=== PATIENT | female | born 1935 | race Caucasian/White ===

== ENCOUNTER → 2016-08-19 | Outpatient (CLI) | payer MEDICARE, BC ==
[2015-09-12 09:10] VITALS: BP 104/59
[~2016-08-19] MED LIST: ACET325T9 PO; ALEN70SO3 PO; ASPI81TA2 PO; CALC-507 PO; COLE1TAB PO; IBUP200T58 PO; LISI10TA2 PO; MULT-245 PO; OMEP40CA2 PO
--- NOTE | 2016-08-19 12:47 | RAD ---
Pelvis, single view, 08/19/2016: History: Low back pain Comparison is made to a study from 02/09/2015. There are old healed fractures of the superior and inferior pubic rami on the left. No recent pelvic fracture is seen. There is mild spurring at both hip joints. Bilateral pedicle screws and fixation rods are present at L5 and S1. IMPRESSION: No acute pelvic abnormality is detected.
== END | disposition home or self-care (01) ==
LOC: RAD 11:47
PROVIDERS: ATTEND Family Medicine
DX: M54.5 Low back pain (principal)
CPT/HCPCS: 72170

== ENCOUNTER → 2017-01-07 | Outpatient (CLI) | payer MEDICARE, BC ==
[2016-09-25 11:26] VITALS: BP 133/64
[~2017-01-07] MED LIST changes: +ASPI-630 PO; -ASPI81TA2 PO
--- NOTE | 2017-01-07 11:26 | CARD ---
APPROVED REPORT EXAM: Two-dimensional and M-mode echocardiogram with Doppler and color Doppler. Other Information Quality : GoodHR: 87bpm Rhythm : NSR INDICATION Congestive Heart Failure Chronic diastolic heart failure RISK FACTORS Hypertension Family History Leg edema 2D DIMENSIONS RVDd3.0 (2.9-3.5cm)Left Atrium(2D)3.1 (1.6-4.0cm) IVSd1.0 (0.7-1.1cm)Aortic Root(2D)2.4 (2.0-3.7cm) LVDd4.2 (3.9-5.9cm)LVOT Diameter2.1 (1.8-2.4cm) PWd1.0 (0.7-1.1cm)LVDs2.5 (2.5-4.0cm) FS (%) 40.7 %SV57.4 ml Aortic Valve AoV Peak Prabhu.133.2cm/sAoV VTI27.9cm AO Peak GR.7.1mmHgLVOT Peak Prabhu.109.6cm/s AO Mean GR.4mmHgAVA (VMAX)2.93cm2 AI P 1/2 Tvlz223gs Mitral Valve MV E Ptwhxrzn82.5cm/sMV E Peak Gr.2mmHg MV DECEL [id number] A Qewqhmzm45.0cm/s MV E Mean Gr.1mmHgE/A Ratio0.6 MV A Kxbwerap16iz Pulmonary Valve PV Peak Slgtzcuc801.5cm/s Tricuspid Valve TR P. Natbceyy865fy/sTR Peak Gr.25mmHg Pulmonary Vein S1 Uzbcvyna59.0cm/sD2 Xrfsnfki97.8cm/s PVa ioyeqzdm24imzo LEFT VENTRICLE The left ventricle is normal size. There is borderline to mild concentric left ventricular hypertroph y. The left ventricular systolic function is normal and the ejection fraction is within normal range. The Ejection Fraction is 60-65%. There is normal LV segmental wall motion. Transmitral Doppler flow pattern is Grade I-abnormal relaxation pattern. RIGHT VENTRICLE The right ventricle is normal size. There is normal right ventricular wall thickness. The right ventr icular systolic function is normal. ATRIA The left atrium size is normal. The right atrium size is normal. The interatrial septum is intact wit h no evidence for an atrial septal defect or patent foramen ovale as noted on 2-D or Doppler imaging. AORTIC VALVE The aortic valve is moderately sclerotic. The aortic valve is trileaflet. Doppler and Color Flow reve aled mild to moderate aortic regurgitation. There is no significant aortic valvular stenosis. MITRAL VALVE Mitral annular calcification is mild. The mitral valve leaflets are mildly thickened. There is no tushar dence of mitral valve prolapse. There is no mitral valve stenosis. Doppler and Color Flow revealed tr adam to mild mitral regurgitation. TRICUSPID VALVE Doppler and Color Flow revealed mild tricuspid regurgitation. The pulmonary artery systolic pressure is estimated at 28 mmHg. PULMONIC VALVE The pulmonary valve is not well visualized but appears to open adequately. Doppler and Color Flow rev ealed trace pulmonic valvular regurgitation. There is no pulmonic valvular stenosis by spectral Doppl er. GREAT VESSELS The aortic root is normal in size. The ascending aorta is normal in size. The pulmonary artery is nor mal. The IVC is normal in size and collapses >50% with inspiration. PERICARDIAL EFFUSION There is no evidence of significant pericardial effusion. Critical Notification Critical Value: No <Conclusion> The left ventricle is normal size. The left ventricular systolic function is normal and the ejection fraction is within normal range. The Ejection Fraction is 60-65%. There is borderline to mild concentric left ventricular hypertrophy. There is no significant aortic valvular stenosis. Doppler and Color Flow revealed mild to moderate aortic regurgitation. Doppler and Color Flow revealed trace to mild mitral regurgitation. Doppler and Color Flow revealed mild tricuspid regurgitation. The pulmonary artery systolic pressure is estimated at 28 mmHg.
== END | disposition home or self-care (01) ==
LOC: ECHO 08:44
PROVIDERS: ATTEND Internal Medicine Cardiovascular Disease
DX: I50.32 Chronic diastolic (congestive) heart failure (principal)
CPT/HCPCS: 93306

== ENCOUNTER → 2017-08-31 | Outpatient (CLI) | payer MEDICARE, BC ==
[~2017-08-31] MED LIST changes: -ACET325T9 PO; -ALEN70SO3 PO; -ASPI-630 PO; -CALC-507 PO; -COLE1TAB PO; -IBUP200T58 PO; +IOHEXOL 180 MG/ML 10 ML VIAL.; -LISI10TA2 PO; -MULT-245 PO; -OMEP40CA2 PO; +methylPREDNISolone ACETATE 40 MG/ML VIAL.; +methylPREDNISolone ACETATE 80 MG/ML VIAL.
== END | disposition home or self-care (01) ==
LOC: PNCL 13:21
DX: M51.16 Intervertebral disc disorders with radiculopathy, lumbar region (principal); M48.061 Spinal stenosis, lumbar region without neurogenic claudication; M96.1 Postlaminectomy syndrome, not elsewhere classified; I10 Essential (primary) hypertension; K21.9 Gastro-esophageal reflux disease without esophagitis; M19.90 Unspecified osteoarthritis, unspecified site; Z90.710 Acquired absence of both cervix and uterus; Z98.1 Arthrodesis status; Z98.49 Cataract extraction status, unspecified eye; Z79.82 Long term (current) use of aspirin; Z79.899 Other long term (current) drug therapy; Z88.8 Allergy status to other drugs, medicaments and biological substances
CPT/HCPCS: 62323; J1030; J1040; Q9965

== ENCOUNTER → 2017-09-14 | Outpatient (CLI) | payer MEDICARE, BC | END | disposition home or self-care (01) | LOC: PNCL 10:36 | DX: M51.16 Intervertebral disc disorders with radiculopathy, lumbar region (principal); M48.061 Spinal stenosis, lumbar region without neurogenic claudication; M96.1 Postlaminectomy syndrome, not elsewhere classified; I10 Essential (primary) hypertension; K21.9 Gastro-esophageal reflux disease without esophagitis; M19.90 Unspecified osteoarthritis, unspecified site; M81.0 Age-related osteoporosis without current pathological fracture; Z88.8 Allergy status to other drugs, medicaments and biological substances; Z98.49 Cataract extraction status, unspecified eye; Z90.710 Acquired absence of both cervix and uterus; Z87.440 Personal history of urinary (tract) infections; D64.9 Anemia, unspecified; Z82.49 Family history of ischemic heart disease and other diseases of the circulatory system | CPT/HCPCS: 62323; J1030; J1040; Q9965 ==

== ENCOUNTER → 2017-09-30 | Outpatient (CLI) | payer MEDICARE, BC ==
[~2017-09-30] MED LIST changes: +LIDOCAINE 1% PF 2 ML VIAL.
== END | disposition home or self-care (01) ==
LOC: PNCL 13:57
DX: M51.16 Intervertebral disc disorders with radiculopathy, lumbar region (principal); M48.061 Spinal stenosis, lumbar region without neurogenic claudication; M96.1 Postlaminectomy syndrome, not elsewhere classified; I10 Essential (primary) hypertension; K21.9 Gastro-esophageal reflux disease without esophagitis; Z90.710 Acquired absence of both cervix and uterus; Z87.440 Personal history of urinary (tract) infections; Z88.8 Allergy status to other drugs, medicaments and biological substances; M19.90 Unspecified osteoarthritis, unspecified site; M81.0 Age-related osteoporosis without current pathological fracture; Z82.49 Family history of ischemic heart disease and other diseases of the circulatory system
CPT/HCPCS: 62323; J1030; J1040; Q9965

== ENCOUNTER 2017-11-05 03:00 | Emergency (ER) | payer MEDICARE, BC ==
[2017-11-05] MEDS: diazePAM 5 MG TABLET PO (03:33)
[2017-11-05] MEDS: oxyCODONE/APAP 5/325 1 TAB TABLET PO (03:33)
== END 2017-11-05 04:52 | disposition home or self-care (01) ==
LOC: ER 03:00
DX: M25.552 Pain in left hip (principal); M25.562 Pain in left knee; G89.29 Other chronic pain; K21.9 Gastro-esophageal reflux disease without esophagitis; I12.9 Hypertensive chronic kidney disease with stage 1 through stage 4 chronic kidney disease, or unspecified chronic kidney disease; I50.9 Heart failure, unspecified; Z90.710 Acquired absence of both cervix and uterus; Z88.8 Allergy status to other drugs, medicaments and biological substances
CPT/HCPCS: 73502; 73562; 99284

== ENCOUNTER 2017-11-09 23:11 | Emergency (ER) | payer MEDICARE, BC ==
[2017-11-10] MEDS: HYDROcodone/APAP 5/325MG 1 TAB TABLET PO (00:25)
[2017-11-10 00:55] LABS: BILIRUBIN,URINE NEGATIVE (NEG); CLARITY,URINE CLEAR; COLOR,URINE YELLOW; GLUCOSE,URINE NEGATIVE (NEG); NITRITE,URINE NEGATIVE (NEG); PROTEIN,URINE NEGATIVE (NEG-TRACE); UROBILINOGEN,URINE 0.2 mg/dL (0.2 mg/dL)
[2017-11-10 01:06] LABS: BACTERIA,URINE 0 /HPF (0-FEW); RBC,URINE OCC /HPF (0-2); SQUAMOUS EPITHELIAL CELL,UR OCC /LPF; WBC,URINE OCC /HPF (0-4)
== END 2017-11-10 01:15 | disposition home or self-care (01) ==
LOC: ER 23:11
DX: G89.29 Other chronic pain (principal); M25.552 Pain in left hip; I11.0 Hypertensive heart disease with heart failure; I50.9 Heart failure, unspecified; K21.9 Gastro-esophageal reflux disease without esophagitis; Z90.710 Acquired absence of both cervix and uterus; Z79.891 Long term (current) use of opiate analgesic; Z88.8 Allergy status to other drugs, medicaments and biological substances
CPT/HCPCS: 73700; 81001; 99285-25

== ENCOUNTER → 2017-11-09 | Outpatient (CLI) | payer MEDICARE, BC | END | disposition home or self-care (01) | LOC: US 13:10 | DX: R60.0 Localized edema (principal); I13.0 Hypertensive heart and chronic kidney disease with heart failure and stage 1 through stage 4 chronic kidney disease, or unspecified chronic kidney disease; I50.9 Heart failure, unspecified; N18.9 Chronic kidney disease, unspecified | CPT/HCPCS: 93970 ==

== ENCOUNTER → 2017-11-26 | Outpatient (CLI) | payer MEDICARE, BC ==
[2017-11-26] MEDS: REGADENOSON 0.4 MG/5 ML DISP.SYRIN. IV (11:20)
== END | disposition home or self-care (01) ==
LOC: NM 09:19
DX: Z01.818 Encounter for other preprocedural examination (principal); M48.061 Spinal stenosis, lumbar region without neurogenic claudication; I13.0 Hypertensive heart and chronic kidney disease with heart failure and stage 1 through stage 4 chronic kidney disease, or unspecified chronic kidney disease; I50.32 Chronic diastolic (congestive) heart failure; N18.9 Chronic kidney disease, unspecified; K21.9 Gastro-esophageal reflux disease without esophagitis; E78.5 Hyperlipidemia, unspecified
CPT/HCPCS: 78452; 93017; 96374; 96375; 96376; A9500; J2785

== ENCOUNTER → 2018-02-03 | Outpatient (CLI) | payer MEDICARE, BC ==
[2017-12-21 11:00] VITALS: BP 146/73
[~2018-02-03] MED LIST changes: +ACET325T9 PO; +ALEN70SO3 PO; +ASPI-630 PO; +CALC-507 PO; +COLE1TAB PO; +DIAZ2TAB PO; +FURO20TA3 PO; +FURO40TA4 PO; +HYDR-2758 PO; +IBUP200T58 PO; -IOHEXOL 180 MG/ML 10 ML VIAL.; -LIDOCAINE 1% PF 2 ML VIAL.; +LISI10TA2 PO; +MULT-245 PO; +OMEP40CA2 PO; +POTA10TA12 PO; -methylPREDNISolone ACETATE 40 MG/ML VIAL.; -methylPREDNISolone ACETATE 80 MG/ML VIAL.
--- NOTE | 2018-02-03 17:40 | RAD ---
AP and lateral lumbar spine radiographs 02/03/2018 CLINICAL HISTORY: Low back pain. History of previous lumbar surgery. AP and lateral digital radiographs of the lumbar spine were obtained. Comparison is made to a CT scan of the lumbar spine dated 12/17/2017. There is diffuse osteopenia of the visualized bony structures. Moderate anterolisthesis of L5 in relation to S1 is noted. The patient is post right posterolateral fusion using pedicle screws, stabilizing rods and bone graft material at L5-S1. No fracture or subluxation of the lumbar vertebrae is seen. Degenerative changes are seen involving the lower thoracic and throughout the lumbar disc spaces consisting of varying degrees of disc space narrowing, vertebral endplate sclerosis and minimal to mild anterior and posterior vertebral body osteophyte formation. Degenerative changes are seen involving the facet joints of the mid and lower lumbar spine. Atherosclerotic calcification of the abdominal aorta is noted. Healed fractures of the left pubic symphysis are noted. IMPRESSION: Postsurgical and degenerative changes are seen involving lumbar spine as outlined above. No acute osseous or normality is seen. Electronically signed by: Glen Alfaro MD (02/03/2018 5:36 PM) [facility]
== END | disposition home or self-care (01) ==
LOC: RAD 11:24
PROVIDERS: ATTEND Neurological Surgery
DX: M47.896 Other spondylosis, lumbar region (principal); M47.894 Other spondylosis, thoracic region; I70.0 Atherosclerosis of aorta; M25.78 Osteophyte, vertebrae; M85.88 Other specified disorders of bone density and structure, other site
CPT/HCPCS: 72100

== ENCOUNTER → 2018-07-21 | Outpatient (CLI) | payer MEDICARE, BC ==
[2017-12-21 11:00] VITALS: BP 146/73
[~2018-07-21] MED LIST changes: -HYDR-2758 PO; +HYDR-2761 PO
--- NOTE | 2018-07-21 11:39 | RAD ---
EXAM: Left hip and pelvis, 3 views. HISTORY: Fall. COMPARISON: 11/05/2017 FINDINGS: A frontal view the pelvis and frontal and frog-leg views of the left hip are obtained. There are healed left pubic rami fractures. No acute fracture is seen. There is instrumented left posterior spinal fusion at L5-S1. There has been removal of left-sided transpedicular screws at L5-S1. There is degenerative change at the lower lumbar levels. There is suggestion of sclerosis within the right femoral head without convincing avascular necrosis. IMPRESSION: 1. Healed left pubic rami fractures. 2. No acute osseous finding. Electronically signed by: Nely Escamilla MD (07/21/2018 11:36 AM) [facility]
== END | disposition home or self-care (01) ==
LOC: RAD 10:15
PROVIDERS: ATTEND Nurse Practitioner Gerontology
DX: M25.552 Pain in left hip (principal); M43.27 Fusion of spine, lumbosacral region
CPT/HCPCS: 73502

== ENCOUNTER → 2019-02-07 | Outpatient (CLI) | payer MEDICARE, BC ==
[2017-12-21 11:00] VITALS: BP 146/73
--- NOTE | 2019-02-07 13:36 | RAD ---
EXAM: Lumbar spine, 3 views; thoracic spine, 3 views. HISTORY: Pain. COMPARISON: None. FINDINGS: Lumbar spine: 3 views of the lumbar spine are obtained. There is mild S-shaped lumbar scoliosis. There is instrumented right posterior spinal fusion at L5-S1. There is methylmethacrylate within the right aspect of S1. There is lumbar hyperlordosis. There is grade 1 anterolisthesis of L2 on L3, measuring approximately 4 mm. There is grade 1 anterolisthesis of L4 and L5, measuring approximately 6 mm. There is grade 1 anterolisthesis of L5 on S1, measuring approximately 9 mm. There is approximately 8 mm retrolisthesis of L3 on L4. There is degenerative endplate remodeling with disc space narrowing, osteophytosis and Schmorl's node formation primarily at L2-L3, and to a lesser extent, L3-L4. There are chronic healed fractures of the left pubic rami. The sacroiliac joints are intact. Thoracic spine: 3 views of the thoracic spine are obtained. There is mild anterolisthesis of C3 on C4 and C4 on C5. There is degenerative endplate remodeling with disc space narrowing and osteophytosis at C3 C6-C7. There is multilevel facet arthropathy involving the cervical spine. There is a moderate T6 compression fracture. There is endplate remodeling at multiple thoracic levels. IMPRESSION: 1. Moderate T6 compression fracture, of uncertain chronicity. 2. Multilevel degenerative change involving the lumbar spine, primarily at L2-L3 and L3-L4. 3. Right posterior spinal fusion at L5-S1. 4. Lumbar scoliosis and multilevel listhesis, described above. 5. Multilevel degenerative change involving the thoracic and cervical spine, described above. Electronically signed by: Nely Escamilla MD (02/07/2019 1:33 PM) [place] [id number]
== END | disposition home or self-care (01) ==
LOC: RAD 12:14
PROVIDERS: ATTEND Nurse Practitioner Gerontology
DX: M48.54XA Collapsed vertebra, not elsewhere classified, thoracic region, initial encounter for fracture (principal); M41.86 Other forms of scoliosis, lumbar region; M12.88 Other specific arthropathies, not elsewhere classified, other specified site; M47.896 Other spondylosis, lumbar region; M47.892 Other spondylosis, cervical region; M47.894 Other spondylosis, thoracic region; M48.061 Spinal stenosis, lumbar region without neurogenic claudication; M48.02 Spinal stenosis, cervical region
CPT/HCPCS: 72072; 72100

== ENCOUNTER → 2019-03-02 | Outpatient (CLI) | payer MEDICARE, BC ==
[2017-12-21 11:00] VITALS: BP 146/73
--- NOTE | 2019-03-02 17:15 | RAD ---
THORACIC SPINE WO CONTRAST INDICATION: T6 fracture TECHNIQUE: Multi-planar multi-weighted magnetic resonance imaging of the thoracic spine was performed without contrast using the standard protocol. COMPARISON: Radiographs 02/07/2019. FINDINGS: T6 compression fracture with 50 percent loss of vertebral body height. Fracture cleft along the superior endplate, and edema throughout the T6 vertebral body. No significant osseous retropulsion. The thoracic spine is normally aligned. Mild multilevel degenerative disc desiccation and disc height loss. Degenerative endplate edema at C7-T1. The spinal cord is normal in signal intensity. The conus medullaris terminates at a normal level. No soft tissue abnormality within the visualized chest or abdomen. The visualized thoracic aorta is normal caliber. Disc bulge at T5-6 results in mild spinal canal narrowing. Few additional tiny disc bulges without spinal canal stenosis. No significant thoracic neural foraminal narrowing. IMPRESSION: Acute to subacute T6 compression deformity with 50 percent height loss. No significant osseous retropulsion, although a disc bulge at C5-6 results in mild spinal canal narrowing. Electronically signed by: Gildardo Torres MD (03/02/2019 5:12 PM) [facility]
== END | disposition home or self-care (01) ==
LOC: MRI 14:41
PROVIDERS: ATTEND Neurological Surgery
DX: M50.13 Cervical disc disorder with radiculopathy, cervicothoracic region (principal); M48.03 Spinal stenosis, cervicothoracic region
CPT/HCPCS: 72146

== ENCOUNTER → 2019-03-30 | Outpatient (CLI) | payer MEDICARE, BC ==
[2017-12-21 11:00] VITALS: BP 146/73
[~2019-03-30] MED LIST changes: +GABA300C18 PO; +IOHEXOL 180 MG/ML 10 ML VIAL. ONE; +methylPREDNISolone ACETATE 40 MG/ML VIAL. ONE; +methylPREDNISolone ACETATE 80 MG/ML VIAL. ONE
--- NOTE | 2019-03-30 14:48 | PAIN ---
DATE OF SERVICE: 03/30/2019 PROGRESS NOTE FOR PAIN CLINIC DIAGNOSES: 1. Lumbar radiculopathy with lumbar degenerative disk disease and lumbar spinal stenosis and post-lumbar laminectomy syndrome. 2. Compression fracture T6 with thoracic radiculopathy. HISTORY OF PRESENT ILLNESS: The patient is an 83-year-old female who returns for followup status post lumbar epidural steroid injections, last seen 09/2017. The patient well with these, but ended up with lumbar decompressive surgery last year. The patient reports that did very well, she is still having some pain in the low back, left lower extremity, mostly in the posterior gluteus, lateral thigh, lateral anterior thigh, medial thigh, medial lower leg and posterior calf, but her main complaint is pain in the mid upper back radiating to the right flank just under the right breast on her right rib cage. The patient reports she had a fall x 2 at home did have some x-rays done and she has had a thoracic spine MRI showing a T6 compression fracture, acute to subacute with 50% height loss. No significant osseous retropulsion, although resulting in disk bulge at C5-C6, showing some mild spinal canal narrowing at that level. The patient reports that the pain is worsened when she is up and around and sometimes in the morning is worse, but it is usually better with sitting or lying down, does not awaken her from sleep very frequently. The patient reports also some pain in the low back and left leg is noted. The patient reports no new motor or sensory deficits, no new bowel or bladder incontinence or other complaints. The patient reports 8, pain is an 8 on a scale of 10 at its worst over the past week, 7 on average, 6-7 at its least aching and sharp, radiating and shooting in quality. PHYSICAL EXAMINATION: VITAL SIGNS: The patient's blood pressure 149/75, pulse 85, respirations 18, temperature 97.9 degrees Fahrenheit, height is 4 feet 11 inches, weighs 112 pounds. GENERAL: The patient is awake, alert, oriented, appropriate, very pleasant demeanor. The patient is accompanied by her daughter. HEENT: Shows normocephalic, atraumatic. Extraocular movements are intact and symmetrical. Oral cavity: Mucous membranes moist and pink. Dentition is intact. NECK: Shows anterior throat supple without palpable lymphadenopathy noted. Swallow reflex symmetrical. CHEST: Shows normal on inspection. Breath sounds are clear to auscultation bilaterally. HEART: Shows S1, S2 clear. No murmurs auscultated. ABDOMEN: Soft, nontender, nondistended. No palpable organomegaly is noted. No rebound or guarding demonstrated. BACK: Shows spine grossly in the midline. Normal appearing thoracic kyphosis and lumbar lordotic curvature, slightly flattened with well-healed surgical scarring noted. With palpation, there is some moderate tenderness with palpation over about the T6 region of the spinous processes above and below it is slightly tender as well, but only mildly without significant radiation. The patient has good rotational motion of the thoracic spine, both laterally as well as extension and flexion without exacerbation of pain. Low back shows some moderate tenderness with palpation throughout the upper, middle and lower distribution of paraspinous musculature diffusely, but without radiation as well. No difficulty with rotation as well as extension and flexion of lumbar spine. EXTREMITIES: The patient's lower extremities show deep tendon reflexes at 1+ in the patellar and tendo-calcaneus tendons. Motor exam is approximately 4 on a scale of 5 on the left and 5/5 on the right with dorsiflexion and extension. PLAN: Options were discussed with the patient. The patient's old chart was reviewed as her current medication regimen updated. Current review of systems updated today as well. We will proceed with a thoracic epidural steroid injection at the T6 level. Risks were discussed including but not limited to bleeding, infection, possibility of epidural hematoma and subsequent neurological compromise, dural puncture, headaches, spinal cord and/or nerve damage, side effects of steroid medication and poor results regarding pain control. The patient understands and wished to proceed. The patient will return to clinic in approximately 2 weeks for followup. She was counseled as to return appointment, activity level and side effects to be aware of. DIAGNOSIS: T6 compression fracture with thoracic radiculopathy. PROCEDURE: Thoracic epidural steroid injection using C-arm fluoroscopic guidance under sterile prep and drape using local anesthetic. MEDICATION INJECTED: Total of 120 mg Depo-Medrol plus 10 mL of preservative-free normal saline and 2 mL of contrast at the T6-T7 level. CONDITION AT DISCHARGE: Stable. The patient tolerated the procedure well, had no complications. CEM STARKEY MD DR: TOMMY/lynn JOB#: [id number] / [id number]
== END ==
LOC: PNCL 11:03
PROVIDERS: ATTEND Anesthesiology
DX: M51.16 Intervertebral disc disorders with radiculopathy, lumbar region (principal); M48.54XA Collapsed vertebra, not elsewhere classified, thoracic region, initial encounter for fracture; M96.1 Postlaminectomy syndrome, not elsewhere classified; M48.061 Spinal stenosis, lumbar region without neurogenic claudication
CPT/HCPCS: 62321; J1030; J1040; Q9965

== ENCOUNTER → 2019-04-13 | Outpatient (CLI) | payer MEDICARE, BC ==
[2017-12-21 11:00] VITALS: BP 146/73
[~2019-04-13] MED LIST changes: -IOHEXOL 180 MG/ML 10 ML VIAL. ONE; -methylPREDNISolone ACETATE 40 MG/ML VIAL. ONE; -methylPREDNISolone ACETATE 80 MG/ML VIAL. ONE
--- NOTE | 2019-04-13 15:08 | CARD ---
MR#: [id number] Date of Study: 04/13/2019 Ordering Physician: SHERIE PALMER, Referring Physician: SHERIE PALMER, Tech: Fela Medina APPROVED REPORT EXAM: Two-dimensional and M-mode echocardiogram with Doppler and color Doppler. Other Information Quality : GoodHR: 89bpm INDICATION LV Function:Diastolic Congestive Heart Failure RISK FACTORS Hypertension 2D DIMENSIONS Left Atrium(2D)3.4 (1.6-4.0cm)IVSd1.1 (0.7-1.1cm) Aortic Root(2D)2.6 (2.0-3.7cm)LVDd4.7 (3.9-5.9cm) LVOT Diameter1.9 (1.8-2.4cm)PWd0.8 (0.7-1.1cm) LVDs2.4 (2.5-4.0cm)FS (%) 48.5 % SV80.9 ml Aortic Valve AoV Peak Prabhu.145.4cm/sAoV VTI24.0cm AO Peak GR.8.5mmHgLVOT Peak Prabhu.130.0cm/s LVOT VTI 25.19cmAO Mean GR.4mmHg AMADEO (VMAX)2.40to5OJH (VTI)3.01cm2 AI P 1/2 Hqpy250rn Mitral Valve MV E Cmwpybsz99.9cm/sMV DECEL ETYV151dd MV A Tnuchdgc49.2cm/sMV E Mean Gr.1mmHg MV RKF63kzU/A Ratio0.8 MVA (PHT)3.87cm2 TDI E/Lateral E'10.7E/Medial E'10.4 Pulmonary Valve PV Peak Rounzuqp78.0cm/sPV Peak Grad.3mmHg Tricuspid Valve TR P. Fbfkqkxa171ss/sRAP PNWSIUPB5prRg TR Peak Gr.81lxIzRYDA56ejMz Pulmonary Vein S1 Equehzwk55.5cm/sD2 Ocgqigrg24.3cm/s PVa bmapiavr995helo LEFT VENTRICLE The left ventricle is normal size. There is mild concentric left ventricular hypertrophy. The left ve ntricular systolic function is normal and the ejection fraction is within normal range. The Ejection Fraction is 60-65%. There is normal LV segmental wall motion. Transmitral Doppler flow pattern is Gra de I-abnormal relaxation pattern. RIGHT VENTRICLE The right ventricle is normal size. There is normal right ventricular wall thickness. The right ventr icular systolic function is normal. ATRIA The left atrium size is normal. The right atrium size is normal. The interatrial septum is intact wit h no evidence for an atrial septal defect or patent foramen ovale as noted on 2-D or Doppler imaging. AORTIC VALVE The aortic valve is thickened but opens well. Doppler and Color Flow revealed mild aortic regurgitati on. There is no significant aortic valvular stenosis. MITRAL VALVE The mitral valve is thickened but opens well. There is no evidence of mitral valve prolapse. There is no mitral valve stenosis. Doppler and Color-flow revealed trace mitral regurgitation. TRICUSPID VALVE The tricuspid valve is normal in structure and function. Doppler and Color Flow revealed mild tricusp id regurgitation with an estimated PAP of 33 mmHg. There is no tricuspid valve prolapse or vegetation . There is no tricuspid valve stenosis. PULMONIC VALVE The pulmonary valve is normal in structure and function. Doppler and Color Flow revealed trace pulmon ic valvular regurgitation. GREAT VESSELS The aortic root is normal in size. The IVC is normal in size and collapses >50% with inspiration. PERICARDIAL EFFUSION There is no evidence of significant pericardial effusion. Critical Notification Critical Value: No <Conclusion> The left ventricle is normal size. The left ventricular systolic function is normal and the ejection fraction is within normal range. The Ejection Fraction is 60-65%. There is mild concentric left ventricular hypertrophy. Doppler and Color Flow revealed mild aortic regurgitation. There is no significant aortic valvular stenosis. Doppler and Color-flow revealed trace mitral regurgitation. Doppler and Color Flow revealed mild tricuspid regurgitation with an estimated PAP of 33 mmHg. Signed by : Benny Benitez MD Electronically Approved : 04/13/2019 15:07:39
== END | disposition home or self-care (01) ==
LOC: ECHO 12:42
PROVIDERS: ATTEND Internal Medicine Cardiovascular Disease
DX: I08.2 Rheumatic disorders of both aortic and tricuspid valves (principal); I11.0 Hypertensive heart disease with heart failure; I50.32 Chronic diastolic (congestive) heart failure
CPT/HCPCS: 93306

== ENCOUNTER 2019-04-17 09:50 | Emergency (ER) | payer MEDICARE, BC ==
[~2019-04-17] VITALS: Ht 149.9 cm; Wt 50.8 kg
[2019-04-17 10:15] LABS: BASO % 0 % (0-3); EOS # 0.1 x10^3/uL (0.0-0.7); EOS % 1 % (0-3); HEMATOCRIT 32.5 % (36.0-47.0); HEMOGLOBIN 11.2 g/dL (12.0-15.5); LYMPH % 9 % (24-48); MEAN CORPUSCULAR HEMOGLOBIN 34 pg (25-35); MEAN CORPUSCULAR HGB CONC 34 g/dL (31-37); MEAN CORPUSCULAR VOLUME 100 fL (79-100); MONO # 0.4 x10^3/uL (0.0-1.1); MONO % 3 % (0-9); NEUT # 9.5 x10^3/uL (1.8-7.7); NEUT % 87 % (31-73); PLATELET COUNT 231 x10^3/uL (140-400); RED BLOOD COUNT 3.26 x10^6/uL (3.50-5.40); RED CELL DISTRIBUTION WIDTH 14.4 % (11.5-14.5); WHITE BLOOD COUNT 10.9 x10^3/uL (4.0-11.0)
[2019-04-17 10:26] LABS: CALCIUM 9.2 mg/dL (8.5-10.1); CREATININE 1.1 mg/dL (0.6-1.0); GFR 47.4; POTASSIUM 4.1 mmol/L (3.5-5.1)
[2019-04-17 10:31] LABS: ALBUMIN 4.1 g/dL (3.4-5.0); ALBUMIN/GLOBULIN RATIO 1.3 (1.0-1.7); MAGNESIUM 1.9 mg/dL (1.8-2.4); TOTAL BILIRUBIN 0.4 mg/dL (0.2-1.0); TOTAL PROTEIN 7.2 g/dL (6.4-8.2)
[2019-04-17 10:37] LABS: PROTHROMBIN TIME PATIENT 12.9 SEC (11.7-14.0)
[2019-04-17 10:39] LABS: CLARITY,URINE BLOODY; COLOR,URINE RED
[2019-04-17 10:40] LABS: BACTERIA,URINE FEW /HPF (0-FEW); RBC,URINE TNTC /HPF (0-2); SQUAMOUS EPITHELIAL CELL,UR OCC /LPF; WBC,URINE OCC /HPF (0-4)
--- NOTE | 2019-04-17 11:19 | RAD ---
CT abdomen and pelvis without contrast: Reason for examination: Hematuria. Helical images were obtained through the abdomen and pelvis with no intravenous or oral contrast administered. Reconstruction was performed in sagittal and coronal planes. Exposure: One or more of the following individualized dose reduction techniques were utilized for this examination: 1. Automated exposure control 2. Adjustment of the mA and/or kV according to patient size 3. Use of iterative reconstruction technique. The lung bases are clear. The heart size is normal with no pericardial effusion. No focal abnormality seen at the liver, spleen, adrenal glands or pancreas. The abdominal aorta shows arteriosclerotic vascular calcification but no aneurysmal dilatation is seen. No abnormality is seen at the inferior vena cava. The kidneys bilaterally show small hyperdense lesions which may represent hemorrhagic cysts however angiomyolipoma or renal cell carcinoma cannot be excluded. The largest lesion is in the lower pole of the left kidney and measures 1.8 cm in greatest dimension with no renal calculi hydronephrosis or obstructive uropathy is evident. The stomach is contracted. The small intestinal tract shows no abnormal dilatation or wall thickening and no bowel obstruction is seen. There is no evidence of diverticulosis or diverticulitis. The bladder is not distended. No abnormality is seen at the vaginal cuff. There are benign-appearing calcifications in the pelvis with some representing phleboliths. No free fluid or free air is seen in the abdomen or pelvis. There are postop changes at the right pedicles at the L5-S1 level. There also appears to be an acute fracture at the base of the right pedicle of the L4 vertebral body as well as an acute fracture of the left lamina of the L4 vertebral body. There is a grade 1 anterolisthesis of L2 on L3. There is a grade 1 retrolisthesis of L3 on L4. There is a grade 1 anterolisthesis of L4 on L5. There is a grade 2 anterolisthesis of L5 on S1. These alignment changes however are stable. Healed fracture at the left ischium. IMPRESSION: Multiple small hyperdense lesions in the kidneys bilaterally with the largest at the lower pole the left kidney measuring 1.8 cm in size. These may represent hemorrhagic cysts. Differential would include angiomyolipoma renal cell carcinoma. No renal calculi, hydronephrosis or obstructive uropathy evident. Acute fractures at the base of the right pedicle of L4 and laterally in the left lamina of L4. Electronically signed by: Yessenia Tineo MD (04/17/2019 11:16 AM) [facility]
--- NOTE | 2019-04-17 11:21 | RAD ---
Study: PORTABLE CHEST 1V Indication: Near syncope. Comparison: 11/10/2012 Findings: The cardiomediastinal silhouette is within normal limits for size. Mildly tortuous thoracic aorta with vascular calcifications. No lobar infiltrate, pleural effusion or pneumothorax. Impression: No acute radiographic abnormality of the chest. Electronically signed by: ANIL DO MD (04/17/2019 11:18 AM) [facility]
--- NOTE | 2019-04-17 12:11 | PHYS DOC ---
Past Medical History Past Medical History: CHF, GERD, Hypertension, Other Additional Past Medical Histor: osteoporosis, chronic back pain Past Surgical History: Hysterectomy, Other Additional Past Surgical Histo: back sx x 2, R breast lump removed Alcohol Use: None Drug Use: None Adult General Chief Complaint Chief Complaint: BLOOD IN URINE [facility] HPI Patient is a 83 year old female patient with hypertension, CHF, osteoporosis, chronic back pain after who presents via EMS with complaint of almost passing clots and bloody urine. Patient states she finished a course of antibiotic for UTI 3 days ago and this morning while she was in the bathroom had gross hematuria with large amount of passing blood and had been near syncope with dizziness and generalized weakness without loss of consciousness, chest pain, shortness of breath, focal neuro deficit. Patient states she feels better after arrival to ER. Review of Systems Review of Systems Constitutional: Denies fever or chills [] Eyes: Denies change in visual acuity, redness, or eye pain [] HENT: Denies nasal congestion or sore throat [] Respiratory: Denies cough or shortness of breath [] Cardiovascular: No additional information not addressed in HPI [] GI: Denies abdominal pain, nausea, vomiting, bloody stools or diarrhea [] : Denies dysuria, reports hematuria [] Musculoskeletal: Denies back pain or joint pain [] Integument: Denies rash or skin lesions [] Neurologic: Denies headache, focal weakness or sensory changes [] Endocrine: Denies polyuria or polydipsia [] All other systems were reviewed and found to be within normal limits, except as documented in this note. Allergies Allergies Allergies Coded Allergies Type Severity Reaction Last Updated Verified celecoxib Allergy Intermediate 12/14/17 Yes Physical Exam Physical Exam Constitutional: Well developed, well nourished, mild distress, non-toxic appearance. [] HENT: Normocephalic, atraumatic, bilateral external ears normal, oropharynx van [address], no oral exudates, nose normal. [] Eyes: PERRLA, EOMI, conjunctiva normal, no discharge. [] Neck: Normal range of motion, no tenderness, supple, no stridor. [] Cardiovascular:Heart rate regular rhythm, no murmur [] Lungs & Thorax: Bilateral breath sounds clear to auscultation [] Abdomen: Bowel sounds normal, soft, no tenderness, no masses, no pulsatile masses. [] Skin: Warm, dry, no erythema, no rash. [] Back: No tenderness, no CVA tenderness. [] Extremities: No tenderness, no cyanosis, no clubbing, ROM intact, no edema. [] Neurologic: Alert and oriented X 3, normal motor function, normal sensory function, no focal deficits noted. [] Psychologic: Affect normal, judgement normal, mood normal. [] Current Patient Data Vital Signs Vital Signs Date Time Temp Pulse Resp B/P (MAP) Pulse Ox O2 Delivery O2 Flow Rate FiO2 04/17/19 14:39 80 18 127/58 (81) 95 Room Air 04/17/19 09:50 97.7 97.7 Lab Values Laboratory Tests Test 04/17/19 10:00 04/17/19 10:05 White Blood Count 10.9 x10^3/uL (4.0-11.0) Red Blood Count 3.26 x10^6/uL (3.50-5.40) L Hemoglobin 11.2 g/dL (12.0-15.5) L Hematocrit 32.5 % (36.0-47.0) L Mean Corpuscular Volume 100 fL (79-100) Mean Corpuscular Hemoglobin 34 pg (25-35) Mean Corpuscular Hemoglobin Concent 34 g/dL (31-37) Red Cell Distribution Width 14.4 % (11.5-14.5) Platelet Count 231 x10^3/uL (140-400) Neutrophils (%) (Auto) 87 % (31-73) H Lymphocytes (%) (Auto) 9 % (24-48) L Monocytes (%) (Auto) 3 % (0-9) Eosinophils (%) (Auto) 1 % (0-3) Basophils (%) (Auto) 0 % (0-3) Neutrophils # (Auto) 9.5 x10^3/uL (1.8-7.7) H Lymphocytes # (Auto) 1.0 x10^3/uL (1.0-4.8) Monocytes # (Auto) 0.4 x10^3/uL (0.0-1.1) Eosinophils # (Auto) 0.1 x10^3/uL (0.0-0.7) Basophils # (Auto) 0.0 x10^3/uL (0.0-0.2) Segmented Neutrophils % 85 % (35-66) H Band Neutrophils % 3 % (0-9) Lymphocytes % 10 % (24-48) L Monocytes % 2 % (0-10) Platelet Estimate Adequate (ADEQUATE) Prothrombin Time 12.9 SEC (11.7-14.0) Prothrombin Time INR 1.0 (0.8-1.1) Sodium Level 132 mmol/L (136-145) L Potassium Level 4.1 mmol/L (3.5-5.1) Chloride Level 98 mmol/L (98-107) Carbon Dioxide Level 23 mmol/L (21-32) Anion Gap 11 (6-14) Blood Urea Nitrogen 33 mg/dL (7-20) H Creatinine 1.1 mg/dL (0.6-1.0) H Estimated GFR (Cockcroft-Gault) 47.4 BUN/Creatinine Ratio 30 (6-20) H Glucose Level 177 mg/dL (70-99) H Calcium Level 9.2 mg/dL (8.5-10.1) Magnesium Level 1.9 mg/dL (1.8-2.4) Total Bilirubin 0.4 mg/dL (0.2-1.0) Aspartate Amino Transferase (AST) 17 U/L (15-37) Alanine Aminotransferase (ALT) 14 U/L (14-59) Alkaline Phosphatase 40 U/L (46-116) L Troponin I Quantitative < 0.017 ng/mL (0.000-0.055) LL-Frp-W-Type Natriuretic Peptide 191 pg/mL (0-449) Total Protein 7.2 g/dL (6.4-8.2) Albumin 4.1 g/dL (3.4-5.0) Albumin/Globulin Ratio 1.3 (1.0-1.7) Urine Collection Type Unknown Urine Color Red Urine Clarity Bloody Urine pH Urine Specific [place] 1.030 Urine Protein mg/dL (NEG-TRACE) Urine Glucose (UA) mg/dL (NEG) Urine Ketones (Stick) mg/dL (NEG) Urine Blood (NEG) Urine Nitrite (NEG) Urine Bilirubin (NEG) Urine Urobilinogen Dipstick mg/dL (0.2 mg/dL) Urine Leukocyte Esterase (NEG) Urine RBC Tntc /HPF (0-2) Urine WBC Occ /HPF (0-4) Urine Squamous Epithelial Cells Occ /LPF Urine Bacteria Few /HPF (0-FEW) Laboratory Tests 04/17/19 10:00 Laboratory Tests 04/17/19 10:00 EKG EKG EKG interpreted by me. EKG at 1022 showed normal sinus rhythm at rate of 82, left atrial abnormality, no acute ST and T-wave elevation Radiology/Procedures Radiology/Procedures [][place] [id number] IMAGING REPORT Signed PATIENT: JUDY SEBASTIAN: [id number] : 1935 LOCATION: ER AGE: 83 SEX: F EXAM STATUS: REG ER ORD. PHYSICIAN: DEENA SEO MD REASON: near syncope PROCEDURE: PORTABLE CHEST 1V Study: PORTABLE CHEST 1V Indication: Near syncope. Comparison: 11/10/2012 Findings: The cardiomediastinal silhouette is within normal limits for size. Mildly tortuous thoracic aorta with vascular calcifications. No lobar infiltrate, pleural effusion or pneumothorax. Impression: No acute radiographic abnormality of the chest. Electronically signed by: ANIL DO MD (04/17/2019 11:18 AM) [facility] DICTATED and SIGNED BY: ANIL DO MD DATE: 04/17/[address] [address] IMAGING REPORT Signed PATIENT: JUDY SEBASTIAN: [id number] : 1935 LOCATION: ER AGE: 83 SEX: F EXAM STATUS: REG ER ORD. PHYSICIAN: DEENA SEO MD REASON: hematuria PROCEDURE: CT ABDOMEN PELVIS WO CONTRAST CT abdomen and pelvis without contrast: Reason for examination: Hematuria. Helical images were obtained through the abdomen and pelvis with no intravenous or oral contrast administered. Reconstruction was performed in sagittal and coronal planes. Exposure: One or more of the following individualized dose reduction techniques were utilized for this examination: 1. Automated exposure control 2. Adjustment of the mA and/or kV according to patient size 3. Use of iterative reconstruction technique. The lung bases are clear. The heart size is normal with no pericardial effusion. No focal abnormality seen at the liver, spleen, adrenal glands or pancreas. The abdominal aorta shows arteriosclerotic vascular calcification but no aneurysmal dilatation is seen. No abnormality is seen at the inferior vena cava. The kidneys bilaterally show small hyperdense lesions which may represent hemorrhagic cysts however angiomyolipoma or renal cell carcinoma cannot be excluded. The largest lesion is in the lower pole of the left kidney and measures 1.8 cm in greatest dimension with no renal calculi hydronephrosis or obstructive uropathy is evident. The stomach is contracted. The small intestinal tract shows no abnormal dilatation or wall thickening and no bowel obstruction is seen. There is no evidence of diverticulosis or diverticulitis. The bladder is not distended. No abnormality is seen at the vaginal cuff. There are benign-appearing calcifications in the pelvis with some representing phleboliths. No free fluid or free air is seen in the abdomen or pelvis. There are postop changes at the right pedicles at the L5-S1 level. There also appears to be an acute fracture at the base of the right pedicle of the L4 vertebral body as well as an acute fracture of the left lamina of the L4 vertebral body. There is a grade 1 anterolisthesis of L2 on L3. There is a grade 1 retrolisthesis of L3 on L4. There is a grade 1 anterolisthesis of L4 on L5. There is a grade 2 anterolisthesis of L5 on S1. These alignment changes however are stable. Healed fracture at the left ischium. IMPRESSION: Multiple small hyperdense lesions in the kidneys bilaterally with the largest at the lower pole the left kidney measuring 1.8 cm in size. These may represent hemorrhagic cysts. Differential would include angiomyolipoma renal cell carcinoma. No renal calculi, hydronephrosis or obstructive uropathy evident. Acute fractures at the base of the right pedicle of L4 and laterally in the left lamina of L4. Electronically signed by: Hasmukh Moore MD (04/17/2019 11:16 AM) [facility] DICTATED and SIGNED BY: HASMUKH MOORE MD DATE: 04/17/19 1116 Course & Med Decision Making Course & Med Decision Making Pertinent Labs and Imaging studies reviewed. (See chart for details) Evaluation of patient in ER showed 82-year-old female patient with hematuria and patient had stable vital signs without distress in ER. CT abdomen and pelvis showed multiple renal mass with hemorrhage. [facility] was informed for transfer. Patient didn't want transfer to [facility] and requesting [facility]. Dr Hong Ronquillo accepted transfer to [facility] at 1340. Dragon Disclaimer Dragon Disclaimer This electronic medical record was generated, in whole or in part, using a voice recognition dictation system. Departure Departure Impression: Primary Impression: Renal hemorrhage, left Additional Impressions: Near syncope Hematuria Renal cyst Disposition: 05 TRANSFER OTHER ([facility] at 1341) Condition: IMPROVED Referrals: EMELYN MARTINES MD (PCP) Problem Qualifiers Additional Impressions: Hematuria Hematuria type: gross Qualified Codes: R31.0 - Gross hematuria DEENA SEO MD Apr 17, 2019 12:11
[2019-04-17 13:25] LABS: % BANDS 3 % (0-9); % LYMPHS 10 % (24-48); % MONOS 2 % (0-10); % SEGS 85 % (35-66)
[2019-04-17 13:26] LABS: PLT ESTIMATE ADEQUATE (ADEQUATE)
[2019-04-17 14:39] VITALS: BP 127/58
--- NOTE | 2019-04-17 15:08 | EKG ---
[facility] [address] [place] [address] Test Date: 2019-04-17 Test Time: 10:22:20 Pat Name: JUDY SEBASTIAN Department: Room: Gender: F [employer]: : 1935 Requested By: DEENA SEO Order Number: [id number] Reading MD: Ziggy Soni MD Measurements Intervals [place] Rate: 81 P: 38 SD: 154 QRS: 4 QRSD: 88 T: 41 QT: 350 QTc: 411 Interpretive Statements SINUS RHYTHM Electronically Signed On 04-20-2019 11:06:33 [employer] by Ziggy Soni MD
== END 2019-04-17 15:09 | disposition short-term general hospital (02) ==
LOC: ER 09:50
DX: N28.1 Cyst of kidney, acquired (principal); N28.89 Other specified disorders of kidney and ureter; R31.0 Gross hematuria; R55 Syncope and collapse; I11.0 Hypertensive heart disease with heart failure; I50.9 Heart failure, unspecified; K21.9 Gastro-esophageal reflux disease without esophagitis; G89.29 Other chronic pain; Z90.710 Acquired absence of both cervix and uterus; Z88.8 Allergy status to other drugs, medicaments and biological substances
CPT/HCPCS: 36415; 71045; 74176; 80053; 81001; 83735; 83880; 84484; 85007; 85025; 85610; 93005; 99285-25

== ENCOUNTER → 2019-05-18 | Outpatient (CLI) | payer MEDICARE, BC ==
[~2019-05-18] MED LIST changes: +IOHEXOL 180 MG/ML 10 ML VIAL. ONE; +methylPREDNISolone ACETATE 40 MG/ML VIAL. ONE; +methylPREDNISolone ACETATE 80 MG/ML VIAL. ONE
--- NOTE | 2019-05-18 14:24 | PAIN ---
DATE OF SERVICE: 05/18/2019 PROGRESS NOTE FOR PAIN CLINIC DIAGNOSES: Lumbar radiculopathy with lumbar spinal stenosis, lumbar degenerative disk disease and lumbar post-laminectomy syndrome. HISTORY OF PRESENT ILLNESS: The patient is an 83-year-old female who returns for followup status post thoracic epidural steroid injection on 03/30/2019. The patient did very well with this, about 75% improvement. The patient reports the pain is in her low back now, not had any recent falls or injuries. She had some interim hematuria and was evaluated stat with a CT scan showing the kidneys, but also showing acute L4 fracture on the left lamina of the L4 vertebral body and acute fracture of the base of the right pedicle of the L4 vertebral body as well. The patient reports still significant pain in the low back, mainly radiating from the low back into the right and left posterior gluteus, posterolateral thigh, worse on the left side. The patient reports it is aching and sharp, worse with walking, standing, changing positions, better with sitting, but only for about 15 minutes and the pain began to return again. The patient reports it is better with lying down, does not awaken her from sleep at night. The patient reports no new motor or sensory deficits or other complaints. PHYSICAL EXAMINATION: VITAL SIGNS: The patient's blood pressure 143/69, pulse 81, respirations 16, temperature 97.9 degrees Fahrenheit, weight is 113 pounds. GENERAL: The patient is awake, alert, oriented, appropriate, very pleasant demeanor. HEENT: Shows normocephalic, atraumatic. Extraocular movements are intact and symmetrical. Oral cavity: Mucous membranes moist and pink. Dentition is intact. NECK: Shows anterior throat supple without palpable lymphadenopathy noted. Swallow reflex symmetrical. CHEST: Shows normal on inspection. Breath sounds are clear bilaterally. HEART: Shows S1, S2 clear. ABDOMEN: Soft, nontender, nondistended. BACK: Shows spine grossly in the midline. Slight exaggeration of thoracic kyphosis, some flattening of lumbar lordotic curvature, well-healed surgical scarring noted. Lumbar paraspinous muscle shows symmetrical on inspection with some mild tenderness diffusely throughout the upper, middle and lower distribution of paraspinous muscles bilaterally, slightly more on the left in the low lumbar distribution, but without asymmetry, without trigger points or radiation. The patient has good rotational motion of lumbar spine, both laterally as well as extension and flexion without significant increase in pain. EXTREMITIES: The patient's lower extremities show deep tendon reflexes 1+ in the patellar and tendo calcaneus tendons. Motor exam is approximately 4 on a scale of 5 on the left and 5/5 on the right. Peripheral pulses are 1+ posterior tibia. No peripheral edema is noted bilaterally. Options were discussed with the patient. The patient's old chart was reviewed as her current medication regimen updated. Current review of systems updated today as well. We will proceed with lumbar epidural steroid injection today with fluoroscopic guidance. Risks were again discussed including, but not limited to bleeding, infection, possibility of epidural hematoma, subsequent neurological compromise, dural puncture, headaches, spinal cord and/or nerve damage, side effects of steroid medication and poor results regarding pain control. The patient understands and wished to proceed. The patient will return to clinic in approximately 2 weeks for followup. She was counseled on return appointment, activity level and side effects to be aware of. DIAGNOSES: Lumbar radiculopathy with lumbar spinal stenosis, lumbar degenerative disk disease, post-lumbar laminectomy syndrome. PROCEDURE: Lumbar epidural steroid injection, translaminar approach L4-L5 level using C-arm fluoroscopic guidance under sterile prep and drape using local anesthetic. MEDICATION INJECTED: A total of 120 mg Depo-Medrol plus 10 mL of preservative-free normal saline and 2 mL of contrast. CONDITION AT DISCHARGE: Stable. The patient tolerated procedure well, had no complications. CEM STARKEY MD DR: TOMMY/lynn JOB#: [id number] / [id number]
== END ==
LOC: PNCL 10:42
PROVIDERS: ATTEND Anesthesiology
DX: M51.16 Intervertebral disc disorders with radiculopathy, lumbar region (principal); M48.061 Spinal stenosis, lumbar region without neurogenic claudication; M96.1 Postlaminectomy syndrome, not elsewhere classified
CPT/HCPCS: 62323; J1030; J1040; Q9965

== ENCOUNTER → 2019-06-08 | Outpatient (CLI) | payer MEDICARE, BC ==
[~2019-06-08] MED LIST changes: +COLE1TAB2 PO
--- NOTE | 2019-06-09 00:18 | PAIN ---
DATE OF SERVICE: 06/08/2019 PROGRESS NOTE FOR PAIN CLINIC DIAGNOSES: Lumbar radiculopathy with lumbar spinal stenosis, lumbar degenerative disk disease and post-lumbar laminectomy syndrome. HISTORY OF PRESENT ILLNESS: The patient is an 83-year-old female who returns for followup status post lumbar epidural steroid injection x 1. Reports about 90% improvement for the first few weeks after the injection. The patient reports the pain is returning now in the low back and left lower extremity; mostly just in the back and the hip, not as much in the leg. The patient reports it is an 8 on a scale of 10 at its worst over the past week, 7 on average, 5 at its least and is a 5 today. The patient reports it is aching and sharp, radiating to posterior gluteus, posterolateral thigh, lateral anterior thigh, sometimes in the left groin, but into the left anterior thigh and medial thigh as well. The patient reports it is worse with walking, standing, changing positions, better with sitting or lying down, does not awaken her from sleep, however. The patient reports initially she was doing better with household activities, walking greater distances, traveling with greater ease and comfort as well. No new motor or sensory deficits, no new changes. PHYSICAL EXAMINATION: VITAL SIGNS: The patient's blood pressure is 122/58, pulse 77, respirations 18, temperature 97.8 degrees Fahrenheit. Height is 4 feet 11 inches. Weight is 114 pounds. GENERAL: The patient is awake, alert, oriented, appropriate, very pleasant demeanor. HEENT: Shows normocephalic, atraumatic. Extraocular movements are intact and symmetrical. Oral cavity shows mucous membranes moist and pink. Dentition is intact. NECK: Shows anterior throat supple without palpable lymphadenopathy noted. Swallow reflex symmetrical. CHEST: Shows normal on inspection. Breath sounds are clear bilaterally. HEART: Shows S1 and S2 clear. No murmurs auscultated. ABDOMEN: Soft, nontender, nondistended. BACK: Shows spine grossly in the midline. Normal appearing thoracic kyphosis and lumbar lordotic curvature is slightly flattened with a well-healed surgical scar noted. Lumbar paraspinous muscle shows symmetrical on inspection and with palpation shows some mild tenderness throughout the upper, middle and lower distribution of the paraspinous muscles bilaterally, but only diffusely without radiation. The patient has good rotational motion of the lumbar spine without difficulty. EXTREMITIES: Lower extremities show deep tendon reflexes 1+ in the patellar and tendo calcaneus tendons. Motor exam is strong with approximately 4 on a scale of 5 on the left with dorsiflexion and extension and 5/5 on the right. Peripheral pulses are 1+. No peripheral edema is noted bilaterally. Options were discussed with the patient. The patient's old chart was reviewed as her current medication regimen updated. Current review of systems updated today as well. We will proceed with a third lumbar epidural steroid injection today with fluoroscopic guidance. Risks were again discussed including but not limited to bleeding, infection, possibility of epidural hematoma, subsequent neurological compromise, dural puncture, headaches, spinal cord and/or nerve damage, side effects of steroid medication and poor results regarding pain control. The patient understands and wished to proceed. The patient will return to clinic in approximately 2 weeks for followup. She was counseled on return appointment, activity level and side effects to be aware of. DIAGNOSES: Lumbar radiculopathy with lumbar spinal stenosis, lumbar degenerative disk disease, post-lumbar laminectomy syndrome. PROCEDURE: Lumbar epidural steroid injection, translaminar approach L4-L5 level using C-arm fluoroscopic guidance under sterile prep and drape using local anesthetic. MEDICATIONS INJECTED: A total of 120 mg of Depo-Medrol plus 10 mL of preservative-free normal saline and 2 mL of contrast. CONDITION AT DISCHARGE: Stable. The patient tolerated the procedure well, had no complications. CEM STARKEY MD DR: TOMMY/lynn JOB#: [id number] / [id number]
== END | disposition home or self-care (01) ==
LOC: PNCL 11:05
PROVIDERS: ATTEND Anesthesiology
DX: M51.16 Intervertebral disc disorders with radiculopathy, lumbar region (principal); M48.061 Spinal stenosis, lumbar region without neurogenic claudication; M96.1 Postlaminectomy syndrome, not elsewhere classified; Z98.890 Other specified postprocedural states; Z88.8 Allergy status to other drugs, medicaments and biological substances
CPT/HCPCS: 62323; J1030; J1040; Q9965

== ENCOUNTER → 2019-10-19 | Outpatient (CLI) | payer MEDICARE, BC ==
[2019-06-15 08:26] VITALS: BP 162/69
[~2019-10-19] MED LIST changes: +ATOR20TA58 PO; +CYAN25008 PO; +OMEP20CA16 PO
--- NOTE | 2019-10-19 10:35 | PAIN ---
DATE OF SERVICE: 10/19/2019 PROGRESS NOTE FOR PAIN CLINIC DIAGNOSES: 1. Lumbar radiculopathy with lumbar spinal stenosis, lumbar degenerative disk disease and lumbar post-laminectomy syndrome. 2. Compression fracture T6 with thoracic radiculopathy. HISTORY OF PRESENT ILLNESS: The patient is an 83-year-old female who returns for followup status post both thoracic and lumbar epidural steroid injections, most recently a lumbar epidural steroid injection was 06/08/2019, patient did very well with about 50% improvement overall. The patient is having some pain in the upper back as well, but her low back is becoming more noticeable, and especially into the left leg and hip with radiation in the posterior gluteus, posterolateral thigh, lateral anterior thigh, worse with walking, standing, changing positions, especially getting up from bed. The patient reports it generally does not awaken her from sleep at night, better with sitting or lying down. Rates the pain as an 8 on a scale of 10 at its worst over the past week, 7 on average, 6 at its least and is a 6 today. The patient reports it is on and off in intensity, but it is of aching quality in the back and the left leg and hip. The patient reports no new motor or sensory deficits, no new bowel or bladder incontinence or other complaints. PHYSICAL EXAMINATION: VITAL SIGNS: The patient's blood pressure is 138/65, pulse 75, respirations 16, temperature 98.2 degrees Fahrenheit, weight is 110 pounds. GENERAL: The patient is awake, alert, oriented, appropriate, very pleasant demeanor. HEENT: Shows normocephalic, atraumatic. Extraocular movements are intact and symmetrical. Oral cavity shows mucous membranes moist and pink. Dentition is intact. NECK: Shows anterior throat supple without palpable lymphadenopathy noted. Swallow reflex symmetrical. CHEST: Shows normal on inspection. Breath sounds clear bilaterally. HEART: Shows S1, S2 clear. No murmurs auscultated. ABDOMEN: Soft, nontender, nondistended. No palpable organomegaly is noted. No rebound or guarding demonstrated. BACK: Shows spine grossly in the midline. Slight exaggeration of thoracic kyphosis and minor flattening of lumbar lordotic curvature. Lumbar paraspinous muscle shows symmetrical on inspection, on palpation shows some moderate tenderness throughout the upper, middle and lower distribution of paraspinous muscles bilaterally, slightly more on the left than the right, but without atrophy, hypertrophy or without trigger points. The patient has good rotational motion of lumbar spine, both laterally as well as extension and flexion without difficulty. EXTREMITIES: Lower extremities show deep tendon reflexes 1+ in the patellar and tendo calcaneus tendons are equal. Motor exam is approximately 4 on a scale of 5 on the left with dorsiflexion, extension and 5/5 on the right. Peripheral pulses are 1+ posterior tibia. No peripheral edema bilaterally. Options were discussed with the patient. The patient's old chart was reviewed as her current medication regimen updated. Current review of systems updated today as well. We will proceed with a lumbar epidural steroid injection today, the first in this series with fluoroscopic guidance. Risks were discussed including but not limited to bleeding, infection, possibility of epidural hematoma, subsequent neurological compromise, dural puncture, headaches, spinal cord and/or nerve damage, side effects of steroid medication and poor results regarding pain control. The patient understands and wished to proceed. The patient will return to clinic in approximately 2 weeks for followup. She was counseled on return appointment, activity level and side effects to be aware of. DIAGNOSES: Lumbar radiculopathy with lumbar degenerative disk disease and lumbar spinal stenosis, lumbar post-laminectomy syndrome. PROCEDURE: Lumbar epidural steroid injection, translaminar approach at the L4-L5 level using C-arm fluoroscopic guidance under sterile prep and drape using local anesthetic. MEDICATION INJECTED: A total of 120 mg Depo-Medrol plus 10 mL of preservative-free normal saline and 2 mL of contrast. CONDITION AT DISCHARGE: Stable. The patient tolerated the procedure well, had no complications. CEM STARKEY MD DR: TOMMY/lynn JOB#: [id number] / [id number]
== END ==
LOC: PNCL 09:23
PROVIDERS: ATTEND Anesthesiology
DX: M51.16 Intervertebral disc disorders with radiculopathy, lumbar region (principal); M48.061 Spinal stenosis, lumbar region without neurogenic claudication; M96.1 Postlaminectomy syndrome, not elsewhere classified
CPT/HCPCS: 62323; J1030; J1040; Q9965

== ENCOUNTER → 2019-11-02 | Outpatient (CLI) | payer MEDICARE, BC ==
[2019-06-15 08:26] VITALS: BP 162/69
[~2019-11-02] MED LIST changes: +DENO60DI SQ
--- NOTE | 2019-11-02 18:02 | PAIN ---
DATE OF SERVICE: 11/02/2019 PROGRESS NOTE FOR PAIN CLINIC DIAGNOSES: 1. Lumbar radiculopathy with lumbar degenerative disk disease and lumbar spinal stenosis and post-lumbar laminectomy syndrome. 2. Compression fracture T6 with thoracic radiculopathy on the right. HISTORY OF PRESENT ILLNESS: The patient is an 83-year-old female who returns for followup status post lumbar epidural steroid injection x 1. The patient reports she did quite well after the injection, but a few days later had a Prolia injection in her arm, which seemed to bring the pain back in her especially on her upper back and mid back and right side. The patient reports that her chief complaint today is upper mid back pain and right radiating pain. The patient reports it is on and off in intensity, but it is aching and dull, sharp, shooting at times. The patient reports it is 7 on a scale of 10 at its worse over the past week, 6 on average, 5 at its least and is a 6 today. The patient reports it is worse with walking. Initially, she was doing much better with distance walking and doing household activities. The patient reports it generally not awaken her from sleep at night neither the mid back or low back. The patient reports no new motor or sensory deficits, no new bowel or bladder incontinence. PHYSICAL EXAMINATION: VITAL SIGNS: The patient's blood pressure 140/79, pulse 80, respirations 16, temperature 98.1 degrees Fahrenheit, weight is 109 pounds. GENERAL: The patient is awake, alert, oriented, appropriate, very pleasant demeanor. HEENT: Shows normocephalic, atraumatic. Extraocular movements are intact and symmetrical. Oral cavity: Mucous membranes moist and pink. Dentition is intact. NECK: Shows anterior throat supple, full rotational motion of cervical spine, both laterally as well as extension and flexion without difficulty. CHEST: Shows normal on inspection. Breath sounds are clear bilaterally. No rales, rhonchi or wheezes auscultated. HEART: Shows S1, S2 clear. No murmurs auscultated. ABDOMEN: Soft, nontender, nondistended. BACK: Shows spine grossly in the midline, slight exaggerated thoracic kyphosis and minor flattening of lumbar lordotic curvature with well-healed surgical scar noted. Thoracic paraspinous muscle shows symmetrical on inspection, with palpation shows some moderate tenderness, more on the right than the left with radiation mildly under the right scapula, but without specific trigger points or radiation. The patient has good rotational motion of the thoracic spine with increased extension, flexion, right and left lateral rotation without increasing pain. Lumbar spine shows some moderate tenderness diffusely in the low lumbar distribution bilaterally, but only diffusely without radiation. The patient shows good rotational motion of lumbar spine, both laterally as well as extension and flexion without difficulty. EXTREMITIES: Lower extremities showed deep tendon reflexes 1+ in the patellar and tendo calcaneus tendons. Motor exam is 4 on a scale of 5, but symmetrical bilaterally. PLAN: Options were discussed with the patient. The patient's old chart was reviewed as her current medication regimen updated. Current review of systems updated today as well. We will proceed with a thoracic epidural steroid injection today with fluoroscopic guidance as she is having some thoracic radicular pain and with compression fracture T6 history. We will plan on thoracic epidural. Risks were discussed including but not limited to bleeding, infection, possibility of epidural hematoma, subsequent neurological compromise, dural puncture, headaches, spinal cord and/or nerve damage, side effects of steroid medication and poor results regarding pain control. The patient understands and wished to proceed. The patient will return to clinic in approximately 2 weeks for followup. She was counseled on return appointment, activity level and side effects to be aware of. DIAGNOSES: Thoracic radiculopathy with thoracic T6 compression fracture. PROCEDURE: Thoracic epidural steroid injection, translaminar approach T6-T7 level using C-arm fluoroscopic guidance under sterile prep and drape using local anesthetic. MEDICATION INJECTED: A total of 120 mg Depo-Medrol plus 10 mL of preservative-free normal saline and 2 mL of contrast. CONDITION AT DISCHARGE: Stable. The patient tolerated procedure well, had no complications. CEM STARKEY MD DR: TOMMY/lynn JOB#: [id number] / [id number]
== END ==
LOC: PNCL 10:00
PROVIDERS: ATTEND Anesthesiology
DX: M50.123 Cervical disc disorder at C6-C7 level with radiculopathy (principal); M51.16 Intervertebral disc disorders with radiculopathy, lumbar region; M48.061 Spinal stenosis, lumbar region without neurogenic claudication; M96.1 Postlaminectomy syndrome, not elsewhere classified
CPT/HCPCS: 62321; J1030; J1040; Q9965

== ENCOUNTER → 2020-02-01 | Outpatient (CLI) | payer MEDICARE, BC ==
[2019-06-15 08:26] VITALS: BP 162/69
--- NOTE | 2020-02-01 11:21 | PDOC ---
Progress Note - Pain Clinic Date of Service: DOS: DATE: 02/01/20 TIME: 11:15 Diagnosis: Dx: Lumbar radiculopathy with lumbar degenerative disc disease lumbar spinal stenosis and post lumbar laminectomy syndrome Compression fracture T6 History or Present Illness: HPI: 84-year-old female returns follow-up status post thoracic epidural to injection x1 and lumbar epidural straight injection x1. Patient reports about 75% improvement after the lumbar epidural steroid injection but the thoracic was not as significant in decreasing pain. Patient reports still pain the low back now into the left lower extremity lateral hip thigh posterior gluteus posterior lateral thigh and anterior thigh as well. Patient which is a 7 on scale 10 is worse with the past week 7 on average and a 4 to sleep is a 7 today. Patient reports increased difficulty with balance as well as weakness with walking and standing. Patient scribes the pain in the back and leg is sharp into the leg with radiating pain also dull in the low back itself worse with walking standing changing positions becoming more difficult patient is using her walker and has that with her today. Patient ports better with sitting or laying down she has not been very active because of this but does not awaken her from sleep as well. Patient reports no new motor or sensory deficits no bowel or bladder incontinence or other complaints. Physical Exam: VS: Blood pressure is 148/75 pulse 87 respirations 18 temperature 98.4 F height is 4 foot 11 inches weight is 110 pounds PE: PHYSICAL EXAMINATION: GENERAL: The patient is awake, alert, oriented, appropriate, very pleasant demeanor HEENT: Shows normocephalic, atraumatic. Extraocular movements are intact and symmetrical. Oral cavity: Mucous membranes moist and pink. Dentition is intact. NECK: Shows anterior throat supple without palpable lymphadenopathy noted. Swallow reflex symmetrical. CHEST: Shows normal on inspection. Breath sounds are clear bilaterally, no rales rhonchi or wheezes auscultated. HEART: Shows S1, S2 clear. No murmurs auscultated. ABDOMEN: Soft, nontender, nondistended. No palpable organomegaly is noted. No rebound or guarding demonstrated. BACK: Shows spine grossly in the midline. Normal-appearing cervical lordotic curvature. There is increased thoracic kyphosis, some minor flattening of the lumbar lordotic curvature with well-healed midline surgical scar present. Lumbar paraspinous muscles show symmetrical on inspection, on palpation shows some moderate tenderness diffusely throughout the upper, middle and lower distribution of the paraspinous muscles bilaterally and also into the lower thoracic paraspinous musculature, firm and tender, but without specific trigger points, without radiation of pain. The patient has good rotational motion of the lumbar spine, both laterally as well as extension and flexion without significant difficulty. No tenderness over the spinous processes, sacrum or sacroiliac regions. EXTREMITIES: Lower extremities show deep tendon reflexes 1+ in the patellar and tendo calcaneus tendons. Motor exam is 4 on a scale of 5 with right dorsiflexion, extension, quadriceps and hamstring flexion and 4/5 on the left. Peripheral pulses are 1+ posterior tibial. No peripheral edema is noted bilaterally. Lower extremities are warm and dry to touch, equal in color and appearance. The patient is able to stand but needs significant assistance getting up from seated position is using the arms of the chair to support herself is unstable on her feet has a shuffling gait and depends on her walker significantly to ambulate. SKIN: Shows warm and dry, good turgor. No edema. No sores, rashes or bruising throughout. Procedure: Procedure: Options were discussed with the patient. Patient's old chart was reviewed as her current medication regimen updated current review of systems updated today as well. We will proceed with third in the series lumbar epidural steroid injection today with fluoroscopic guidance. Risks were discussed including but not limited to: Bleeding, infection, possibility of epidural hematoma and subsequent neurological compromise, dural puncture, headaches, spinal cord and/or nerve damage, side effects of steroid medication, and poor results regarding pain control. Patient understands wished to proceed. Also discussed with patient's daughter who accompanied her visit today some physical therapy for reconditioning strengthening stretching exercises with back and lower extremities also coordination and balance maneuvers. Patient would like to pursue this we will see if we can arrange for physical therapy to make in-home visits for the patient as well. Medication Injected: Med Injected: Procedure is lumbar epidural steroid injection under local anesthetic using sterile prep and drape at the L4-5 level using C-arm fluoroscopic guidance in both AP and lateral views medications injected is 120 mg Depo-Medrol + 10 mL preservative-free normal saline and 2 mL contrast- condition at discharge is stable patient tolerated procedure well had no complications. Condition at Discharge: Condition at Discharge: Condition at discharge is stable patient tolerated the procedure well had no complications. CEM STARKEY MD Feb 01, 2020 11:21
== END | disposition home or self-care (01) ==
LOC: PNCL 10:31
PROVIDERS: ATTEND Anesthesiology
DX: M51.16 Intervertebral disc disorders with radiculopathy, lumbar region (principal); M48.061 Spinal stenosis, lumbar region without neurogenic claudication; M84.48XA Pathological fracture, other site, initial encounter for fracture; I11.0 Hypertensive heart disease with heart failure; I50.9 Heart failure, unspecified; K21.9 Gastro-esophageal reflux disease without esophagitis; E78.5 Hyperlipidemia, unspecified; Z88.8 Allergy status to other drugs, medicaments and biological substances; Z79.899 Other long term (current) drug therapy
CPT/HCPCS: 62323; J1030; J1040; Q9965

== ENCOUNTER → 2020-05-09 | Outpatient (CLI) | payer MEDICARE, BC ==
[2019-06-15 08:26] VITALS: BP 162/69
[~2020-05-09] MED LIST changes: -IOHEXOL 180 MG/ML 10 ML VIAL. ONE; -methylPREDNISolone ACETATE 40 MG/ML VIAL. ONE; -methylPREDNISolone ACETATE 80 MG/ML VIAL. ONE
--- NOTE | 2020-05-09 16:13 | CARD ---
MR#: [id number] Date of Study: 05/09/2020 Ordering Physician: SHERIE PALMER, Referring Physician: SHERIE PALMER, Tech: Fela Gutierrezjustice APPROVED REPORT EXAM: Two-dimensional and M-mode echocardiogram with Doppler and color Doppler. Other Information Quality : GoodHR: 84bpm INDICATION Congestive Heart Failure RISK FACTORS Hypertension Hyperlipidemia 2D DIMENSIONS RVDd2.9 (2.9-3.5cm)Left Atrium(2D)3.4 (1.6-4.0cm) IVSd0.9 (0.7-1.1cm)Aortic Root(2D)2.8 (2.0-3.7cm) LVDd4.9 (3.9-5.9cm)LVOT Diameter2.2 (1.8-2.4cm) PWd0.9 (0.7-1.1cm)LVDs2.7 (2.5-4.0cm) FS (%) 45.1 %SV84.7 ml LVEF(%)76.3 (>50%) Aortic Valve AoV Peak Prabhu.117.1cm/sAoV VTI25.1cm AO Peak GR.5.5mmHgLVOT Peak Prabhu.84.6cm/s LVOT VTI 18.02cmAO Mean GR.3mmHg AMADEO (VMAX)2.11qc0RTS (VTI)2.70cm2 AI P 1/2 Utlf393nc Mitral Valve MV E Qfryzfsn34.4cm/sMV DECEL QOJT425ew MV A Fwsnpuor17.7cm/sMV E Mean Gr.2mmHg MV HET09doL/A Ratio0.7 MVA (PHT)5.23cm2 TDI E/Lateral E'6.8E/Medial E'9.2 Pulmonary Valve PV Peak Orcequmo44.9cm/sPV Peak Grad.3mmHg Tricuspid Valve TR P. Kmtjwysw523cg/sRAP ELKJKYKR6zeSx TR Peak Gr.88rgToGMSJ17ltKj Pulmonary Vein S1 Ymokejbs49.4cm/sD2 Njwrmase83.5cm/s PVa lgchkyfb162xwml LEFT VENTRICLE The left ventricle is normal size. There is normal left ventricular wall thickness. The left ventricu lar systolic function is normal. The Ejection Fraction is 65%. There is normal LV segmental wall curtis on. Transmitral Doppler flow pattern is Grade I-abnormal relaxation pattern. RIGHT VENTRICLE The right ventricle is normal size. There is normal right ventricular wall thickness. The right ventr icular systolic function is normal. ATRIA The left atrium size is normal. The right atrium size is normal. The interatrial septum is intact wit h no evidence for an atrial septal defect or patent foramen ovale as noted on 2-D or Doppler imaging. AORTIC VALVE The aortic valve is thickened but opens well. Doppler and Color Flow revealed mild aortic regurgitati on. There is no significant aortic valvular stenosis. Calculated aortic valve area is 2.58 cm2 with m aximum pressure gradient of 7 mmHg and mean pressure gradient of 4 mmHg. MITRAL VALVE The mitral valve is normal in structure and function. There is no evidence of mitral valve prolapse. There is no mitral valve stenosis. Doppler and Color-flow revealed trace mitral regurgitation. TRICUSPID VALVE The tricuspid valve is normal in structure and function. Doppler and Color Flow revealed trace tricus pid regurgitation with an estimated PAP of 32 mmHg. There is no tricuspid valve stenosis. PULMONIC VALVE The pulmonic valve is not well visualized. Doppler and Color Flow revealed trace pulmonic valvular re gurgitation. GREAT VESSELS The aortic root is normal in size. The ascending aorta is normal in size. The IVC is normal in size a nd collapses >50% with inspiration. PERICARDIAL EFFUSION There is no evidence of significant pericardial effusion. Critical Notification Critical Value: No <Conclusion> The left ventricular systolic function is normal. The Ejection Fraction is 65%. There is normal LV segmental wall motion. Transmitral Doppler flow pattern is Grade I-abnormal relaxation pattern. Mild aortic regurgitation. Trace mitral regurgitation. Trace tricuspid regurgitation with an estimated PAP of 32 mmHg. There is no evidence of significant pericardial effusion. Signed by : Sherie Palmer, Electronically Approved : 05/09/2020 16:13:04
== END ==
LOC: ECHO 12:35
PROVIDERS: ATTEND Internal Medicine Cardiovascular Disease
DX: I35.1 Nonrheumatic aortic (valve) insufficiency (principal); I50.32 Chronic diastolic (congestive) heart failure
CPT/HCPCS: 93306

== ENCOUNTER → 2020-06-22 | Outpatient (CLI) | payer MEDICARE, BC ==
[2019-06-15 08:26] VITALS: BP 162/69
[~2020-06-22] MED LIST changes: +LISI10TA16 PO; -LISI10TA2 PO
--- NOTE | 2020-06-22 16:05 | RAD ---
EXAM: AP pelvis, lateral view right hip DATE: 06/22/2020 2:31 PM INDICATION: Reason: rt groin pain after twisting motion x2 days ago / Spl. Instructions: / History: COMPARISON: No Prior FINDINGS: Moderate to large volume colonic stool content limits evaluation of the sacrum and portions of the pe lvis. N. SI joint and symphysis pubis degenerative changes are seen. Old/healed left superior inferio r pubic rami fractures are seen. Vascular calcifications are noted. Spinal fusion hardware partially profiled. IMPRESSION: 1. No acute fracture or dislocation. If there is persistent clinical concern for fracture, MRI or CT is recommended. 2. Old/healed left superior and inferior pubic rami fractures are seen. Electronically signed by: Nahun Whaley MD (06/22/2020 4:02 PM) [id number]
== END ==
LOC: RAD 14:14
PROVIDERS: ATTEND Family Medicine
DX: R10.31 Right lower quadrant pain (principal)
CPT/HCPCS: 73501

== ENCOUNTER → 2020-08-17 | Outpatient (CLI) | payer MEDICARE, BC ==
[2019-06-15 08:26] VITALS: BP 162/69
--- NOTE | 2020-08-18 09:36 | RAD ---
EXAM: XR HAND_LEFT 3 VIEWS 08/17/2020 2:51 PM CLINICAL INDICATION: Left hand pain, unable to move fingers due to arthritis COMPARISON: None TECHNIQUE: PA, oblique, and lateral views of the left hand FINDINGS: The bones are diffusely demineralized. There are scattered cysts or erosions in the carpus and base of the first metacarpal. Severe joint space narrowing and subchondral sclerosis of the firs t and fifth CMC joints, and triscaphe the joint. There is severe joint space narrowing of the second MCP joint. Mild to moderate joint space narrowing of the second through fourth distal interphalangeal joints. Small osteophytes at the fifth DIP joint. Possible erosion at the ulnar styloid. No acute fr acture. No focal soft tissue abnormality. IMPRESSION: 1. Multifocal degenerative joint disease, severe at the first and fifth CMC joints, triscaphe the grey nt, and second MCP joint. 2. Possible erosions in the ulnar styloid and carpus. 3. Osteopenia. Electronically signed by: Negin Amaya MD (08/18/2020 9:34 AM) [id number]
== END ==
LOC: RAD 14:40
PROVIDERS: ATTEND Family Medicine
DX: M19.042 Primary osteoarthritis, left hand (principal); M18.9 Osteoarthritis of first carpometacarpal joint, unspecified; M85.842 Other specified disorders of bone density and structure, left hand; M25.742 Osteophyte, left hand
CPT/HCPCS: 73130

== ENCOUNTER → 2021-03-06 | Outpatient (CLI) | payer MEDICARE, BC ==
[2019-06-15 08:26] VITALS: BP 162/69
[~2021-03-06] MED LIST changes: +ACET500T68 PO; +CEPH500C PO; +DOXY100T PO
--- NOTE | 2021-03-06 16:40 | RAD ---
EXAM: Lumbar spine, 3 views. HISTORY: Pain. COMPARISON: None. FINDINGS: 3 views of the lumbar spine are obtained. There is mild lumbar dextroscoliosis centered at L3. There is 13 mm grade 2 anterolisthesis of L5 on S1. There is right lateral fusion instrumentation at this level. There is lucency surrounding the right L5 transpedicular screw likely due to loosenin g. There is methylmethacrylate adjacent to the screw within the right sacrum. There is 7 mm grade 1 a nterolisthesis of L4 and L5, 3 mm grade 1 anterolisthesis of L2 on L3, and 9 mm retrolisthesis of L3 on L4. There is multilevel endplate remodeling with disc space narrowing, predominantly at L2-L3 and L3-L4. There is multilevel facet arthropathy, predominantly at the lumbosacral junction. IMPRESSION: 1. Right posterior instrumented fusion at L5-S1. There is lucency surrounding the right L5 transverse screws suggesting a component of loosening. There is grade 2 anterolisthesis at this level. 2. Mild to moderate listhesis at the remainder of the aforementioned lumbar levels and degenerative c hange primarily at L2-L3 and L3-L4. 3. No acute osseous finding. Electronically signed by: Nely Escamilla MD (03/06/2021 4:37 PM) [id number]
== END ==
LOC: RAD 15:53
PROVIDERS: ATTEND Family Medicine
DX: M47.817 Spondylosis without myelopathy or radiculopathy, lumbosacral region (principal); M48.061 Spinal stenosis, lumbar region without neurogenic claudication; M43.17 Spondylolisthesis, lumbosacral region; M41.86 Other forms of scoliosis, lumbar region
CPT/HCPCS: 72100

== ENCOUNTER 2021-03-10 16:18 | Inpatient (IN) | payer MEDICARE, BC ==
[~2021-03-10] VITALS: Ht 149.9 cm; Wt 44.2 kg
[~2021-03-10 16:18] MED LIST changes: -ACET500T68 PO; -CEPH500C PO; -DOXY100T PO
--- NOTE | 2021-03-10 17:06 | EKG ---
[facility] [address] [place] [address] Test Date: 2021-03-10 Test Time: 16:29:09 Pat Name: JUDY SEBASTIAN Department: Room: Gender: F B Operator: : [id number] Requested By: RADHA BOCANEGRA Order Number: [id number] Reading MD: Lionel Escobar Measurements Intervals [place] Rate: 96 P: 56 CT: 154 QRS: 28 QRSD: 92 T: 60 QT: 324 QTc: 410 Interpretive Statements SINUS RHYTHM LEFT ATRIAL ABNORMALITY ABNORMAL ECG Electronically Signed On 03-10-2021 20:53:01 CDT by Lionel Escobar
[2021-03-10 17:19] LABS: BASO % 0 % (0-3); EOS % 1 % (0-3); HEMATOCRIT 31.5 % (36.0-47.0); HEMOGLOBIN 10.8 g/dL (12.0-15.5); LYMPH # 0.7 x10^3/uL (1.0-4.8); LYMPH % 10 % (24-48); MEAN CORPUSCULAR HEMOGLOBIN 35 pg (25-35); MEAN CORPUSCULAR HGB CONC 34 g/dL (31-37); MEAN CORPUSCULAR VOLUME 101 fL (79-100); MONO # 0.5 x10^3/uL (0.0-1.1); MONO % 8 % (0-9); NEUT # 5.9 x10^3/uL (1.8-7.7); NEUT % 82 % (31-73); PLATELET COUNT 242 x10^3/uL (140-400); RED BLOOD COUNT 3.11 x10^6/uL (3.50-5.40); RED CELL DISTRIBUTION WIDTH 13.8 % (11.5-14.5); WHITE BLOOD COUNT 7.2 x10^3/uL (4.0-11.0)
[2021-03-10 17:25] LABS: CALCIUM 8.8 mg/dL (8.5-10.1); GFR 52.7
[2021-03-10 17:30] LABS: ALBUMIN 3.9 g/dL (3.4-5.0); ALBUMIN/GLOBULIN RATIO 1.3 (1.0-1.7); TOTAL BILIRUBIN 0.2 mg/dL (0.2-1.0); TOTAL PROTEIN 6.9 g/dL (6.4-8.2)
--- NOTE | 2021-03-10 17:45 | RAD ---
XR CHEST 1V Clinical History: Reason: weakness / Spl. Instructions: / History: Technique: AP view of the chest was obtained at 03/10/2021 5:14 PM. Comparison: June 11, 2019. Findings: The cardiomediastinal silhouette is normal. The pulmonary vasculature is normal. The lungs and pleura l margins are clear. Impression: No evidence of an acute cardiopulmonary process. Electronically signed by: Patricio Hutchinson III, MD (03/10/2021 5:42 PM) [facility]
[2021-03-10] MEDS ORDERED: IV NORMAL SALINE 500ML BAG 500 ML IV ONE (18:00)
--- NOTE | 2021-03-10 18:05 | PHYS DOC ---
Past Medical History Past Medical History: CHF, GERD, Hypertension, UTI, Other Additional Past Medical Histor: osteoporosis, chronic back pain, DAILY ASA, MURMUR (RADHA BOCANEGRA) Past Surgical History: Hysterectomy, Other Additional Past Surgical Histo: back sx x 2, R breast lump removed (RADHA BOCANEGRA) Smoking Status: Never Smoker Alcohol Use: None Drug Use: None (RADHA BOCANEGRA) General Adult EDM: Chief Complaint: FATIGUE HPI: HPI: Patient is a 85 year old female who presents with 3-day history of weakness. Patient reports associated intermittent nausea, but denies all other symptoms. She reports history of hypertension, congestive heart failure, 1 TIA last year, and chronic back pain. Patient states in the past year, she has fallen 1 time. She lives at home with her daughter. Patient received COVID vaccination in July. Patient denies dizziness, headache, fever, chills, chest pain, palp itations, shortness of breath, cough, abdominal pain, N/V/D, constipation or straining, bloody stools. Daughter is at bedside and agrees with stated complaints. (RADHA BOCANEGRA) Review of Systems: Review of Systems: Constitutional: See HPI Eyes: Denies change in visual acuity. HENT: Denies nasal congestion or sore throat. Respiratory: See HPI Cardiovascular: See HPI GI: See HPI : Denies dysuria or hematuria. Musculoskeletal: See HPI Integument: Denies rash or other skin lesions. Neurologic: Denies headache, focal weakness or sensory changes. (RADHA BOCANEGRA) Heart Score: C/O Chest Pain: No (RADHA BOCANEGRA) Current Medications: Current Medications Medications (Trade) Dose Ordered Sig/Mason Start Time Stop Time Status Last Admin Dose Admin Sodium Chloride 500 ml @ 500 mls/hr 1X ONCE 03/10/21 18:00 03/10/21 18:59 (RADHA BOCANEGRA) Allergies: Allergies: Allergies Coded Allergies Type Severity Reaction Last Updated Verified celecoxib Allergy Intermediate 12/14/17 Yes (RADHA BOCANEGRA) Physical Exam: PE: Constitutional: Pleasant, thin, no acute distress, non-toxic appearance. HENT: Normocephalic, atraumatic, bilateral external ears normal, oropharynx moist, no oral exudates, nose normal. Eyes: PERRLA, EOMI, conjunctiva normal, no discharge. Neck: Normal range of motion, no tenderness, supple. Cardiovascular: Heart rate regular rhythm. Lungs & Thorax: Bilateral breath sounds clear to auscultation. Abdomen: Bowel sounds normal, soft, no tenderness, no masses, no pulsatile masses. Skin: Left lower extremity erythematous on anterior aspect just distal to the knee extending down to the ankle. Skin otherwise warm, dry, no erythema, no rash. Back: No tenderness, no CVA tenderness. Extremities: Bilateral lower extremity edema appreciated distal to the knee L>R, left lower extremity tender on anterior aspect. Remedies otherwise no cyanosis, no clubbing, ROM intacy. Neurologic: Alert and oriented x3, normal motor function, normal sensory function, no focal deficits noted. (RADHA BOCANEGRA) Current Patient Data: Labs: Laboratory Tests Test 03/10/21 17:02 White Blood Count 7.2 x10^3/uL (4.0-11.0) Red Blood Count 3.11 x10^6/uL (3.50-5.40) L Hemoglobin 10.8 g/dL (12.0-15.5) L Hematocrit 31.5 % (36.0-47.0) L Mean Corpuscular Volume 101 fL (79-100) H Mean Corpuscular Hemoglobin 35 pg (25-35) Mean Corpuscular Hemoglobin Concent 34 g/dL (31-37) Red Cell Distribution Width 13.8 % (11.5-14.5) Platelet Count 242 x10^3/uL (140-400) Neutrophils (%) (Auto) 82 % (31-73) H Lymphocytes (%) (Auto) 10 % (24-48) L Monocytes (%) (Auto) 8 % (0-9) Eosinophils (%) (Auto) 1 % (0-3) Basophils (%) (Auto) 0 % (0-3) Neutrophils # (Auto) 5.9 x10^3/uL (1.8-7.7) Lymphocytes # (Auto) 0.7 x10^3/uL (1.0-4.8) L Monocytes # (Auto) 0.5 x10^3/uL (0.0-1.1) Eosinophils # (Auto) 0.0 x10^3/uL (0.0-0.7) Basophils # (Auto) 0.0 x10^3/uL (0.0-0.2) Sodium Level 127 mmol/L (136-145) L Potassium Level 5.0 mmol/L (3.5-5.1) Chloride Level 94 mmol/L (98-107) L Carbon Dioxide Level 27 mmol/L (21-32) Anion Gap 6 (6-14) Blood Urea Nitrogen 22 mg/dL (7-20) H Creatinine 1.0 mg/dL (0.6-1.0) Estimated GFR (Cockcroft-Gault) 52.7 BUN/Creatinine Ratio 22 (6-20) H Glucose Level 113 mg/dL (70-99) H Calcium Level 8.8 mg/dL (8.5-10.1) Total Bilirubin 0.2 mg/dL (0.2-1.0) Aspartate Amino Transferase (AST) 19 U/L (15-37) Alanine Aminotransferase (ALT) 22 U/L (14-59) Alkaline Phosphatase 67 U/L (46-116) Total Protein 6.9 g/dL (6.4-8.2) Albumin 3.9 g/dL (3.4-5.0) Albumin/Globulin Ratio 1.3 (1.0-1.7) Lipase 272 U/L (73-393) Laboratory Tests 03/10/21 17:02 Laboratory Tests 03/10/21 17:02 Vital Signs: Vital Signs Date Time Temp Pulse Resp B/P (MAP) Pulse Ox O2 Delivery O2 Flow Rate FiO2 03/10/21 16:45 98.0 99 16 183/79 (113) 97 Room Air 98.0 (RADHA BOCANEGRA) EKG: EKG: EKG Interpreted by Dr. Santoro at 1638: Regular rate and rhythm 96 bpm with possible PVC. No concerning ST-T wave changes. Regular QR interval. (RADHA BOCANEGRA) Radiology/Procedures: Radiology/Procedures: PROCEDURE: PORTABLE CHEST 1V XR CHEST 1V Clinical History: Reason: weakness / Spl. Instructions: / History: Technique: AP view of the chest was obtained at 03/10/2021 5:14 PM. Comparison: June 11, 2019. Findings: The cardiomediastinal silhouette is normal. The pulmonary vasculature is normal. The lungs and pleural margins are clear. Impression: No evidence of an acute cardiopulmonary process. Electronically signed by: Patricio Hutchinson III, MD (03/10/2021 5:42 PM) [facility] (RADHA BOCANEGRA) Course & Med Decision Making: Course & Med Decision Making Pertinent Labs and Imaging studies reviewed. (See chart for details) Patient is a very pleasant 85-year-old presenting with isolated weakness. Work- up today will include EKG, chest x-ray, lab work and urinalysis. Lab work is reassuring. Patient care transferred to [facility] pending urinalysis. (RADHA BOCANEGRA) Course & Med Decision Making Patient states she is unable to ambulate at home and family states they are unable to take care of her. Patient does have cellulitis that has spread over the last week that is very warm up over the left anterior blackman. Patient's s odium is 127. No urinary tract infection. Patient and family using shared decision making states the they would like to be admitted to the hospital as her family cannot help her get up and walk. (RAYMUNDO BRASHER APRN) Dragon Disclaimer: Dragon Disclaimer: This electronic medical record was generated, in whole or in part, using a voice recognition dictation system. (RADHA BOCANEGRA) Departure Departure Impression: Primary Impression: Cellulitis of left anterior lower leg Additional Impressions: Weakness Unable to ambulate Disposition: ADMITTED INPATIENT Admitting Physician: GISELLE (RAYMUNDO BRASHER APRN) Condition: STABLE Referrals: EMELYN MARTINES MD (PCP) RADHA BOCANEGRA Mar 10, 2021 18:05 RAYMUNDO BRASHER APRN Mar 10, 2021 19:31
[2021-03-10] MEDS ORDERED: CEPH500C PO (18:55)
[2021-03-10 19:17] LABS: BILIRUBIN,URINE NEGATIVE (NEG); CLARITY,URINE CLEAR; COLOR,URINE YELLOW; NITRITE,URINE NEGATIVE (NEG); PH,URINE 7.5 (<5.0-8.0); PROTEIN,URINE NEGATIVE (NEG-TRACE); UROBILINOGEN,URINE 0.2 mg/dL (0.2 mg/dL)
[2021-03-10 19:24] LABS: BACTERIA,URINE 0 /HPF (0-FEW); RBC,URINE 0 /HPF (0-2); WBC,URINE 0 /HPF (0-4)
--- NOTE | 2021-03-10 20:26 | RAD ---
Two-view right tibia-fibula dated 03/10/2021. No comparison available. Clinical data indication: Pain. FINDINGS: 2 views left tibia fibula show normal bony alignment. No displaced fracture. There is diffuse soft ti ssue swelling. Minimal hypertrophic changes at the knee joint. No apparent knee joint effusion. No pe riostitis or bone destruction. Vascular calcinosis. Degenerative changes at the midfoot. IMPRESSION: 1. No acute bony abnormality. 2. Diffuse soft tissue swelling. Electronically signed by: Sudeep Low MD (03/10/2021 8:24 PM) [facility]
[2021-03-10] MEDS: ACETAMINOPHEN 325 MG TABLET. PO PRN (20:59)
[2021-03-10] MEDS ORDERED: cefTRIAXone IV Push 1 GM VIAL. IVP ONE (21:00)
[2021-03-11] MEDS ORDERED: ONDANSETRON PF 4 MG/2 ML VIAL. IVP ONE (03:30)
[2021-03-11] MEDS ORDERED: MORPHINE SULFATE 2 MG/ML INJ. IVP ONE ×2 (03:30→08:00)
[2021-03-11] MEDS ORDERED: ZOLPIDEM 5 MG TABLET. PO PRN (08:30)
[2021-03-11] MEDS ORDERED: PROCHLORPERAZINE 10 MG/2 ML VIAL. IV PRN (08:30)
[2021-03-11] MEDS ORDERED: DOCUSATE SODIUM 100 MG CAPSULE. PO PRN (08:30)
[2021-03-11] MEDS ORDERED: DEXTROSE 50% 25 GM / 50ML DISP.SYRIN. IV PRN (08:30)
[2021-03-11] MEDS ORDERED: ONDANSETRON PF 4 MG/2 ML VIAL. IVP PRN (08:30)
[2021-03-11] MEDS ORDERED: SENNOSIDES 8.6 MG TABLET PO PRN (08:30)
--- NOTE | 2021-03-11 08:31 | PDOC1 ---
History and Physical Date of Service: DOS: DATE: 03/11/21 TIME: 08:26 Chief Complaint: Chief Complain: Weakness History of Present Illness: HPI: History obtained from discussion with the ED physician and chart review 85-year-old female with past medical history of CHF diastolic stage I, GERD, hypertension, UTI, chronic back pain who comes to the ED with 3-day history of generalized weakness. Patient had some nausea as well. Denies any emesis. Patient has had 1 fall in the last year. Patient lives at home with daughter. Daughter states that the patient has not been drinking much water and appears to look dry to her. Appetite has not changed. Patient is Covid vaccinated in July. Denies fevers, headaches, fevers chills, chest pain, palpitations, shortness of breath, cough, abdominal pain or diarrhea. Past Medical/Surgical History: PMH/PSH: Past Medical History: CHF, GERD, Hypertension, UTI, osteoporosis, chronic back pain, DAILY ASA, MURMUR Past Surgical History: Hysterectomy, back sx x 2, R breast lump removed Allergies: Allergies: Coded Allergies: celecoxib (Verified Allergy, Intermediate, 12/14/17) Family History: Family History: Reviewed with no relevant findings Social History: Social History: Smoking Status: Never Smoker Alcohol Use: None Drug Use: None Current Medications: Current Medications Current Medications Sodium Chloride 500 ml @ 500 mls/hr 1X ONCE IV Last administered on 03/10/21at 17:59; Start 03/10/21 at 18:00; Stop 03/10/21 at 18:59; Status DC Acetaminophen (Tylenol) 650 mg PRN Q4HRS PRN PO FEVER > 100.3'F Last administered on 03/10/21at 20:59; Start 03/10/21 at 20:45; Stop 03/11/21 at 20:44 Ceftriaxone Sodium (Rocephin) 1 gm 1X ONCE IVP Last administered on 03/10/21at 21:30; Start 03/10/21 at 21:00; Stop 03/10/21 at 21:01; Status DC Morphine Sulfate (Morphine Sulfate) 2 mg 1X ONCE IVP Last administered on 03/11/21at 03:37; Start 03/11/21 at 03:30; Stop 03/11/21 at 03:31; Status DC Ondansetron HCl (Zofran) 4 mg 1X ONCE IVP Last administered on 03/11/21at 03:36; Start 03/11/21 at 03:30; Stop 03/11/21 at 03:31; Status DC Morphine Sulfate (Morphine Sulfate) 2 mg 1X ONCE IVP Last administered on 03/11/21at 08:04; Start 03/11/21 at 08:00; Stop 03/11/21 at 08:01; Status DC Active Scripts Active Atorvastatin Calcium 20 Mg Tablet 20 Mg PO QHS 30 Days Hydrocodone-Apap 5-325 (Hydrocodone Bit/Acetaminophen) 1 Each Tablet 1 Tab PO PRN Q4HRS PRN 7 Days Reported Prolia (Denosumab) 60 Mg/1 Ml Disp.syrin 60 Mg SQ EVERY 6 MONTHS Colestipol Hcl 1 Gm Tablet 1 Gm PO DAILY Vitamin B12 (Cyanocobalamin (Vitamin B-12)) 2,500 Mcg Tablet 1 Tab PO DAILY 30 Days Omeprazole 20 Mg Capsule.dr 1 Cap PO DAILY Gabapentin (Gabapentin) 300 Mg Capsule 300 Mg PO TID Furosemide 40 Mg Tablet 1 Tab PO DAILY Klor-Con 10 (Potassium Chloride) 10 Meq Tablet.er 1 Tab PO DAILY Aspirin 81 Mg Tab.chew 1 Tab PO DAILY Calcium 600 + D Tablet (Calcium Carbonate/Vitamin D3) 1 Each Tablet 1 Each PO DAILY Multi Vitamin Daily (Multivitamin) 1 Each Tablet 1 Each PO DAILY Lisinopril 10 Mg Tablet 10 Mg PO DAILY Tylenol (Acetaminophen) 325 Mg Tablet 1,000 Mg PO PRN Q6HRS PRN Advil (Ibuprofen) 200 Mg Tablet 200 Mg PO PRN Q4HRS PRN ROS: Review of Systems Review of System REVIEW OF SYSTEMS: GENERAL: Denies weakness SKIN: No bruising, hair changes or rashes. EYES: No blurred, double or loss of vision. NOSE AND THROAT: No history of nosebleeds, hoarseness or sore throat. HEART: No history of palpitations, chest pain or shortness of breath on exertion. LUNGS: Denies cough, hemoptysis, wheezing or shortness of breath. GASTROINTESTINAL: Denies changes in appetite, nausea, vomiting, diarrhea or constipation. GENITOURINARY: No history of frequency, urgency, hesitancy or nocturia. NEUROLOGIC: Denies history of numbness, tingling, or tremor. PSYCHIATRIC: No history of panic, anxiety or depression. ENDOCRINE: No history of heat or cold intolerance, polyuria or polydipsia. EXTREMITIES: Denies joint pain, pain on walking or stiffness. Physical Exam: Vital Signs: Vital Signs Date Time Temp Pulse Resp B/P (MAP) Pulse Ox O2 Delivery O2 Flow Rate FiO2 03/11/21 08:04 90 15 128/88 (101) 98 Room Air 03/10/21 16:45 98.0 98.0 Physcial Exam: GEN: No apparent distress. Alert and oriented HEENT: Normal cephalic, atraumatic, external auditory canals are patent EYES: Extraocular muscles are intact, pupil are equally round and reactive to light and accommodation MUSCULOSKELETAL: Well developed , well nourished, good range of motion ENDOCRINE: No thyromegaly was palpated LYMPHATICS: No cervical chain or axillary nodes were noted HEMATOPOIETIC: No bruising NECK: Supple, no JVD, no thyromegaly was noted LUNGS: Clear to auscultation in all lung almeida without rhonchi or wheezing HEART: RRR, S!, S2 present. Peripheral pulses intact, no obvious murmurs noted ABDOMEN: Soft, nontender. Positive bowel sounds, no organomegaly, normal bowel sounds EXTREMITIES: Without clubbing, cyanosis, or edema. Pedal pulses intact. Negative Homans sign NEUROLOGIC: Normal speech and tone. A&O x 3, moves all extremities, no obvious focal deficits PSYCHIATRIC: Normal affect, normal mood. Stable SKIN: No ulcerations or rashes, good skin turgor, no jaundice VASCULAR: Good capillary refill, neurovascular bundle appears to be intact Labs: Labs: Laboratory Tests Test 03/10/21 17:02 03/10/21 19:05 03/10/21 21:09 White Blood Count 7.2 x10^3/uL (4.0-11.0) Red Blood Count 3.11 x10^6/uL (3.50-5.40) Hemoglobin 10.8 g/dL (12.0-15.5) Hematocrit 31.5 % (36.0-47.0) Mean Corpuscular Volume 101 fL (79-100) Mean Corpuscular Hemoglobin 35 pg (25-35) Mean Corpuscular Hemoglobin Concent 34 g/dL (31-37) Red Cell Distribution Width 13.8 % (11.5-14.5) Platelet Count 242 x10^3/uL (140-400) Neutrophils (%) (Auto) 82 % (31-73) Lymphocytes (%) (Auto) 10 % (24-48) Monocytes (%) (Auto) 8 % (0-9) Eosinophils (%) (Auto) 1 % (0-3) Basophils (%) (Auto) 0 % (0-3) Neutrophils # (Auto) 5.9 x10^3/uL (1.8-7.7) Lymphocytes # (Auto) 0.7 x10^3/uL (1.0-4.8) Monocytes # (Auto) 0.5 x10^3/uL (0.0-1.1) Eosinophils # (Auto) 0.0 x10^3/uL (0.0-0.7) Basophils # (Auto) 0.0 x10^3/uL (0.0-0.2) Sodium Level 127 mmol/L (136-145) Potassium Level 5.0 mmol/L (3.5-5.1) Chloride Level 94 mmol/L (98-107) Carbon Dioxide Level 27 mmol/L (21-32) Anion Gap 6 (6-14) Blood Urea Nitrogen 22 mg/dL (7-20) Creatinine 1.0 mg/dL (0.6-1.0) Estimated GFR (Cockcroft-Gault) 52.7 BUN/Creatinine Ratio 22 (6-20) Glucose Level 113 mg/dL (70-99) Calcium Level 8.8 mg/dL (8.5-10.1) Total Bilirubin 0.2 mg/dL (0.2-1.0) Aspartate Amino Transf (AST/SGOT) 19 U/L (15-37) Alanine Aminotransferase (ALT/SGPT) 22 U/L (14-59) Alkaline Phosphatase 67 U/L (46-116) Total Protein 6.9 g/dL (6.4-8.2) Albumin 3.9 g/dL (3.4-5.0) Albumin/Globulin Ratio 1.3 (1.0-1.7) Lipase 272 U/L (73-393) Urine Collection Type Unknown Urine Color Yellow Urine Clarity Clear Urine pH 7.5 (<5.0-8.0) Urine Specific [place] 1.010 (1.000-1.030) Urine Protein Negative mg/dL (NEG-TRACE) Urine Glucose (UA) Negative mg/dL (NEG) Urine Ketones (Stick) Negative mg/dL (NEG) Urine Blood Negative (NEG) Urine Nitrite Negative (NEG) Urine Bilirubin Negative (NEG) Urine Urobilinogen Dipstick 0.2 mg/dL (0.2 mg/dL) Urine Leukocyte Esterase Negative (NEG) Urine RBC 0 /HPF (0-2) Urine WBC 0 /HPF (0-4) Urine Squamous Epithelial Cells Occ /LPF Urine Bacteria 0 /HPF (0-FEW) Lactic Acid Level 0.8 mmol/L (0.4-2.0) Laboratory Tests Test 03/10/21 17:02 03/10/21 19:05 03/10/21 21:09 White Blood Count 7.2 x10^3/uL (4.0-11.0) Red Blood Count 3.11 x10^6/uL (3.50-5.40) Hemoglobin 10.8 g/dL (12.0-15.5) Hematocrit 31.5 % (36.0-47.0) Mean Corpuscular Volume 101 fL (79-100) Mean Corpuscular Hemoglobin 35 pg (25-35) Mean Corpuscular Hemoglobin Concent 34 g/dL (31-37) Red Cell Distribution Width 13.8 % (11.5-14.5) Platelet Count 242 x10^3/uL (140-400) Neutrophils (%) (Auto) 82 % (31-73) Lymphocytes (%) (Auto) 10 % (24-48) Monocytes (%) (Auto) 8 % (0-9) Eosinophils (%) (Auto) 1 % (0-3) Basophils (%) (Auto) 0 % (0-3) Neutrophils # (Auto) 5.9 x10^3/uL (1.8-7.7) Lymphocytes # (Auto) 0.7 x10^3/uL (1.0-4.8) Monocytes # (Auto) 0.5 x10^3/uL (0.0-1.1) Eosinophils # (Auto) 0.0 x10^3/uL (0.0-0.7) Basophils # (Auto) 0.0 x10^3/uL (0.0-0.2) Sodium Level 127 mmol/L (136-145) Potassium Level 5.0 mmol/L (3.5-5.1) Chloride Level 94 mmol/L (98-107) Carbon Dioxide Level 27 mmol/L (21-32) Anion Gap 6 (6-14) Blood Urea Nitrogen 22 mg/dL (7-20) Creatinine 1.0 mg/dL (0.6-1.0) Estimated GFR (Cockcroft-Gault) 52.7 BUN/Creatinine Ratio 22 (6-20) Glucose Level 113 mg/dL (70-99) Calcium Level 8.8 mg/dL (8.5-10.1) Total Bilirubin 0.2 mg/dL (0.2-1.0) Aspartate Amino Transf (AST/SGOT) 19 U/L (15-37) Alanine Aminotransferase (ALT/SGPT) 22 U/L (14-59) Alkaline Phosphatase 67 U/L (46-116) Total Protein 6.9 g/dL (6.4-8.2) Albumin 3.9 g/dL (3.4-5.0) Albumin/Globulin Ratio 1.3 (1.0-1.7) Lipase 272 U/L (73-393) Urine Collection Type Unknown Urine Color Yellow Urine Clarity Clear Urine pH 7.5 (<5.0-8.0) Urine Specific [place] 1.010 (1.000-1.030) Urine Protein Negative mg/dL (NEG-TRACE) Urine Glucose (UA) Negative mg/dL (NEG) Urine Ketones (Stick) Negative mg/dL (NEG) Urine Blood Negative (NEG) Urine Nitrite Negative (NEG) Urine Bilirubin Negative (NEG) Urine Urobilinogen Dipstick 0.2 mg/dL (0.2 mg/dL) Urine Leukocyte Esterase Negative (NEG) Urine RBC 0 /HPF (0-2) Urine WBC 0 /HPF (0-4) Urine Squamous Epithelial Cells Occ /LPF Urine Bacteria 0 /HPF (0-FEW) Lactic Acid Level 0.8 mmol/L (0.4-2.0) Images: Images PROCEDURE: PORTABLE CHEST 1V XR CHEST 1V Clinical History: Reason: weakness / Spl. Instructions: / History: Technique: AP view of the chest was obtained at 03/10/2021 5:14 PM. Comparison: June 11, 2019. Findings: The cardiomediastinal silhouette is normal. The pulmonary vasculature is normal. The lungs and pleural margins are clear. Impression: No evidence of an acute cardiopulmonary process. PROCEDURE: TIBIA FIBULA LEFT Two-view right tibia-fibula dated 03/10/2021. No comparison available. Clinical data indication: Pain. FINDINGS: 2 views left tibia fibula show normal bony alignment. No displaced fracture. There is diffuse soft tissue swelling. Minimal hypertrophic changes at the knee joint. No apparent knee joint effusion. No periostitis or bone destruction. Vascular calcinosis. Degenerative changes at the midfoot. IMPRESSION: 1. No acute bony abnormality. 2. Diffuse soft tissue swelling. Assessment/Plan Assessment/Plan Generalized weakness Failure to thrive Acute electrolyte derangement with hyponatremia, hypochloremia suggestive of volume depletion Prerenal azotemia Left lower extremity redness and swelling, concerning for cellulitis versus DVT Morbid obesity History of diastolic stage I CHF LVEF of 65% on 05/09/2020 TTE Anemia of chronic disease Admit to hospital service for further management 500 cc NS bolus Hold diuretics at this time Strict I's and O's Sodium and fluid restriction Pending DVT ultrasound of the left lower extremity We will hold off on any antibiotics at this time PT OT Lovenox for DVT prophylaxis Omeprazole GI prophylaxis ADA diet CODE STATUS full Discussed with RN and SW Disposition inpatient management as above DPOA: Daughter In addition to my E/M visit, advance care planning done with A total time of 20 minutes was spent from 10:00 to 1020 face to face in discussion regarding the patient's goals of care, CODE STATUS. Justifications for Admission Other Justification KALI SWANSON MD Mar 11, 2021 08:31
[2021-03-11] MEDS: ACETAMINOPHEN 325 MG TABLET. PO PRN ×2 (08:49→18:21)
[2021-03-11] MEDS: ENOXAPARIN 40 MG/0.4 ML SYRINGE. SQ SCH ×2 (09:00→20:38)
[2021-03-11] MEDS ORDERED: IV NORMAL SALINE 500ML BAG 500 ML IV ONE (14:45)
--- NOTE | 2021-03-11 15:25 | RAD ---
US DPLX VENOUS EXTREMITY LOWER LT History: Reason: redness and swelling / Spl. Instructions: / History: Comparison: None. Technique: Multiple longitudinal and transverse high resolution real-time images of the venous system of left lower extremity were obtained with color and Doppler sampling. Findings: The common femoral, superficial femoral, popliteal and proximal calf veins are all patent and demonst rate normal flow and compressibility. Normal respiratory phasicity and augmentation is present. Impression: 1. No evidence of deep vein thrombosis. Electronically signed by: Alireza Mcfarland DO (03/11/2021 3:23 PM) [id number]
[2021-03-11] MEDS ORDERED: ACET500T68 PO (17:54)
[2021-03-11 19:00] VITALS: BP 145/75
[2021-03-11] MEDS: GABAPENTIN 300 MG CAPSULE. PO SCH (20:38)
[2021-03-11] MEDS: ATORVASTATIN CALCIUM 20 MG TABLET PO SCH (20:38)
[2021-03-11 22:53] VITALS: BP 153/83
[2021-03-12 03:00] VITALS: BP 154/86
[2021-03-12 07:00] VITALS: BP 140/66
[2021-03-12 07:40] LABS: BASO % 1 % (0-3); EOS # 0.1 x10^3/uL (0.0-0.7); EOS % 1 % (0-3); HEMATOCRIT 33.5 % (36.0-47.0); HEMOGLOBIN 11.4 g/dL (12.0-15.5); LYMPH % 18 % (24-48); MEAN CORPUSCULAR HEMOGLOBIN 35 pg (25-35); MEAN CORPUSCULAR HGB CONC 34 g/dL (31-37); MEAN CORPUSCULAR VOLUME 101 fL (79-100); MONO # 0.4 x10^3/uL (0.0-1.1); MONO % 8 % (0-9); NEUT # 3.8 x10^3/uL (1.8-7.7); NEUT % 72 % (31-73); PLATELET COUNT 221 x10^3/uL (140-400); RED CELL DISTRIBUTION WIDTH 13.7 % (11.5-14.5); WHITE BLOOD COUNT 5.2 x10^3/uL (4.0-11.0)
[2021-03-12 08:17] LABS: CALCIUM 8.6 mg/dL (8.5-10.1); CREATININE 0.7 mg/dL (0.6-1.0); GFR 79.5; PHOSPHORUS 2.9 mg/dL (2.6-4.7)
[2021-03-12] MEDS: ASPIRIN CHEWABLE 81 MG TABLET. PO SCH (09:32)
[2021-03-12] MEDS: ENOXAPARIN 40 MG/0.4 ML SYRINGE. SQ SCH (09:32)
[2021-03-12] MEDS: PANTOPRAZOLE 40 MG TABLET.DR. PO SCH (09:34)
[2021-03-12] MEDS: GABAPENTIN 300 MG CAPSULE. PO SCH ×3 (09:34→20:41)
[2021-03-12] MEDS: LISINOPRIL 10 MG TABLET PO SCH (09:34)
[2021-03-12 11:00] VITALS: BP 138/64
--- NOTE | 2021-03-12 12:18 | NUR ---
SW following. Discussed with RN, pt from home with daughter, room air, cardiac diet. PT/OT ordered. Wound care following. SW will continue to follow.
--- NOTE | 2021-03-12 14:18 | PDOC ---
[facility] PROGRESS NOTE Date of Service DOS: DATE: 03/12/21 TIME: 14:14 Chief Complaint Chief Complaint Generalized weakness Failure to thrive Acute electrolyte derangement with hyponatremia, hypochloremia suggestive of volume depletion Prerenal azotemia Left lower extremity redness and swelling, with mild cellulitis Morbid obesity History of diastolic stage I CHF LVEF of 65% on 05/09/2020 TTE Anemia of chronic disease Admit to hospital service for further management 500 cc NS bolus Hold diuretics at this time Strict I's and O's Sodium and fluid restriction Pending DVT ultrasound of the left lower extremity We will hold off on any antibiotics at this time PT OT Lovenox for DVT prophylaxis Omeprazole GI prophylaxis ADA diet CODE STATUS full Discussed with RN and SW Disposition inpatient management as above DPOA: Daughter History of Present Illness History of Present Illness 85-year-old female with past medical history of CHF diastolic stage I, GERD, hypertension, UTI, chronic back pain who comes to the ED with 3-day history of generalized weakness. Patient had some nausea as well. Denies any emesis. Patient has had 1 fall in the last year. Patient lives at home with daughter. Daughter states that the patient has not been drinking much water and appears to look dry to her. Appetite has not changed. Patient is Covid vaccinated in July. Denies fevers, headaches, fevers chills, chest pain, palpitations, shortness of breath, cough, abdominal pain or diarrhea. 03/12/2021 No acute events overnight. Patient seen examined bedside. Improved swelling of the lower extremities. Redness still apparent in the left lower extremity. Will start short course of doxycycline. Sodium improved to 132. Adequate urine output. PT OT evaluation recommending SNF. Patient's chart, labs, images were reviewed and discussed with RN Vitals/I&O Vitals/I&O: Vital Signs Date Time Temp Pulse Resp B/P (MAP) Pulse Ox O2 Delivery O2 Flow Rate FiO2 03/12/21 09:34 88 140/66 03/12/21 08:00 Room Air 03/12/21 07:00 98.4 16 94 98.4 I & O 03/11/21 03/11/21 03/12/21 15:00 23:00 07:00 Intake Total 200 ml Output Total 900 ml Balance -900 ml 200 ml Physical Exam General: Alert, Oriented X3, Cooperative Heart: Regular rate Lungs: Clear Abdomen: No tenderness Extremities: No edema Labs Labs: Laboratory Tests Test 03/11/21 14:53 03/12/21 07:25 [id number]-Type Natriuretic Peptide 860 pg/mL (0-449) White Blood Count 5.2 x10^3/uL (4.0-11.0) Red Blood Count 3.30 x10^6/uL (3.50-5.40) Hemoglobin 11.4 g/dL (12.0-15.5) Hematocrit 33.5 % (36.0-47.0) Mean Corpuscular Volume 101 fL (79-100) Mean Corpuscular Hemoglobin 35 pg (25-35) Mean Corpuscular Hemoglobin Concent 34 g/dL (31-37) Red Cell Distribution Width 13.7 % (11.5-14.5) Platelet Count 221 x10^3/uL (140-400) Neutrophils (%) (Auto) 72 % (31-73) Lymphocytes (%) (Auto) 18 % (24-48) Monocytes (%) (Auto) 8 % (0-9) Eosinophils (%) (Auto) 1 % (0-3) Basophils (%) (Auto) 1 % (0-3) Neutrophils # (Auto) 3.8 x10^3/uL (1.8-7.7) Lymphocytes # (Auto) 1.0 x10^3/uL (1.0-4.8) Monocytes # (Auto) 0.4 x10^3/uL (0.0-1.1) Eosinophils # (Auto) 0.1 x10^3/uL (0.0-0.7) Basophils # (Auto) 0.0 x10^3/uL (0.0-0.2) Sodium Level 132 mmol/L (136-145) Potassium Level 4.0 mmol/L (3.5-5.1) Chloride Level 98 mmol/L (98-107) Carbon Dioxide Level 26 mmol/L (21-32) Anion Gap 8 (6-14) Blood Urea Nitrogen 9 mg/dL (7-20) Creatinine 0.7 mg/dL (0.6-1.0) Estimated GFR (Cockcroft-Gault) 79.5 Glucose Level 86 mg/dL (70-99) Calcium Level 8.6 mg/dL (8.5-10.1) Phosphorus Level 2.9 mg/dL (2.6-4.7) Magnesium Level 2.0 mg/dL (1.8-2.4) Assessment and Plan Assessmemt and Plan Problems Medical Problems: (1) Cellulitis of left anterior lower leg Status: Acute (2) Unable to ambulate Status: Acute (3) Weakness Status: Acute Comment Review of Relevant I have reviewed the following items pete (where applicable) has been applied. Medications: Current Medications Medications (Trade) Dose Ordered Sig/Mason Route PRN Reason Start Time Stop Time Status Last Admin Dose Admin Sodium Chloride 500 ml @ 250 mls/hr 1X ONCE IV 03/11/21 14:45 03/11/21 16:44 DC 03/11/21 14:45 Aspirin (Aspirin Chewable) 81 mg DAILY PO 03/12/21 09:00 03/12/21 09:32 Atorvastatin Calcium (Lipitor) 20 mg QHS PO 03/11/21 21:00 03/11/21 20:38 Gabapentin (Neurontin) 300 mg TID PO 03/11/21 21:00 03/12/21 13:42 Lisinopril (Prinivil) 10 mg DAILY PO 03/12/21 09:00 03/12/21 09:34 Pantoprazole Sodium (Protonix) 40 mg DAILYAC PO 03/12/21 07:30 03/12/21 09:34 Justifications for Admission Other Justification Generalized weakness and lower extremity cellulitis KALI SWANSON MD Mar 12, 2021 14:18
[2021-03-12 15:00] VITALS: BP 146/67
--- NOTE | 2021-03-12 15:21 | NUR ---
Wound Care Pt has cellulitis to left leg, no open areas noted. Pt educated on PU prevention. Wound care will sign off at this time, please reconsult if new wounds develop
[2021-03-12 19:00] VITALS: BP 148/76
[2021-03-12] MEDS: LACTOBACILLUS RHAMNOSUS GG 1 CAPSULE. PO SCH (20:40)
[2021-03-12] MEDS: ATORVASTATIN CALCIUM 20 MG TABLET PO SCH (20:40)
[2021-03-12] MEDS: LORazepam 0.5 MG TABLET PO PRN (20:40)
[2021-03-12] MEDS: DOXYCYCLINE HYCLATE 100 MG TABLET PO SCH (20:41)
[2021-03-12 23:30] VITALS: BP 140/70
[2021-03-13 03:30] VITALS: BP 144/77
[2021-03-13 04:47] LABS: BASO % 1 % (0-3); EOS # 0.1 x10^3/uL (0.0-0.7); EOS % 2 % (0-3); HEMATOCRIT 30.4 % (36.0-47.0); HEMOGLOBIN 10.4 g/dL (12.0-15.5); LYMPH # 1.2 x10^3/uL (1.0-4.8); LYMPH % 24 % (24-48); MEAN CORPUSCULAR HEMOGLOBIN 35 pg (25-35); MEAN CORPUSCULAR HGB CONC 34 g/dL (31-37); MEAN CORPUSCULAR VOLUME 101 fL (79-100); MONO # 0.4 x10^3/uL (0.0-1.1); MONO % 8 % (0-9); NEUT # 3.3 x10^3/uL (1.8-7.7); NEUT % 65 % (31-73); PLATELET COUNT 211 x10^3/uL (140-400); RED CELL DISTRIBUTION WIDTH 13.4 % (11.5-14.5)
[2021-03-13 05:12] LABS: CALCIUM 8.7 mg/dL (8.5-10.1); CREATININE 0.9 mg/dL (0.6-1.0); GFR 59.5; MAGNESIUM 1.9 mg/dL (1.8-2.4); POTASSIUM 4.5 mmol/L (3.5-5.1)
[2021-03-13 07:05] VITALS: BP 139/79
[2021-03-13] MEDS: ENOXAPARIN 30 MG/0.3 ML SYRINGE. SQ SCH (09:04)
[2021-03-13] MEDS: LACTOBACILLUS RHAMNOSUS GG 1 CAPSULE. PO SCH ×2 (09:04→20:49)
[2021-03-13] MEDS: DOXYCYCLINE HYCLATE 100 MG TABLET PO SCH ×2 (09:05→20:49)
[2021-03-13] MEDS: ASPIRIN CHEWABLE 81 MG TABLET. PO SCH (09:05)
[2021-03-13] MEDS: GABAPENTIN 300 MG CAPSULE. PO SCH ×3 (09:05→20:49)
[2021-03-13] MEDS: LISINOPRIL 10 MG TABLET PO SCH (09:05)
[2021-03-13] MEDS: ACETAMINOPHEN 325 MG TABLET. PO PRN (09:05)
[2021-03-13] MEDS: FUROSEMIDE 40 MG TABLET. PO SCH (09:06)
[2021-03-13] MEDS: PANTOPRAZOLE 40 MG TABLET.DR. PO SCH (09:06)
[2021-03-13 11:00] VITALS: BP 133/68
--- NOTE | 2021-03-13 12:33 | PDOC ---
[facility] PROGRESS NOTE Date of Service DOS: DATE: 03/13/21 TIME: 12:31 Chief Complaint Chief Complaint Generalized weakness Failure to thrive Acute electrolyte derangement with hyponatremia, hypochloremia suggestive of volume depletion Prerenal azotemia Left lower extremity redness and swelling, with mild cellulitis Morbid obesity History of diastolic stage I CHF LVEF of 65% on 05/09/2020 TTE Anemia of chronic disease Admit to hospital service for further management 500 cc NS bolus Hold diuretics at this time Strict I's and O's Sodium and fluid restriction Pending DVT ultrasound of the left lower extremity We will hold off on any antibiotics at this time PT OT Lovenox for DVT prophylaxis Omeprazole GI prophylaxis ADA diet CODE STATUS full Discussed with RN and SW Disposition inpatient management as above DPOA: Daughter History of Present Illness History of Present Illness 85-year-old female with past medical history of CHF diastolic stage I, GERD, hypertension, UTI, chronic back pain who comes to the ED with 3-day history of generalized weakness. Patient had some nausea as well. Denies any emesis. Patient has had 1 fall in the last year. Patient lives at home with daughter. Daughter states that the patient has not been drinking much water and appears to look dry to her. Appetite has not changed. Patient is Covid vaccinated in July. Denies fevers, headaches, fevers chills, chest pain, palpitations, shortness of breath, cough, abdominal pain or diarrhea. 03/12/2021 No acute events overnight. Patient seen examined bedside. Improved swelling of the lower extremities. Redness still apparent in the left lower extremity. Will start short course of doxycycline. Sodium improved to 132. Adequate urine output. PT OT evaluation recommending SNF. Patient's chart, labs, images were reviewed and discussed with RN 03/13/2021 No acute events overnight. Patient seen and examined bedside. Seen by physical therapy and recommend SNF placement. Patient actually requested to go to [place]. Patient is tolerating diet and feels better. Adequate urine output. Furosemide p.o. restarted today. Sodium stable at 132. Patient's chart, labs, images were reviewed and discussed with RN Vitals/I&O Vitals/I&O: Vital Signs Date Time Temp Pulse Resp B/P (MAP) Pulse Ox O2 Delivery O2 Flow Rate FiO2 03/13/21 09:05 88 139/79 03/13/21 08:00 Room Air 03/13/21 07:05 98.7 18 98 98.7 I & O 03/12/21 03/12/21 03/13/21 15:00 23:00 07:00 Intake Total 240 ml 240 ml 360 ml Output Total 250 ml Balance 240 ml -10 ml 360 ml Physical Exam General: Alert, Oriented X3, Cooperative Heart: Regular rate Lungs: Clear Abdomen: No tenderness Extremities: No edema Labs Labs: Laboratory Tests Test 03/13/21 03:50 White Blood Count 5.0 x10^3/uL (4.0-11.0) Red Blood Count 3.00 x10^6/uL (3.50-5.40) Hemoglobin 10.4 g/dL (12.0-15.5) Hematocrit 30.4 % (36.0-47.0) Mean Corpuscular Volume 101 fL (79-100) Mean Corpuscular Hemoglobin 35 pg (25-35) Mean Corpuscular Hemoglobin Concent 34 g/dL (31-37) Red Cell Distribution Width 13.4 % (11.5-14.5) Platelet Count 211 x10^3/uL (140-400) Neutrophils (%) (Auto) 65 % (31-73) Lymphocytes (%) (Auto) 24 % (24-48) Monocytes (%) (Auto) 8 % (0-9) Eosinophils (%) (Auto) 2 % (0-3) Basophils (%) (Auto) 1 % (0-3) Neutrophils # (Auto) 3.3 x10^3/uL (1.8-7.7) Lymphocytes # (Auto) 1.2 x10^3/uL (1.0-4.8) Monocytes # (Auto) 0.4 x10^3/uL (0.0-1.1) Eosinophils # (Auto) 0.1 x10^3/uL (0.0-0.7) Basophils # (Auto) 0.0 x10^3/uL (0.0-0.2) Sodium Level 132 mmol/L (136-145) Potassium Level 4.5 mmol/L (3.5-5.1) Chloride Level 99 mmol/L (98-107) Carbon Dioxide Level 26 mmol/L (21-32) Anion Gap 7 (6-14) Blood Urea Nitrogen 12 mg/dL (7-20) Creatinine 0.9 mg/dL (0.6-1.0) Estimated GFR (Cockcroft-Gault) 59.5 Glucose Level 90 mg/dL (70-99) Calcium Level 8.7 mg/dL (8.5-10.1) Magnesium Level 1.9 mg/dL (1.8-2.4) Assessment and Plan Assessmemt and Plan Problems Medical Problems: (1) Cellulitis of left anterior lower leg Status: Acute (2) Unable to ambulate Status: Acute (3) Weakness Status: Acute Comment Review of Relevant I have reviewed the following items pete (where applicable) has been applied. Medications: Current Medications Medications (Trade) Dose Ordered Sig/Mason Route PRN Reason Start Time Stop Time Status Last Admin Dose Admin Doxycycline Hyclate (Vibra-Tab) 100 mg BID PO 03/12/21 21:00 03/15/21 20:59 03/13/21 09:05 Furosemide (Lasix) 40 mg DAILY PO 03/13/21 09:00 03/13/21 09:06 Enoxaparin Sodium (Lovenox 30mg Syringe) 30 mg Q24H SQ 03/13/21 09:00 03/13/21 09:04 Lactobacillus Rhamnosus (Culturelle) 1 cap BID PO 03/12/21 21:00 03/13/21 09:04 Justifications for Admission Other Justification Generalized weakness and lower extremity cellulitis KALI SWANSON MD Mar 13, 2021 12:33
--- NOTE | 2021-03-13 13:34 | NUR ---
SW following. Discussed with RN, therapy recommending SNF. SW spoke with pt, she would like [facility]. Referral faxed to [facility] as [facility] do have beds today. Awaiting final acceptance decision and negative COVID result. Highly likely discharge today to SNF. SW will continue to follow.
[2021-03-13 15:00] VITALS: BP 124/82
[2021-03-13 19:54] VITALS: BP 143/84
[2021-03-13] MEDS: ATORVASTATIN CALCIUM 20 MG TABLET PO SCH (20:49)
[2021-03-13] MEDS: LORazepam 0.5 MG TABLET PO PRN (20:49)
[2021-03-13 23:04] VITALS: BP 133/69
[2021-03-14 03:17] VITALS: BP 137/71
[2021-03-14 07:00] VITALS: BP 192/110
[2021-03-14 07:31] LABS: BASO % 1 % (0-3); EOS # 0.1 x10^3/uL (0.0-0.7); EOS % 3 % (0-3); HEMATOCRIT 34.4 % (36.0-47.0); HEMOGLOBIN 11.5 g/dL (12.0-15.5); LYMPH # 1.2 x10^3/uL (1.0-4.8); LYMPH % 25 % (24-48); MEAN CORPUSCULAR HEMOGLOBIN 34 pg (25-35); MEAN CORPUSCULAR HGB CONC 33 g/dL (31-37); MEAN CORPUSCULAR VOLUME 102 fL (79-100); MONO # 0.3 x10^3/uL (0.0-1.1); MONO % 7 % (0-9); NEUT # 3.1 x10^3/uL (1.8-7.7); NEUT % 65 % (31-73); PLATELET COUNT 219 x10^3/uL (140-400); RED BLOOD COUNT 3.37 x10^6/uL (3.50-5.40); RED CELL DISTRIBUTION WIDTH 13.6 % (11.5-14.5); WHITE BLOOD COUNT 4.8 x10^3/uL (4.0-11.0)
[2021-03-14 08:30] LABS: CALCIUM 8.8 mg/dL (8.5-10.1); CREATININE 0.9 mg/dL (0.6-1.0); GFR 59.5; MAGNESIUM 1.9 mg/dL (1.8-2.4); POTASSIUM 4.2 mmol/L (3.5-5.1)
[2021-03-14] MEDS: ENOXAPARIN 30 MG/0.3 ML SYRINGE. SQ SCH (10:53)
[2021-03-14] MEDS: ACETAMINOPHEN 325 MG TABLET. PO PRN ×2 (10:53→22:14)
[2021-03-14] MEDS: ASPIRIN CHEWABLE 81 MG TABLET. PO SCH (10:53)
[2021-03-14] MEDS: PANTOPRAZOLE 40 MG TABLET.DR. PO SCH (10:54)
[2021-03-14] MEDS: DOXYCYCLINE HYCLATE 100 MG TABLET PO SCH ×2 (10:54→22:15)
[2021-03-14] MEDS: GABAPENTIN 300 MG CAPSULE. PO SCH ×3 (10:54→22:15)
[2021-03-14] MEDS: LACTOBACILLUS RHAMNOSUS GG 1 CAPSULE. PO SCH ×2 (10:54→22:14)
[2021-03-14] MEDS: FUROSEMIDE 40 MG TABLET. PO SCH (10:54)
[2021-03-14] MEDS: LISINOPRIL 10 MG TABLET PO SCH (10:55)
[2021-03-14 11:00] VITALS: BP 182/104
[2021-03-14] MEDS ORDERED: DOXY100T PO (11:46)
--- NOTE | 2021-03-14 11:48 | DISCH ---
DISCHARGE INSTRUCTIONS Condition on Discharge Condition on Discharge: Stable Activity After Discharge Activity Instructions for Disc: Activity as tolerated Lifting Instructions after Dis: No heavy lifting Exercise Instruction after Dis: Walk 10 min, 3 x per day, Progress as tolerated Driving Instructions after Dis: No driving for 2 weeks Weight Bearing Status after Di: No restrictions Diet after Discharge Diet after Discharge: Cardiac, Regular Diet Texture: Regular Liquid Texture: Thin Liquid Checks after Discharge Checks after discharge: Check blood press - daily, Check your Temp as needed, Weigh Yourself Daily Follow-Up Follow up with: PCP within 2 weeks of discharge KALI SWANSON MD Mar 14, 2021 11:48
--- NOTE | 2021-03-14 14:48 | SNU/HH DC ---
DISCHARGE ORDERS DISCHARGE INFORMATION: DISCHARGE DATE: Mar 14, 2021 FINAL DIAGNOSIS Problems Medical Problems: (1) Cellulitis of left anterior lower leg Status: Acute (2) Unable to ambulate Status: Acute (3) Weakness Status: Acute CONDITION ON DISCHARGE: Stable CODE STATUS: Code Status: Full NURSING HOME: SNF STAY <30 DAYS: Yes POST DISCHARGE ORDERS: ACTIVITY ORDERS: Activity as tolerated WEIGHT BEARING STATUS: No restrictions CHECKS AFTER DISCHARGE: CHECKS AFTER DISCHARGE: Check blood press - daily, Check your Temp as needed, Weigh Yourself Daily FOLLOW-UP: PHYSICIAN FOLLOW-UP: PCP within 2 weeks of discharge TREATMENT/EQUIPMENT ORDERS: Physical Therapy For: Evalulation/Treatment Occupational Therapy For: Evaluation/Treatment Speech Language Pathology For: Evaluation/Treatment DISCHARGE MEDICATIONS: Home Meds Active Scripts Doxycycline Hyclate (DOXYCYCLINE HYCLATE) 100 Mg Tablet, 100 MG PO BID for cellulitis of the LLE for 1 Day, #2 TAB Prov:KALI SWANSON MD 03/14/21 Atorvastatin Calcium (ATORVASTATIN CALCIUM) 20 Mg Tablet, 20 MG PO QHS for CVA for 30 Days, #30 TAB Prov:IGNACIO NUÑEZ MD 06/15/19 Reported Medications Acetaminophen (ACETAMINOPHEN) 500 Mg Tablet, 1000 MG PO PRN Q6HRS PRN for PAIN, TAB 03/11/21 Denosumab (PROLIA) 60 Mg/1 Ml Disp.syrin, 60 MG SQ every 6 months for oste oporosis, DIS.SYR 11/02/19 Colestipol Hcl (COLESTIPOL HCL) 1 Gm Tablet, 1 GM PO DAILY for unk, TAB 10/19/19 Cyanocobalamin (Vitamin B-12) (Vitamin B12) 2,500 Mcg Tablet, 1 TAB PO DAILY for supp for 30 Days, #30 TAB 0 Refills 10/19/19 Omeprazole (OMEPRAZOLE) 20 Mg Capsule.dr, 1 CAP PO DAILY for gerd, #30 CAP 5 Refills 10/19/19 Gabapentin (GABAPENTIN ) 300 Mg Capsule, 300 MG PO TID for NEUROGENIC PAIN, CAP 03/30/19 Furosemide (FUROSEMIDE) 40 Mg Tablet, 1 TAB PO DAILY, #30 TAB 5 Refills 12/14/17 Potassium Chloride (KLOR-CON 10) 10 Meq Tablet.er, 1 TAB PO DAILY, #30 TAB 5 Refills 08/31/17 Aspirin (ASPIRIN) 81 Mg Tab.chew, 1 TAB PO DAILY, #30 TAB 3 Refills 02/09/15 Calcium Carbonate/Vitamin D3 (Calcium 600 + D Tablet) 1 Each Tablet, 1 EACH PO DAILY 02/09/15 Multivitamin (MULTI VITAMIN DAILY) 1 Each Tablet, 1 EACH PO DAILY 02/09/15 Lisinopril (LISINOPRIL) 10 Mg Tablet, 10 MG PO DAILY for FOR HYPERTENSION, #30 TAB 0 Refills 02/09/15 Ibuprofen (ADVIL) 200 Mg Tablet, 200 MG PO PRN Q4HRS PRN for PAIN 02/07/15 Discontinued Reported Medications Acetaminophen (TYLENOL) 325 Mg Tablet, 1000 MG PO PRN Q6HRS PRN for PAIN 02/07/15 Discontinued Scripts Cephalexin (KEFLEX) 500 Mg Capsule, 1 CAP PO BID for 10 Days, #20 CAP Prov:RADHA BOCANEGRA 03/10/21 KALI SWANSON MD Mar 14, 2021 14:48
[2021-03-14 15:00] VITALS: BP 164/79
[2021-03-14 19:00] VITALS: BP 155/82
[2021-03-14] MEDS: ATORVASTATIN CALCIUM 20 MG TABLET PO SCH (22:15)
[2021-03-14 23:00] VITALS: BP 145/73
[2021-03-15 03:00] VITALS: BP 139/67
[2021-03-15 07:00] VITALS: BP 159/77
--- NOTE | 2021-03-15 08:18 | PDOC ---
[facility] PROGRESS NOTE Date of Service DOS: DATE: 03/14/21 TIME: 08:17 Chief Complaint Chief Complaint Generalized weakness Failure to thrive Acute electrolyte derangement with hyponatremia, hypochloremia suggestive of volume depletion Prerenal azotemia Left lower extremity redness and swelling, with mild cellulitis Morbid obesity History of diastolic stage I CHF LVEF of 65% on 05/09/2020 TTE Anemia of chronic disease Admit to hospital service for further management 500 cc NS bolus Hold diuretics at this time Strict I's and O's Sodium and fluid restriction Pending DVT ultrasound of the left lower extremity We will hold off on any antibiotics at this time PT OT Lovenox for DVT prophylaxis Omeprazole GI prophylaxis ADA diet CODE STATUS full Discussed with RN and SW Disposition inpatient management as above DPOA: Daughter History of Present Illness History of Present Illness 85-year-old female with past medical history of CHF diastolic stage I, GERD, hypertension, UTI, chronic back pain who comes to the ED with 3-day history of generalized weakness. Patient had some nausea as well. Denies any emesis. Patient has had 1 fall in the last year. Patient lives at home with daughter. Daughter states that the patient has not been drinking much water and appears to look dry to her. Appetite has not changed. Patient is Covid vaccinated in July. Denies fevers, headaches, fevers chills, chest pain, palpitations, shortness of breath, cough, abdominal pain or diarrhea. 03/12/2021 No acute events overnight. Patient seen examined bedside. Improved swelling of the lower extremities. Redness still apparent in the left lower extremity. Will start short course of doxycycline. Sodium improved to 132. Adequate urine output. PT OT evaluation recommending SNF. Patient's chart, labs, images were reviewed and discussed with RN 03/13/2021 No acute events overnight. Patient seen and examined bedside. Seen by physical therapy and recommend SNF placement. Patient actually requested to go to [place]. Patient is tolerating diet and feels better. Adequate urine output. Furosemide p.o. restarted today. Sodium stable at 132. Patient's chart, labs, images were reviewed and discussed with RN 03/14/2021 No acute events overnight. Patient seen and examined bedside. No concerns with nursing. Patient's chart, labs, images were reviewed and discussed with RN Vitals/I&O Vitals/I&O: Vital Signs Date Time Temp Pulse Resp B/P (MAP) Pulse Ox O2 Delivery O2 Flow Rate FiO2 03/15/21 03:00 97.7 83 14 139/67 (91) 94 Room Air 97.7 I & O 03/14/21 03/14/21 03/15/21 15:00 23:00 07:00 Intake Total 550 ml Balance 550 ml Physical Exam General: Alert, Oriented X3, Cooperative Heart: Regular rate Lungs: Clear Abdomen: No tenderness Extremities: No edema Assessment and Plan Assessmemt and Plan Problems Medical Problems: (1) Cellulitis of left anterior lower leg Status: Acute (2) Unable to ambulate Status: Acute (3) Weakness Status: Acute Comment Review of Relevant I have reviewed the following items pete (where applicable) has been applied. Justifications for Admission Other Justification Generalized weakness and lower extremity cellulitis KALI SWANSON MD Mar 15, 2021 08:18
[2021-03-15] MEDS: ACETAMINOPHEN 325 MG TABLET. PO PRN (08:48)
[2021-03-15] MEDS: LACTOBACILLUS RHAMNOSUS GG 1 CAPSULE. PO SCH (08:49)
[2021-03-15] MEDS: ASPIRIN CHEWABLE 81 MG TABLET. PO SCH (08:49)
[2021-03-15] MEDS: GABAPENTIN 300 MG CAPSULE. PO SCH (08:49)
[2021-03-15] MEDS: FUROSEMIDE 40 MG TABLET. PO SCH (08:49)
[2021-03-15] MEDS: DOXYCYCLINE HYCLATE 100 MG TABLET PO SCH (08:49)
[2021-03-15] MEDS: LISINOPRIL 10 MG TABLET PO SCH (08:49)
[2021-03-15] MEDS: PANTOPRAZOLE 40 MG TABLET.DR. PO SCH (08:50)
[2021-03-15] MEDS: ENOXAPARIN 30 MG/0.3 ML SYRINGE. SQ SCH (08:51)
[2021-03-15 11:00] VITALS: BP 146/72
--- NOTE | 2021-03-19 00:29 | PDOC3 ---
[facility]-Discharge Summary Date of Admission: Date of Admission: Mar 11, 2021 Date of Discharge: Date of Discharge: Mar 15, 2021 Discharge Diagnosis: Discharge Diagnosis: Generalized weakness Failure to thrive Acute electrolyte derangement with hyponatremia, hypochloremia suggestive of volume depletion Prerenal azotemia Left lower extremity redness and swelling, with mild cellulitis Morbid obesity History of diastolic stage I CHF LVEF of 65% on 05/09/2020 TTE Anemia of chronic disease Hospital Course: Hospital Course: 85-year-old female with past medical history of CHF diastolic stage I, GERD, hypertension, UTI, chronic back pain who comes to the ED with 3-day history of generalized weakness. Patient had some nausea as well. Denies any emesis. Patient has had 1 fall in the last year. Patient lives at home with daughter. Daughter states that the patient has not been drinking much water and appears to look dry to her. Appetite has not changed. Patient is Covid vaccinated in July. Denies fevers, headaches, fevers chills, chest pain, palpitations, shortness of breath, cough, abdominal pain or diarrhea. 03/12/2021 No acute events overnight. Patient seen examined bedside. Improved swelling of the lower extremities. Redness still apparent in the left lower extremity. Will start short course of doxycycline. Sodium improved to 132. Adequate urine output. PT OT evaluation recommending SNF. Patient's chart, labs, images were reviewed and discussed with RN 03/13/2021 No acute events overnight. Patient seen and examined bedside. Seen by physical therapy and recommend SNF placement. Patient actually requested to go to [place]. Patient is tolerating diet and feels better. Adequate urine output. Furosemide p.o. restarted today. Sodium stable at 132. Patient's chart, labs, images were reviewed and discussed with RN 03/14/2021 No acute events overnight. Patient seen and examined bedside. No concerns with nursing. Patient's chart, labs, images were reviewed and discussed with RN By day of discharge, pt was clinically stable and ready for discharge. Rest of hospital course was uneventful Disposition: Disposition/Orders: D/C to Home w/ HH Activity: Activity: Resume previous activity Diet: Diet: Cardiac Medications: Home Meds Active Scripts Doxycycline Hyclate (DOXYCYCLINE HYCLATE) 100 Mg Tablet, 100 MG PO BID for cellulitis of the LLE for 1 Day, #2 TAB Prov:KALI SWANSON MD 03/14/21 Atorvastatin Calcium (ATORVASTATIN CALCIUM) 20 Mg Tablet, 20 MG PO QHS for CVA for 30 Days, #30 TAB Prov:IGNACIO NUÑEZ MD 06/15/19 Reported Medications Acetaminophen (ACETAMINOPHEN) 500 Mg Tablet, 1000 MG PO PRN Q6HRS PRN for PAIN, TAB 03/11/21 Denosumab (PROLIA) 60 Mg/1 Ml Disp.syrin, 60 MG SQ every 6 months for osteoporosis, DIS.SYR 11/02/19 Colestipol Hcl (COLESTIPOL HCL) 1 Gm Tablet, 1 GM PO DAILY for unk, TAB 10/19/19 Cyanocobalamin (Vitamin B-12) (Vitamin B12) 2,500 Mcg Tablet, 1 TAB PO DAILY for supp for 30 Days, #30 TAB 0 Refills 10/19/19 Omeprazole (OMEPRAZOLE) 20 Mg Capsule.dr, 1 CAP PO DAILY for gerd, #30 CAP 5 Refills 10/19/19 Gabapentin (GABAPENTIN ) 300 Mg Capsule, 300 MG PO TID for NEUROGENIC PAIN, CAP 03/30/19 Furosemide (FUROSEMIDE) 40 Mg Tablet, 1 TAB PO DAILY, #30 TAB 5 Refills 12/14/17 Potassium Chloride (KLOR-CON 10) 10 Meq Tablet.er, 1 TAB PO DAILY, #30 TAB 5 Refills 08/31/17 Aspirin (ASPIRIN) 81 Mg Tab.chew, 1 TAB PO DAILY, #30 TAB 3 Refills 02/09/15 Calcium Carbonate/Vitamin D3 (Calcium 600 + D Tablet) 1 Each Tablet, 1 EACH PO DAILY 02/09/15 Multivitamin (MULTI VITAMIN DAILY) 1 Each Tablet, 1 EACH PO DAILY 02/09/15 Lisinopril (LISINOPRIL) 10 Mg Tablet, 10 MG PO DAILY for FOR HYPERTENSION, #30 TAB 0 Refills 02/09/15 Ibuprofen (ADVIL) 200 Mg Tablet, 200 MG PO PRN Q4HRS PRN for PAIN 02/07/15 Scheduled Aspirin (Aspirin), 1 TAB PO DAILY, (Reported) Atorvastatin Calcium (Atorvastatin Calcium), 20 MG PO QHS Calcium Carbonate/Vitamin D3 (Calcium 600 + D Tablet), 1 EACH PO DAILY, (Reported) Colestipol Hcl (Colestipol Hcl), 1 GM PO DAILY, (Reported) Cyanocobalamin (Vitamin B-12) (Vitamin B12), 1 TAB PO DAILY, (Reported) Denosumab (Prolia), 60 MG SQ every 6 months, (Reported) Doxycycline Hyclate (Doxycycline Hyclate), 100 MG PO BID Furosemide (Furosemide), 1 TAB PO DAILY, (Reported) Gabapentin (Gabapentin ), 300 MG PO TID, (Reported) Lisinopril (Lisinopril), 10 MG PO DAILY, (Reported) Multivitamin (Multi Vitamin Daily), 1 EACH PO DAILY, (Reported) Omeprazole (Omeprazole), 1 CAP PO DAILY, (Reported) Potassium Chloride (Klor-Con 10), 1 TAB PO DAILY, (Reported) Scheduled PRN Acetaminophen (Acetaminophen), 1,000 MG PO PRN Q6HRS PRN for PAIN, (Reported) Ibuprofen (Advil), 200 MG PO PRN Q4HRS PRN for PAIN, (Reported) Total Time: Total Time: Total time spent was 36 minutes in preparing scripts, discharge planning with SW and RN, and preparing this discharge summary. Patient seen and examined on day of discharge. Justicifation of Admission Dx: Justifications for Admission: Justification of Admission Dx: Yes Chronic Renal Failure: Electrolyte Abnormality Cellulitis: Cellulitis KALI SWANSON MD Mar 19, 2021 00:29
== END 2021-03-15 13:52 | DRG 603 ==
LOC: ER 16:18 → ED HOLD 20:15 → 5 SOUTH 03-11 17:22
PROVIDERS: ADMIT Internal Medicine; ATTEND Internal Medicine
DX: L03.116 Cellulitis of left lower limb (principal); E87.1 Hypo-osmolality and hyponatremia; I50.32 Chronic diastolic (congestive) heart failure; Z68.1 Body mass index [BMI] 19.9 or less, adult; D63.8 Anemia in other chronic diseases classified elsewhere; E66.01 Morbid (severe) obesity due to excess calories; E83.59 Other disorders of calcium metabolism; E87.8 Other disorders of electrolyte and fluid balance, not elsewhere classified; I11.0 Hypertensive heart disease with heart failure; M81.0 Age-related osteoporosis without current pathological fracture; R62.7 Adult failure to thrive; Z86.73 Personal history of transient ischemic attack (TIA), and cerebral infarction without residual deficits; Z90.710 Acquired absence of both cervix and uterus; G89.29 Other chronic pain; K21.9 Gastro-esophageal reflux disease without esophagitis; Z87.440 Personal history of urinary (tract) infections; Z88.8 Allergy status to other drugs, medicaments and biological substances
CPT/HCPCS: 36415; 71045; 73590; 80048; 80053; 81001; 83605; 83690; 83735; 83880; 84100; 85025; 87040; 93005; 93971; 96361; 96374; J0696; J1650; J2060; J2270; J2405; J7040; U0003; U0005; 97110-GO; 97530-GO; 97530-GP; 97535-GO; 99285-25; G0378

== ENCOUNTER → 2021-06-19 | Outpatient (CLI) | payer MEDICARE, BC ==
[~2021-06-19] MED LIST changes: +ACET500T68 PO; +CEPH500C PO; +DOXY100T PO
--- NOTE | 2021-06-19 16:32 | CARD ---
MR#: [id number] Date of Study: 06/19/2021 Ordering Physician: SHERIE PALMER, Referring Physician: SHERIE PALMER Tech: [place] [facility] APPROVED REPORT EXAM: Two-dimensional and M-mode echocardiogram with Doppler and color Doppler. Other Information Quality : GoodHR: 83bpm Rhythm : NSR INDICATION RISK FACTORS Hypertension Hyperlipidemia 2D DIMENSIONS RVDd3.5 (2.9-3.5cm)Left Atrium(2D)3.8 (1.6-4.0cm) IVSd1.3 (0.7-1.1cm)Aortic Root(2D)2.8 (2.0-3.7cm) LVDd4.2 (3.9-5.9cm)LVOT Diameter2.0 (1.8-2.4cm) PWd1.2 (0.7-1.1cm)LVDs2.7 (2.5-4.0cm) FS (%) 35.9 %SV50.7 ml Aortic Valve AoV Peak Prabhu.125.6cm/sAoV VTI23.7cm AO Peak GR.6.3mmHgLVOT Peak Prabhu.107.2cm/s AO Mean GR.3mmHgAVA (VMAX)2.59cm2 AI P 1/2 [id number] Mitral Valve MV E Uvvkyodt67.5cm/sMV DECEL [id number] MV A Azlknuug159.4cm/sE/A Ratio0.8 Pulmonary Valve PV Peak Jiuseffe567.7cm/s Tricuspid Valve TR P. Tiywjsru970ry/sTR Peak Gr.33mmHg LEFT VENTRICLE The left ventricle is normal size. There is mild concentric left ventricular hypertrophy. The left ve ntricular systolic function is normal and the ejection fraction is within normal range. LV ejection fraction is 50 to 55%. There is normal LV segmental wall motion. Transmitral Doppler flow pattern is Grade I-abnormal relaxation pattern. RIGHT VENTRICLE The right ventricle is normal size. There is normal right ventricular wall thickness. The right ventr icular systolic function is normal. ATRIA The left atrium size is normal. The right atrium size is normal. The interatrial septum is intact wit h no evidence for an atrial septal defect or patent foramen ovale as noted on 2-D or Doppler imaging. AORTIC VALVE The aortic valve is normal in structure and function. Doppler and Color Flow revealed no significant aortic regurgitation. There is no significant aortic valvular stenosis. MITRAL VALVE The mitral valve is normal in structure and function. There is no evidence of mitral valve prolapse. There is no mitral valve stenosis. Doppler and Color-flow revealed mild mitral regurgitation. TRICUSPID VALVE The tricuspid valve is normal in structure and function. Doppler and Color Flow revealed mild tricusp id regurgitation. Estimated PAP 35-40 mmHg. There is no tricuspid valve stenosis. PULMONIC VALVE The pulmonary valve is normal in structure and function. Doppler and Color Flow revealed trace pulmon ic valvular regurgitation. GREAT VESSELS The aortic root is normal in size. The ascending aorta is normal in size. The IVC is normal in size a nd collapses >50% with inspiration. PERICARDIAL EFFUSION There is no evidence of significant pericardial effusion. Critical Notification Critical Value: No <Conclusion> The left ventricle is normal size. The left ventricular systolic function is normal and the ejection fraction is within normal range. LV ejection fraction is 50 to 55%. There is mild concentric left ventricular hypertrophy. Transmitral Doppler flow pattern is Grade I-abnormal relaxation pattern. Doppler and Color Flow revealed no significant aortic regurgitation. There is no significant aortic valvular stenosis. Doppler and Color-flow revealed mild mitral regurgitation. Doppler and Color Flow revealed mild tricuspid regurgitation. Estimated PAP 35-40 mmHg. Signed by : Benny Benitez MD Electronically Approved : 06/19/2021 16:31:35
== END ==
LOC: ECHO 13:49
PROVIDERS: ATTEND Internal Medicine Cardiovascular Disease
DX: I08.1 Rheumatic disorders of both mitral and tricuspid valves (principal); I50.32 Chronic diastolic (congestive) heart failure
CPT/HCPCS: 93306; C8929

== ENCOUNTER → 2021-07-01 | Outpatient (CLI) | payer MEDICARE, BC ==
--- NOTE | 2021-07-01 16:40 | KCIC ---
EXAM: Right knee, 4 views. HISTORY: Pain. Contusion COMPARISON: 11/05/2017 FINDINGS: 4 views of the right knee are obtained. There is mild medial compartment joint space narrow ing and spurring. There is medial and lateral compartment chondrocalcinosis. There is no joint effusi on. There is bone demineralization. IMPRESSION: Mild medial compartment predominant osteoarthritis of the right knee and right knee, calc inosis. Bone demineralization. Electronically signed by: Nely Escamilla MD (07/01/2021 4:38 PM) [id number]
== END ==
LOC: KCIC 15:42
PROVIDERS: ATTEND Family Medicine
DX: M17.11 Unilateral primary osteoarthritis, right knee (principal); M81.8 Other osteoporosis without current pathological fracture; M11.261 Other chondrocalcinosis, right knee; M76.891 Other specified enthesopathies of right lower limb, excluding foot
CPT/HCPCS: 73564

== ENCOUNTER 2021-08-18 05:56 | Inpatient (IN) | payer MEDICARE, BC ==
[~2021-08-18] VITALS: Ht 149.9 cm; Wt 45.5 kg
--- NOTE | 2021-08-18 06:56 | PHYS DOC ---
Past Medical History Past Medical History: CHF, GERD, Hypertension, UTI, Other Additional Past Medical Histor: osteoporosis, chronic back pain, DAILY ASA, MURMUR,KYPHOSIS Past Surgical History: Hysterectomy, Other Additional Past Surgical Histo: back sx x 2, R breast lump removed Smoking Status: Never Smoker Alcohol Use: None Drug Use: None Adult General Chief Complaint Chief Complaint: NECK PAIN HPI HPI The patient is an 85-year-old community dwelling female with a history of hypertension, diastolic heart failure, acid reflux and chronic back pain in the setting of severe kyphosis. She takes narcotic oral medication for her chronic back pain at home. Ms. Trejo presents for evaluation of acute on chronic discomfort to the base of her neck and midline thoracic back which she states is the same as her chronic back pain, but worse than usual. No new injury. She denies any falls. States she did not take the hydrocodone pill that she normally takes before bedtime last night. Patient denies fevers, nausea or vomiting, headache, upper respiratory congestion/rhinorrhea, cough, sore throat, shortness of breath or chest pain of any kind, abdominal pain of any kind, flank pain, dysuria, hematuria, polyuria or oliguria, changes in bowel habits, pain or swelling to arms or legs worse than usual (patient notes bilateral leg swelling and redness, mild and symmetric, which are about the same as they always are). She denies loss of bowel or bladder control, saddle anesthesia, new lower extremity weakness, numbness or tingling, new urinary retention, use of intravenous illegal drugs. Vital signs are appropriate here and the patient is in no acute distress. Review of Systems Review of Systems A 12 point review of systems was completed and was negative except where noted in HPI above. Current Medications Current Medications Current Medications Medications (Trade) Dose Ordered Sig/Mason Start Time Stop Time Status Last Admin Dose Admin Acetaminophen (Tylenol) 1,000 mg 1X ONCE 08/18/21 07:00 08/18/21 07:01 DC 08/18/21 06:34 1,000 MG Lidocaine (Lidoderm) 1 patch 1X ONCE 08/18/21 07:00 08/18/21 07:01 DC 08/18/21 06:36 1 PATCH Lisinopril (Prinivil) 20 mg 1X ONCE 08/18/21 07:45 08/18/21 07:50 DC 08/18/21 07:58 20 MG Morphine Sulfate (Morphine Sulfate) 4 mg 1X ONCE 08/18/21 10:30 08/18/21 10:31 DC 08/18/21 10:28 4 MG Oxycodone HCl (Roxicodone) 5 mg 1X ONCE 08/18/21 07:15 08/18/21 07:16 DC 08/18/21 07:34 5 MG Allergies Allergies Allergies Coded Allergies Type Severity Reaction Last Updated Verified celecoxib Allergy Intermediate 12/14/17 Yes Physical Exam Physical Exam 85-year-old female appearing nontoxic and in no acute distress. Severely kyphotic. Head is normocephalic and atraumatic. Neck is supple and nontender. Oropharynx is moist. Lungs are clear to auscultation at all stations. There is a normal S1 and S2 without rubs or gallops and capillary refill is appropriate, less than 2 seconds globally. Abdomen is soft, nontender and nondistended. Examination of the back reveals mild mid thoracic/high lumbar midline tenderness to palpation without erythema, warmth, swelling, step-offs or deformities seen. Pelvis is stable and nontender. Evaluation of the extremities reveals BUEs and BLEs neurovascularly intact distally with strength out of 5, sensation intact light touch in all nerve distributions, radial, DP and PT pulses 2+ and equal bilaterally, capillary refill less than 2 seconds, hands and feet warm and well- perfused. Mild 1+ pitting edema to the bilateral lower extremities below the level of the knees with some very mild superimposed erythema bilaterally, sy mmetric. Patient states her legs look like they normally do and that the redness is normal for her. Skin is warm and dry without cyanosis, clubbing or edema. Psychiatrically, the patient demonstrates appropriate mood and affect and is alert. Current Patient Data Vital Signs Vital Signs Date Time Temp Pulse Resp B/P (MAP) Pulse Ox O2 Delivery O2 Flow Rate FiO2 08/18/21 10:28 16 97 Room Air 08/18/21 08:57 84 178/82 (114) 08/18/21 05:57 98.0 98.0 Lab Values Laboratory Tests Test 08/18/21 08:45 08/18/21 08:56 Urine Collection Type Unknown Urine Color (Auto) Colorless Urine Turbidity Clear Urine pH (Auto) 7.5 (<5.0-8.0) Urine Specific [place] 1.010 (1.000-1.030) Urine Protein (Auto) Negative mg/dL (Negative) Urine Glucose (Auto)(UA) Negative mg/dL (Negative) Urine Ketones (Auto) 10 mg/dL (Negative) Urine Blood (Auto) Negative (Negative) Urine Nitrite Negative (Negative) Urine Bilirubin (Auto) Negative (Negative) Urine Urobilinogen (Auto) Normal mg/dL (Normal) Urine Leukocyte Esterase (Auto) Negative (Negative) Urine RBC 1-2 /HPF (0-2) Urine WBC 0 /HPF (0-4) Urine Bacteria 0 /HPF (0-FEW) White Blood Count 9.0 x10^3/uL (4.0-11.0) Red Blood Count 3.38 x10^6/uL (3.50-5.40) L Hemoglobin 11.9 g/dL (12.0-15.5) L Hematocrit 34.7 % (36.0-47.0) L Mean Corpuscular Volume 103 fL (79-100) H Mean Corpuscular Hemoglobin 35 pg (25-35) Mean Corpuscular Hemoglobin Concent 34 g/dL (31-37) Red Cell Distribution Width 14.0 % (11.5-14.5) Platelet Count 158 x10^3/uL (140-400) Neutrophils (%) (Auto) 92 % (31-73) H Lymphocytes (%) (Auto) 2 % (24-48) L Monocytes (%) (Auto) 6 % (0-9) Eosinophils (%) (Auto) 0 % (0-3) Basophils (%) (Auto) 0 % (0-3) Neutrophils # (Auto) 8.3 x10^3/uL (1.8-7.7) H Lymphocytes # (Auto) 0.1 x10^3/uL (1.0-4.8) L Monocytes # (Auto) 0.5 x10^3/uL (0.0-1.1) Eosinophils # (Auto) 0.0 x10^3/uL (0.0-0.7) Basophils # (Auto) 0.0 x10^3/uL (0.0-0.2) Segmented Neutrophils % 91 % (35-66) H Band Neutrophils % 1 % (0-9) Lymphocytes % 1 % (24-48) L Monocytes % 7 % (0-10) Platelet Estimate Adequate (ADEQUATE) Erythrocyte Sedimentation Rate 30 (0-25) H Sodium Level 130 mmol/L (136-145) L Potassium Level 4.2 mmol/L (3.5-5.1) Chloride Level 96 mmol/L (98-107) L Carbon Dioxide Level 26 mmol/L (21-32) Anion Gap 8 (6-14) Blood Urea Nitrogen 17 mg/dL (7-20) Creatinine 0.9 mg/dL (0.6-1.0) Estimated GFR (Cockcroft-Gault) 59.5 BUN/Creatinine Ratio 19 (6-20) Glucose Level 131 mg/dL (70-99) H Calcium Level 9.4 mg/dL (8.5-10.1) Total Bilirubin 0.6 mg/dL (0.2-1.0) Aspartate Amino Transferase (AST) 27 U/L (15-37) Alanine Aminotransferase (ALT) 31 U/L (14-59) Alkaline Phosphatase 67 U/L (46-116) Troponin I High Sensitivity 14 ng/L (4-50) C-Reactive Protein, Quantitative 93.6 mg/L (0-3.3) H Total Protein 7.0 g/dL (6.4-8.2) Albumin 4.2 g/dL (3.4-5.0) Albumin/Globulin Ratio 1.5 (1.0-1.7) Laboratory Tests 08/18/21 08:56 Laboratory Tests 08/18/21 08:56 EKG EKG Sinus rhythm, no acute ST elevation or depression, EP interpretation. Nonischemic tracing. Radiology/Procedures Radiology/Procedures [] Course & Med Decision Making Course & Med Decision Making Acute on chronic atraumatic back discomfort; patient normally takes a narcotic pain pill for her back pain when she goes to bed but did not last night. Vital signs and clinical examination are reassuring. No red flags for back pain today. We will give a dose of intramuscular morphine, oral Tylenol and a Lidoderm patch and will then reevaluate. If patient feels better, likely home to follow-up closely with primary care. She understands and agrees. 0930: Patient not feeling significantly better after multiple rounds of medication. Given advanced age and mobility issues even at baseline, likely not safe to go home given persistent significant discomfort. Will expand work-up with labs, EKG and imaging and plan for admission. Patient understands and agrees. 1100: Work-up unremarkable aside from inflammatory marker elevation, nonspecific, along with lots of degenerative change in the spine and some subacute compression deformities. Patient resting comfortably in improved condition after multiple rounds of pain medication, but still hurting and having difficulty ambulating. Will bring in for further care under Dr. Ortiz, who graciously accepts. Dragon Disclaimer Dragon Disclaimer This electronic medical record was generated, in whole or in part, using a voice recognition dictation system. Departure Departure Impression: Primary Impression: Chronic thoracic back pain Additional Impression: Kyphosis Disposition: ADMITTED INPATIENT Condition: STABLE Referrals: EMELYN MARTINES MD (PCP) Problem Qualifiers Primary Impression: Chronic thoracic back pain Back pain laterality: midline Qualified Codes: M54.6 - Pain in thoracic spine; G89.29 - Other chronic pain Additional Impression: Kyphosis Kyphosis type: other Spinal region: unspecified Qualified Codes: M40.299 - Other kyphosis, site unspecified LUX OROZCO MD Aug 18, 2021 06:55
[2021-08-18] MEDS ORDERED: ACETAMINOPHEN 500 MG TABLET PO ONE (07:00)
[2021-08-18] MEDS ORDERED: LIDOCAINE (700MG/PATCH) PATCH. TD ONE (07:00)
[2021-08-18] MEDS ORDERED: MORPHINE SULFATE 4 MG/ML INJ. IM ONE (07:00)
[2021-08-18] MEDS ORDERED: oxyCODONE IR 5 MG TABLET PO ONE (07:15)
[2021-08-18] MEDS ORDERED: LISINOPRIL 10 MG TABLET PO ONE (07:45)
[2021-08-18 09:12] LABS: CALCIUM 9.4 mg/dL (8.5-10.1); CREATININE 0.9 mg/dL (0.6-1.0); GFR 59.5; POTASSIUM 4.2 mmol/L (3.5-5.1)
[2021-08-18 09:14] LABS: BASO % 0 % (0-3); EOS % 0 % (0-3); HEMATOCRIT 34.7 % (36.0-47.0); HEMOGLOBIN 11.9 g/dL (12.0-15.5); LYMPH # 0.1 x10^3/uL (1.0-4.8); LYMPH % 2 % (24-48); MEAN CORPUSCULAR HEMOGLOBIN 35 pg (25-35); MEAN CORPUSCULAR HGB CONC 34 g/dL (31-37); MEAN CORPUSCULAR VOLUME 103 fL (79-100); MONO # 0.5 x10^3/uL (0.0-1.1); MONO % 6 % (0-9); NEUT # 8.3 x10^3/uL (1.8-7.7); NEUT % 92 % (31-73); PLATELET COUNT 158 x10^3/uL (140-400); RED BLOOD COUNT 3.38 x10^6/uL (3.50-5.40)
[2021-08-18 09:18] LABS: ALBUMIN 4.2 g/dL (3.4-5.0); ALBUMIN/GLOBULIN RATIO 1.5 (1.0-1.7); C-REACTIVE PROTEIN 93.6 mg/L (0-3.3); TOTAL BILIRUBIN 0.6 mg/dL (0.2-1.0)
[2021-08-18 09:23] LABS: BACTERIA,URINE 0 /HPF (0-FEW); WBC,URINE 0 /HPF (0-4)
[2021-08-18 10:00] LABS: % BANDS 1 % (0-9); % LYMPHS 1 % (24-48); % MONOS 7 % (0-10); % SEGS 91 % (35-66); PLT ESTIMATE ADEQUATE (ADEQUATE)
[2021-08-18] MEDS ORDERED: MORPHINE SULFATE 4 MG/ML INJ. IVP ONE (10:30)
--- NOTE | 2021-08-18 10:30 | RAD ---
PQRS Compliance Statement: One or more of the following individualized dose reduction techniques were utilized for this examinat ion: 1. Automated exposure control 2. Adjustment of the mA and/or kV according to patient size 3. Use of iterative reconstruction technique CT CERVICAL SPINE WO, CT THORACIC SPINE WO Clinical Indication: Reason: acute on chronic neck and back pain / Comparison: CT abdomen and pelvis without contrast April 17, 2019. MR thoracic spine without contra st March 02, 2019. TECHNIQUE: Helical CT imaging of the cervical and thoracic spine is performed without IV contrast. Findings: There is grade 1 anterolisthesis of C3 on C4 and C4 on C5 and C7 on T1. There is severe disc space na rrowing and reactive endplate changes of C5/C6, C6/C7, and C7/T1. There is multilevel facet and uncov ertebral joint hypertrophy. There is no acute fracture. There is pannus formation posterior to the odontoid and there is ligamentum flavum redundancy that co mbine to produce moderate central canal stenosis posterior to the upper odontoid. Evaluation of individual disc spaces is limited due to axial images being significantly out of the pl ane of the disc space. Given this limitation, at C3/C4 there is a central disc protrusion that is par tially calcified. There is ligamentum flavum redundancy. There is overall no significant central holly l stenosis. There is small posterior disc osteophyte complexes at C5/C6, C6/C7, and C7/T1. No high-gr katy central canal stenosis is overall seen. There is probably neural foraminal narrowing of C5/C6, ev aluation is limited on axial images. There is old compression fracture at the superior endplate of the T6 vertebral body. There is 60% los s of height anteriorly. There is mild grade 1 anterolisthesis of T5 on T6. The thoracic spine alignme nt is otherwise maintained. The vertebral body heights are otherwise maintained. There is diffuse dem ineralization. There is vacuum disc phenomenon and large anterior endplate spurs of T11/T12. No signi ficant central canal stenosis is identified in the thoracic spine. No high-grade neural foraminal hussain rowing is identified. There is old compression fracture at the superior endplate of the L2 vertebral body. There is retropulsion superiorly resulting in no more than mild central canal stenosis. This co mpression fracture appears late subacute. It is new compared to February 2021. There is L1/L2 vacuum d isc phenomenon. There is grade 1 anterolisthesis of L2 on L3. There is bilateral dependent atelectasis. There is coronary artery disease. There are several round h yperdense lesions in the left kidney, similar to prior study and probably hyperdense cysts. IMPRESSION: 1. No acute fracture is seen. There is probably late subacute compression fracture of the L2 vertebr al body. The fracture is new compared February 2021. 2. There is moderate degenerative spondylosis of the cervical spine. 3. There is pannus posterior to the odontoid and ligamentum flavum redundancy resulting in moderate central canal stenosis. 4. Old compression fracture of the T6 vertebral body. Electronically signed by: Gamaliel Arauz MD (08/18/2021 10:28 AM) [id number]
[2021-08-18] MEDS ORDERED: ONDANSETRON PF 4 MG/2 ML VIAL. IVP PRN (11:30)
[2021-08-18] MEDS ORDERED: MORPHINE SULFATE 2 MG/ML INJ. IVP PRN (11:30)
[2021-08-18 13:36] VITALS: BP 195/99
[2021-08-18] MEDS ORDERED: HYDR-2759 (13:37)
[2021-08-18] MEDS ORDERED: HYDROmorphone 2 MG/ML INJ. IVP PRN (14:00)
[2021-08-18] MEDS ORDERED: KETOROLAC 15 MG/ML VIAL. IVP ONE (14:00)
[2021-08-18 15:00] VITALS: BP 155/80
[2021-08-18] MEDS: GABAPENTIN 300 MG CAPSULE. PO SCH ×2 (15:00→20:55)
[2021-08-18] MEDS: LISINOPRIL 10 MG TABLET PO SCH (15:00)
[2021-08-18] MEDS: ASPIRIN CHEWABLE 81 MG TABLET. PO SCH (15:00)
[2021-08-18 19:00] VITALS: BP 165/83
--- NOTE | 2021-08-18 20:13 | PDOC1 ---
History and Physical Date of Admission Date of Admission DATE: 08/18/21 TIME: 20:08 Source Source: Chart review, Patient History of Present Illness History of Present Illness Ms. Trejo is an 85-year-old female with a history of back pain, presentes with worse pain, confusion, was agitated before I saw her and I ordered IV pain meds with good benefit, and she was more calm, but confused. Unsure if demented or pain or pain meds made mental status worse normally takes hydro at HS for pain. Past Medical History Past Medical History hypertension, diastolic heart failure, GERD chronic severe kyphosis. Cardiovascular: HTN Musculoskeletal: Osteoarthritis Renal/: No pertinent hx Family History Family History: Hypertension Social History Smoke: # pack years ALCOHOL: none Drugs: None Current Problem List Problem List Problems Medical Problems: (1) Chronic thoracic back pain Status: Acute (2) Kyphosis Status: Acute Current Medications Current Medications Current Medications Morphine Sulfate (Morphine Sulfate) 4 mg 1X ONCE IM Last administered on 08/18/21at 06:38; Start 08/18/21 at 07:00; Stop 08/18/21 at 07:01; Status DC Acetaminophen (Tylenol) 1,000 mg 1X ONCE PO Last administered on 08/18/21at 06:34; Start 08/18/21 at 07:00; Stop 08/18/21 at 07:01; Status DC Lidocaine (Lidoderm) 1 patch 1X ONCE TD Last administered on 08/18/21at 06:36; Start 08/18/21 at 07:00; Stop 08/18/21 at 07:01; Status DC Oxycodone HCl (Roxicodone) 5 mg 1X ONCE PO Last administered on 08/18/21at 07:34; Start 08/18/21 at 07:15; Stop 08/18/21 at 07:16; Status DC Lisinopril (Prinivil) 20 mg 1X ONCE PO Last administered on 08/18/21at 07:58; Start 08/18/21 at 07:45; Stop 08/18/21 at 07:50; Status DC Morphine Sulfate (Morphine Sulfate) 4 mg 1X ONCE IVP Last administered on 08/18/21at 10:28; Start 08/18/21 at 10:30; Stop 08/18/21 at 10:31; Status DC Ondansetron HCl (Zofran) 4 mg PRN Q8HRS PRN IVP NAUSEA/VOMITING Last administered on 08/18/21at 14:13; Start 08/18/21 at 11:30; Stop 08/19/21 at 11:29 Morphine Sulfate (Morphine Sulfate) 2 mg PRN Q2HR PRN IVP PAIN; Start 08/18/21 at 11:30; Stop 08/18/21 at 13:48; Status DC Hydromorphone HCl (Dilaudid) 0.8 mg PRN Q4HRS PRN IVP PAIN Last administered on 08/18/21at 14:23; Start 08/18/21 at 14:00 Ketorolac Tromethamine (Toradol 15mg Vial) 15 mg 1X ONCE IVP Last administered on 08/18/21at 14:13; Start 08/18/21 at 14:00; Stop 08/18/21 at 14:01; Status DC Oxycodone/ Acetaminophen (Percocet 5/325) 1 tab PRN Q4HRS PRN PO PAIN; Start 08/18/21 at 14:00 Aspirin (Aspirin Chewable) 81 mg DAILY PO ; Start 08/18/21 at 15:00 Atorvastatin Calcium (Lipitor) 20 mg QHS PO ; Start 08/18/21 at 21:00 Gabapentin (Neurontin) 300 mg TID PO ; Start 08/18/21 at 15:00 Lisinopril (Prinivil) 10 mg DAILY PO ; Start 08/18/21 at 15:00 Active Scripts Active Doxycycline Hyclate 100 Mg Tablet 100 Mg PO BID 1 Days Atorvastatin Calcium 20 Mg Tablet 20 Mg PO QHS 30 Days Reported Hydrocodone-Acetamin 5-325 mg (Hydrocodone/Acetaminophen) 1 Each Tablet 5 Mg DAILY Acetaminophen 500 Mg Tablet 1,000 Mg PO PRN Q6HRS PRN Prolia (Denosumab) 60 Mg/1 Ml Disp.syrin 60 Mg SQ EVERY 6 MONTHS Colestipol Hcl 1 Gm Tablet 1 Gm PO DAILY Vitamin B12 (Cyanocobalamin (Vitamin B-12)) 2,500 Mcg Tablet 1 Tab PO DAILY 30 Days Omeprazole 20 Mg Capsule. 1 Cap PO DAILY Gabapentin (Gabapentin) 300 Mg Capsule 300 Mg PO TID Furosemide 40 Mg Tablet 1 Tab PO DAILY Klor-Con 10 (Potassium Chloride) 10 Meq Tablet.er 1 Tab PO DAILY Aspirin 81 Mg Tab.chew 1 Tab PO DAILY Calcium 600 + D Tablet (Calcium Carbonate/Vitamin D3) 1 Each Tablet 1 Each PO DAILY Multi Vitamin Daily (Multivitamin) 1 Each Tablet 1 Each PO DAILY Lisinopril 10 Mg Tablet 10 Mg PO DAILY Advil (Ibuprofen) 200 Mg Tablet 200 Mg PO PRN Q4HRS PRN Allergies Allergies: Coded Allergies: celecoxib (Verified Allergy, Intermediate, 12/14/17) ROS Review of System unable, demented, confused, PSYCHOLOGICAL ROS: YES: Anxiety Physical Exam General: Alert, Cooperative, mild distress, Other (not orienented, 1/3) HEENT: Atraumatic, PERRLA Lungs: Clear to auscultation Heart: S1S2, no jug vein distention, irregularly irregular Extremities: Normal pulses Skin: No rashes, No significant lesion Neuro: Normal speech, Normal tone, Sensation intact Psych/Mental Status: Mental status NL, Mood NL Vitals Vitals Vital Signs Date Time Temp Pulse Resp B/P (MAP) Pulse Ox O2 Delivery O2 Flow Rate FiO2 08/18/21 15:00 98.4 95 16 155/80 (105) 92 98.4 08/18/21 14:53 Room Air Labs Labs Laboratory Tests Test 08/18/21 08:45 08/18/21 08:56 Urine Collection Type Unknown Urine Color (Auto) Colorless Urine Turbidity Clear Urine pH (Auto) 7.5 (<5.0-8.0) Urine Specific [place] 1.010 (1.000-1.030) Urine Protein (Auto) Negative mg/dL (Negative) Urine Glucose (Auto)(UA) Negative mg/dL (Negative) Urine Ketones (Auto) 10 mg/dL (Negative) Urine Blood (Auto) Negative (Negative) Urine Nitrite Negative (Negative) Urine Bilirubin (Auto) Negative (Negative) Urine Urobilinogen (Auto) Normal mg/dL (Normal) Urine Leukocyte Esterase (Auto) Negative (Negative) Urine RBC 1-2 /HPF (0-2) Urine WBC 0 /HPF (0-4) Urine Bacteria 0 /HPF (0-FEW) White Blood Count 9.0 x10^3/uL (4.0-11.0) Red Blood Count 3.38 x10^6/uL (3.50-5.40) Hemoglobin 11.9 g/dL (12.0-15.5) Hematocrit 34.7 % (36.0-47.0) Mean Corpuscular Volume 103 fL (79-100) Mean Corpuscular Hemoglobin 35 pg (25-35) Mean Corpuscular Hemoglobin Concent 34 g/dL (31-37) Red Cell Distribution Width 14.0 % (11.5-14.5) Platelet Count 158 x10^3/uL (140-400) Neutrophils (%) (Auto) 92 % (31-73) Lymphocytes (%) (Auto) 2 % (24-48) Monocytes (%) (Auto) 6 % (0-9) Eosinophils (%) (Auto) 0 % (0-3) Basophils (%) (Auto) 0 % (0-3) Neutrophils # (Auto) 8.3 x10^3/uL (1.8-7.7) Lymphocytes # (Auto) 0.1 x10^3/uL (1.0-4.8) Monocytes # (Auto) 0.5 x10^3/uL (0.0-1.1) Eosinophils # (Auto) 0.0 x10^3/uL (0.0-0.7) Basophils # (Auto) 0.0 x10^3/uL (0.0-0.2) Segmented Neutrophils % 91 % (35-66) Band Neutrophils % 1 % (0-9) Lymphocytes % 1 % (24-48) Monocytes % 7 % (0-10) Platelet Estimate Adequate (ADEQUATE) Erythrocyte Sedimentation Rate 30 (0-25) Sodium Level 130 mmol/L (136-145) Potassium Level 4.2 mmol/L (3.5-5.1) Chloride Level 96 mmol/L (98-107) Carbon Dioxide Level 26 mmol/L (21-32) Anion Gap 8 (6-14) Blood Urea Nitrogen 17 mg/dL (7-20) Creatinine 0.9 mg/dL (0.6-1.0) Estimated GFR (Cockcroft-Gault) 59.5 BUN/Creatinine Ratio 19 (6-20) Glucose Level 131 mg/dL (70-99) Calcium Level 9.4 mg/dL (8.5-10.1) Total Bilirubin 0.6 mg/dL (0.2-1.0) Aspartate Amino Transf (AST/SGOT) 27 U/L (15-37) Alanine Aminotransferase (ALT/SGPT) 31 U/L (14-59) Alkaline Phosphatase 67 U/L (46-116) Troponin I High Sensitivity 14 ng/L (4-50) C-Reactive Protein, Quantitative 93.6 mg/L (0-3.3) Total Protein 7.0 g/dL (6.4-8.2) Albumin 4.2 g/dL (3.4-5.0) Albumin/Globulin Ratio 1.5 (1.0-1.7) Laboratory Tests Test 08/18/21 08:45 08/18/21 08:56 Urine Collection Type Unknown Urine Color (Auto) Colorless Urine Turbidity Clear Urine pH (Auto) 7.5 (<5.0-8.0) Urine Specific [place] 1.010 (1.000-1.030) Urine Protein (Auto) Negative mg/dL (Negative) Urine Glucose (Auto)(UA) Negative mg/dL (Negative) Urine Ketones (Auto) 10 mg/dL (Negative) Urine Blood (Auto) Negative (Negative) Urine Nitrite Negative (Negative) Urine Bilirubin (Auto) Negative (Negative) Urine Urobilinogen (Auto) Normal mg/dL (Normal) Urine Leukocyte Esterase (Auto) Negative (Negative) Urine RBC 1-2 /HPF (0-2) Urine WBC 0 /HPF (0-4) Urine Bacteria 0 /HPF (0-FEW) White Blood Count 9.0 x10^3/uL (4.0-11.0) Red Blood Count 3.38 x10^6/uL (3.50-5.40) Hemoglobin 11.9 g/dL (12.0-15.5) Hematocrit 34.7 % (36.0-47.0) Mean Corpuscular Volume 103 fL (79-100) Mean Corpuscular Hemoglobin 35 pg (25-35) Mean Corpuscular Hemoglobin Concent 34 g/dL (31-37) Red Cell Distribution Width 14.0 % (11.5-14.5) Platelet Count 158 x10^3/uL (140-400) Neutrophils (%) (Auto) 92 % (31-73) Lymphocytes (%) (Auto) 2 % (24-48) Monocytes (%) (Auto) 6 % (0-9) Eosinophils (%) (Auto) 0 % (0-3) Basophils (%) (Auto) 0 % (0-3) Neutrophils # (Auto) 8.3 x10^3/uL (1.8-7.7) Lymphocytes # (Auto) 0.1 x10^3/uL (1.0-4.8) Monocytes # (Auto) 0.5 x10^3/uL (0.0-1.1) Eosinophils # (Auto) 0.0 x10^3/uL (0.0-0.7) Basophils # (Auto) 0.0 x10^3/uL (0.0-0.2) Segmented Neutrophils % 91 % (35-66) Band Neutrophils % 1 % (0-9) Lymphocytes % 1 % (24-48) Monocytes % 7 % (0-10) Platelet Estimate Adequate (ADEQUATE) Erythrocyte Sedimentation Rate 30 (0-25) Sodium Level 130 mmol/L (136-145) Potassium Level 4.2 mmol/L (3.5-5.1) Chloride Level 96 mmol/L (98-107) Carbon Dioxide Level 26 mmol/L (21-32) Anion Gap 8 (6-14) Blood Urea Nitrogen 17 mg/dL (7-20) Creatinine 0.9 mg/dL (0.6-1.0) Estimated GFR (Cockcroft-Gault) 59.5 BUN/Creatinine Ratio 19 (6-20) Glucose Level 131 mg/dL (70-99) Calcium Level 9.4 mg/dL (8.5-10.1) Total Bilirubin 0.6 mg/dL (0.2-1.0) Aspartate Amino Transf (AST/SGOT) 27 U/L (15-37) Alanine Aminotransferase (ALT/SGPT) 31 U/L (14-59) Alkaline Phosphatase 67 U/L (46-116) Troponin I High Sensitivity 14 ng/L (4-50) C-Reactive Protein, Quantitative 93.6 mg/L (0-3.3) Total Protein 7.0 g/dL (6.4-8.2) Albumin 4.2 g/dL (3.4-5.0) Albumin/Globulin Ratio 1.5 (1.0-1.7) VTE Prophylaxis Ordered VTE Prophylaxis Devices: Yes VTE Pharmacological Prophylaxi: Yes Assessment/Plan Assessment/Plan acute upper back and lower neck pain, better with pain meds acute encephalopathy dementia weakness B12 vitamin deficiency, large MCV, b12 on home med list, will give IM hypertension hyperlipids neurosurg eval, PT and OT if cleared, Justifications for Admission Other Justification Generalized weakness and lower extremity cellulitis DELIA HEWITT MD Aug 18, 2021 20:13
[2021-08-18] MEDS ORDERED: CYANOCOBALAMIN (VITAMIN B-12) 1,000 MCG/ML VIAL. IM ONE (20:15)
[2021-08-18] MEDS: HEPARIN for SUB-Q USE 5,000 UNIT/ML VIAL. SQ SCH (21:00)
[2021-08-18] MEDS ORDERED: ATORVASTATIN CALCIUM 20 MG TABLET PO SCH (21:00)
[2021-08-18 23:00] VITALS: BP 173/73
[2021-08-19] MEDS: oxyCODONE/APAP 5/325 1 TAB TABLET PO PRN ×3 (00:29→13:36)
[2021-08-19] MEDS ORDERED: ACETAMINOPHEN 325 MG TABLET. PO PRN (00:30)
--- NOTE | 2021-08-19 00:41 | EKG ---
[facility] [address] [place] [address] Test Date: 2021-08-18 Test Time: 09:05:07 Pat Name: JUDY SEBASTIAN Department: Room: [facility] Gender: F Dining Room Maid: : 1935 Requested By: LUX OROZCO Order Number: [id number] Reading MD: Lionel Escobar Measurements Intervals [place] Rate: 87 P: 54 [place]: 142 QRS: 18 QRSD: 92 T: 57 QT: 354 QTc: 427 Interpretive Statements SINUS RHYTHM LEFT ATRIAL ABNORMALITY Electronically Signed On 08-23-2021 14:04:46 CDT by Lionel Escobar
[2021-08-19 01:07] LABS: BACTERIA,URINE 0 /HPF (0-FEW)
[2021-08-19 03:00] VITALS: BP 161/74
[2021-08-19 05:59] LABS: BASO % 0 % (0-3); EOS % 0 % (0-3); HEMATOCRIT 30.9 % (36.0-47.0); LYMPH # 0.3 x10^3/uL (1.0-4.8); LYMPH % 4 % (24-48); MEAN CORPUSCULAR HEMOGLOBIN 36 pg (25-35); MEAN CORPUSCULAR HGB CONC 36 g/dL (31-37); MEAN CORPUSCULAR VOLUME 101 fL (79-100); MONO # 0.6 x10^3/uL (0.0-1.1); MONO % 7 % (0-9); NEUT # 7.7 x10^3/uL (1.8-7.7); NEUT % 90 % (31-73); PLATELET COUNT 151 x10^3/uL (140-400); RED BLOOD COUNT 3.06 x10^6/uL (3.50-5.40); RED CELL DISTRIBUTION WIDTH 13.7 % (11.5-14.5); WHITE BLOOD COUNT 8.6 x10^3/uL (4.0-11.0)
[2021-08-19 06:16] LABS: CALCIUM 9.1 mg/dL (8.5-10.1); CREATININE 0.7 mg/dL (0.6-1.0); GFR 79.5
[2021-08-19 07:00] VITALS: BP 146/71
[2021-08-19] MEDS ORDERED: FOLIC/VIT B COMP W-C (RENAL) TABLET. PO SCH (09:00)
[2021-08-19] MEDS: ASPIRIN CHEWABLE 81 MG TABLET. PO SCH (09:05)
[2021-08-19] MEDS: GABAPENTIN 300 MG CAPSULE. PO SCH ×2 (09:09→13:36)
[2021-08-19] MEDS: LISINOPRIL 10 MG TABLET PO SCH (09:09)
[2021-08-19] MEDS: HEPARIN for SUB-Q USE 5,000 UNIT/ML VIAL. SQ SCH (09:15)
[2021-08-19 11:00] VITALS: BP 130/67
--- NOTE | 2021-08-19 12:47 | PDOC ---
[employer] PROGRESS NOTE Date of Service DOS: DATE: 08/19/21 TIME: 12:34 Chief Complaint Chief Complaint Acute on chronic back pain Bilateral shoulder pain - no visual symptoms, elevated inflammatory markers indicative of polymyalgia rheumatica. Will initiate 20 mg of prednisone daily. Fall at home -she thinks is due to her new walker. Will need therapy evaluation prior to discharge, she would be an unsafe discharge she exhibits gait instability. May need skilled services on discharge. Hypertension Chronic diastolic congestive heart failure GERD Osteoarthritis Compression fracture of the L2 vertebral body. The fracture is new compared February 2021. She thinks she is aware of this already and does not want any interventions. No lower back pain at this time. Degenerative spondylosis of the cervical spine. Old compression fracture of the T6 vertebral body. 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 Coyne is an 85-year-old female with past medical history of chronic back pain, hypertension, chronic diastolic congestive heart failure, GERD, osteoarthritis who presented to the ED complaining worsening back pain. She notes base of her neck and midthoracic back as well as lumbar are significantly worse than baseline not managed by her home hydrocodone. No recent travel or sick contacts, no fevers, nausea or vomiting, headache, upper respiratory congestion/rhinorrhea, cough, sore throat, shortness of breath or chest pain of any kind, abdominal pain of any kind, flank pain, dysuria, hematuria, polyuria or oliguria, changes in bowel habits, pain or swelling to arms or legs. No loss of bowel or bladder control, saddle anesthesia, new lower extremity weakness, numbness or tingling, new urinary retention. CT thoracic spine and cervical spine on my interpretation compression fracture of L2 vertebral body and degenerative spondylosis of the cervical spine and old T6 compression fracture. 08/19: Complaining of 9 out of 10 bilateral shoulder pain as well as neck pain radiating into her arms. CRP 93 ESR 30. Will start corticosteroids for likely diagnosis of polymyalgia rheumatica. Awaiting evaluation by physical medicine rehabilitation and physical therapy. Vitals/I&O Vitals/I&O: Vital Signs Date Time Temp Pulse Resp B/P (MAP) Pulse Ox O2 Delivery O2 Flow Rate FiO2 08/19/21 11:00 98.3 85 18 130/67 (88) 93 Nasal Cannula 2.0 98.3 I & O 08/18/21 08/18/21 08/19/21 15:00 23:00 07:00 Intake Total 220 ml Output Total 1150 ml Balance 220 ml -1150 ml Physical Exam General: Alert, Cooperative, mild distress, Other (not orienented, 1/3) Lungs: Clear Extremities: Normal pulses Skin: No rashes, No significant lesion Labs Labs: Laboratory Tests Test 08/19/21 00:55 08/19/21 05:15 Urine Collection Type Unknown Urine Color (Auto) Colorless Urine Turbidity Clear Urine pH (Auto) 7.5 (<5.0-8.0) Urine Specific [place] 1.009 (1.000-1.030) Urine Protein (Auto) Negative mg/dL (Negative) Urine Glucose (Auto)(UA) Negative mg/dL (Negative) Urine Ketones (Auto) 10 mg/dL (Negative) Urine Blood (Auto) Negative (Negative) Urine Nitrite (Auto) Negative (Negative) Urine Bilirubin (Auto) Negative (Negative) Urine Urobilinogen (Auto) Normal mg/dL (Normal) Urine Leukocyte Esterase (Auto) Negative (Negative) Urine RBC 3-5 /HPF (0-2) Urine WBC 1-4 /HPF (0-4) Urine Squamous Epithelial Cells Occ /LPF Urine Bacteria 0 /HPF (0-FEW) White Blood Count 8.6 x10^3/uL (4.0-11.0) Red Blood Count 3.06 x10^6/uL (3.50-5.40) Hemoglobin 11.0 g/dL (12.0-15.5) Hematocrit 30.9 % (36.0-47.0) Mean Corpuscular Volume 101 fL (79-100) Mean Corpuscular Hemoglobin 36 pg (25-35) Mean Corpuscular Hemoglobin Concent 36 g/dL (31-37) Red Cell Distribution Width 13.7 % (11.5-14.5) Platelet Count 151 x10^3/uL (140-400) Neutrophils (%) (Auto) 90 % (31-73) Lymphocytes (%) (Auto) 4 % (24-48) Monocytes (%) (Auto) 7 % (0-9) Eosinophils (%) (Auto) 0 % (0-3) Basophils (%) (Auto) 0 % (0-3) Neutrophils # (Auto) 7.7 x10^3/uL (1.8-7.7) Lymphocytes # (Auto) 0.3 x10^3/uL (1.0-4.8) Monocytes # (Auto) 0.6 x10^3/uL (0.0-1.1) Eosinophils # (Auto) 0.0 x10^3/uL (0.0-0.7) Basophils # (Auto) 0.0 x10^3/uL (0.0-0.2) Sodium Level 129 mmol/L (136-145) Potassium Level 4.0 mmol/L (3.5-5.1) Chloride Level 94 mmol/L (98-107) Carbon Dioxide Level 26 mmol/L (21-32) Anion Gap 9 (6-14) Blood Urea Nitrogen 11 mg/dL (7-20) Creatinine 0.7 mg/dL (0.6-1.0) Estimated GFR (Cockcroft-Gault) 79.5 Glucose Level 95 mg/dL (70-99) Calcium Level 9.1 mg/dL (8.5-10.1) Assessment and Plan Assessmemt and Plan Problems Medical Problems: (1) Chronic thoracic back pain Status: Acute (2) Kyphosis Status: Acute Comment Review of Relevant I have reviewed the following items pete (where applicable) has been applied. Medications: Current Medications Medications (Trade) Dose Ordered Sig/Mason Route PRN Reason Start Time Stop Time Status Last Admin Dose Admin Hydromorphone HCl (Dilaudid) 0.8 mg PRN Q4HRS PRN IVP PAIN 08/18/21 14:00 08/18/21 14:23 Ketorolac Tromethamine (Toradol 15mg Vial) 15 mg 1X ONCE IVP 08/18/21 14:00 08/18/21 14:01 DC 08/18/21 14:13 Oxycodone/ Acetaminophen (Percocet 5/325) 1 tab PRN Q4HRS PRN PO MODERATE PAIN, SEVERE PAIN 08/18/21 14:00 08/19/21 06:19 Aspirin (Aspirin Chewable) 81 mg DAILY PO 08/18/21 15:00 08/19/21 09:05 Atorvastatin Calcium (Lipitor) 20 mg QHS PO 08/18/21 21:00 08/18/21 20:55 Gabapentin (Neurontin) 300 mg TID PO 08/18/21 15:00 08/19/21 09:09 Lisinopril (Prinivil) 10 mg DAILY PO 08/18/21 15:00 08/19/21 09:09 Cyanocobalamin (Vitamin B-12 Inj) 1,000 mcg 1X ONCE IM 08/18/21 20:15 08/18/21 20:18 DC 08/18/21 20:56 Vitamin B Complex/ Vitamin C (Nilsa-Roverto) 1 tab DAILY PO 08/19/21 09:00 08/19/21 09:05 Heparin Sodium (Porcine) (Heparin Sodium) 5,000 unit Q12HR SQ 08/18/21 21:00 08/19/21 09:15 Amlodipine Besylate (Norvasc) 2.5 mg DAILY PO 08/19/21 00:30 08/19/21 09:11 Acetaminophen (Tylenol) 325 mg PRN Q6HRS PRN PO MILD PAIN / TEMP > 100.3'F 08/19/21 00:30 08/19/21 09:16 Justifications for Admission Other Justification Generalized weakness and lower extremity cellulitis MANDEEP ARROYO MD Aug 19, 2021 12:47
[2021-08-19] MEDS ORDERED: tiZANidine 4 MG TABLET. PO PRN (13:00)
[2021-08-19] MEDS ORDERED: predniSONE 20 MG TABLET PO SCH (13:00)
[2021-08-19 15:00] VITALS: BP 124/69
[2021-08-19] MEDS ORDERED: PRED-220 PO (15:30)
--- NOTE | 2021-08-19 15:33 | SNU/HH DC ---
DISCHARGE WITH HOME HEALTH DISCHARGE INFORMATION: Discharge Date: Aug 19, 2021 Final Diagnosis: Problems Medical Problems: (1) Chronic thoracic back pain Status: Acute (2) Kyphosis Status: Acute Condition on Discharge: Stable CODE STATUS: Code Status: Full HOME HEALTH: Face to Face: I certify this patient is under my care and that I, or a nurse practitioner or physician's photographer assistant working with me, had a face to face encounter that meets the physician face to face encounter requirements with this patient on 08/19/2021. Medical Complications: DJD, Falls, HTN, Other (Polymyalgia rheumatica) Retirement For: Assess & Educate Safety, Assess/Skilled Observatio, Medication Management, Pain Management RN For Eval/Treatment: Yes Physical Therapy For: Evalulation/Treatment Occupational Therapy For: Evaluation/Treatment Pt Meets Homebound Status: Unsteady balance w/ amb,, Fatigue w/ amb. POST DISCHARGE ORDERS: Activity Instructions for Disc: Activity as tolerated Weight Bearing Status after Di: No restrictions DIET AFTER DISCHARGE: Regular CHECKS AFTER DISCHARGE: Checks after discharge: Check blood press - daily, Check your Temp as needed, Weigh Yourself Daily FOLLOW-UP: DC TO SNF LABS: Sed rate, CRP every 2 weeks Additional Instructions: Follow up in 20 days to have sed rate and CRP checked for polymyalgia rheumatica follow up TREATMENT/EQUIPMENT ORDERS: Adaptive Equipment Issued: Front wheeled walker CERTIFICATION STATEMENT: Certification Statement: Certification Statement: Based on the above finding, I certify that this patient is confined to the home and needs intermittent fci care, physical therapy and/or speech therapy, or continues to need occupational therapy.~ This patient is under my care, and I have initiated the establishment of the plan of care.~ This patient will be followed by myself or a community physician who will periodically review the plan of care. Home Meds Active Scripts Prednisone (PREDNISONE ) 10 Mg Tablet, 10 MG PO UD for PREDNISONE TAPER for 20 Days, #30 TAB 0 Refills 2 tabs PO daily for 10 days Then 1 tablet by mouth daily for 10 days. Then ask for labs for CRP and sed rate Prov:MANDEEP ARROYO MD 08/19/21 Atorvastatin Calcium (ATORVASTATIN CALCIUM) 20 Mg Tablet, 20 MG PO QHS for CVA for 30 Days, #30 TAB Prov:IGNACIO NUÑEZ MD 06/15/19 Reported Medications Hydrocodone/Acetaminophen (Hydrocodone-Acetamin 5-325 mg) 1 Each Tablet, 5 MG DAILY for pain 08/18/21 Acetaminophen (ACETAMINOPHEN) 500 Mg Tablet, 1000 MG PO PRN Q6HRS PRN for PAIN, TAB 03/11/21 Denosumab (PROLIA) 60 Mg/1 Ml Disp.syrin, 60 MG SQ every 6 months for osteoporosis, DIS.SYR 11/02/19 Colestipol Hcl (COLESTIPOL HCL) 1 Gm Tablet, 1 GM PO DAILY for unk, TAB 10/19/19 Cyanocobalamin (Vitamin B-12) (Vitamin B12) 2,500 Mcg Tablet, 1 TAB PO DAILY for supp for 30 Days, #30 TAB 0 Refills 10/19/19 Omeprazole (OMEPRAZOLE) 20 Mg Capsule.dr, 1 CAP PO DAILY for gerd, #30 CAP 5 Refills 10/19/19 Gabapentin (GABAPENTIN ) 300 Mg Capsule, 300 MG PO TID for NEUROGENIC PAIN, CAP 03/30/19 Aspirin (ASPIRIN) 81 Mg Tab.chew, 1 TAB PO DAILY, #30 TAB 3 Refills 02/09/15 Calcium Carbonate/Vitamin D3 (Calcium 600 + D Tablet) 1 Each Tablet, 1 EACH PO DAILY 02/09/15 Multivitamin (MULTI VITAMIN DAILY) 1 Each Tablet, 1 EACH PO DAILY 02/09/15 Lisinopril (LISINOPRIL) 10 Mg Tablet, 10 MG PO DAILY for FOR HYPERTENSION, #30 TAB 0 Refills 02/09/15 Discontinued Reported Medications Furosemide (FUROSEMIDE) 40 Mg Tablet, 1 TAB PO DAILY, #30 TAB 5 Refills 12/14/17 Potassium Chloride (KLOR-CON 10) 10 Meq Tablet.er, 1 TAB PO DAILY, #30 TAB 5 Refills 08/31/17 Ibuprofen (ADVIL) 200 Mg Tablet, 200 MG PO PRN Q4HRS PRN for PAIN 02/07/15 Discontinued Scripts Doxycycline Hyclate (DOXYCYCLINE HYCLATE) 100 Mg Tablet, 100 MG PO BID for cellulitis of the LLE for 1 Day, #2 TAB Prov:KALI SWANSON MD 03/14/21 MANDEEP ARROYO MD Aug 19, 2021 15:33
--- NOTE | 2021-08-19 15:35 | PDOC3 ---
Discharge Summary Visit Information Date of Admission: Aug 18, 2021 Date of Discharge: Aug 19, 2021 Admitting Diagnosis: Intractable neck and shoulder pain Final Diagnosis Problems Medical Problems: (1) Chronic thoracic back pain Status: Acute (2) Kyphosis Status: Acute Brief Hospital Course Allergies Allergies Coded Allergies Type Severity Reaction Last Updated Verified celecoxib Allergy Intermediate 12/14/17 Yes Vital Signs Vital Signs Date Time Temp Pulse Resp B/P (MAP) Pulse Ox O2 Delivery O2 Flow Rate FiO2 08/19/21 13:36 20 08/19/21 11:00 98.3 85 130/67 (88) 93 Nasal Cannula 2.0 98.3 Lab Results Laboratory Tests Test 08/18/21 08:45 08/18/21 08:56 08/19/21 00:55 08/19/21 05:15 Urine Collection Type Unknown Unknown Urine Color (Auto) Colorless Colorless Urine Turbidity Clear Clear Urine pH (Auto) 7.5 (<5.0-8.0) 7.5 (<5.0-8.0) Urine Specific Blackburn 1.010 (1.000-1.030) 1.009 (1.000-1.030) Urine Protein (Auto) Negative mg/dL (Negative) Negative mg/dL (Negative) Urine Glucose (Auto)(UA) Negative mg/dL (Negative) Negative mg/dL (Negative) Urine Ketones (Auto) 10 mg/dL (Negative) 10 mg/dL (Negative) Urine Blood (Auto) Negative (Negative) Negative (Negative) Urine Nitrite Negative (Negative) Urine Bilirubin (Auto) Negative (Negative) Negative (Negative) Urine Urobilinogen (Auto) Normal mg/dL (Normal) Normal mg/dL (Normal) Urine Leukocyte Esterase (Auto) Negative (Negative) Negative (Negative) Urine RBC 1-2 /HPF (0-2) 3-5 /HPF (0-2) Urine WBC 0 /HPF (0-4) 1-4 /HPF (0-4) Urine Bacteria 0 /HPF (0-FEW) 0 /HPF (0-FEW) White Blood Count 9.0 x10^3/uL (4.0-11.0) 8.6 x10^3/uL (4.0-11.0) Red Blood Count 3.38 x10^6/uL (3.50-5.40) 3.06 x10^6/uL (3.50-5.40) Hemoglobin 11.9 g/dL (12.0-15.5) 11.0 g/dL (12.0-15.5) Hematocrit 34.7 % (36.0-47.0) 30.9 % (36.0-47.0) Mean Corpuscular Volume 103 fL (79-100) 101 fL (79-100) Mean Corpuscular Hemoglobin 35 pg (25-35) 36 pg (25-35) Mean Corpuscular Hemoglobin Concent 34 g/dL (31-37) 36 g/dL (31-37) Red Cell Distribution Width 14.0 % (11.5-14.5) 13.7 % (11.5-14.5) Platelet Count 158 x10^3/uL (140-400) 151 x10^3/uL (140-400) Neutrophils (%) (Auto) 92 % (31-73) 90 % (31-73) Lymphocytes (%) (Auto) 2 % (24-48) 4 % (24-48) Monocytes (%) (Auto) 6 % (0-9) 7 % (0-9) Eosinophils (%) (Auto) 0 % (0-3) 0 % (0-3) Basophils (%) (Auto) 0 % (0-3) 0 % (0-3) Neutrophils # (Auto) 8.3 x10^3/uL (1.8-7.7) 7.7 x10^3/uL (1.8-7.7) Lymphocytes # (Auto) 0.1 x10^3/uL (1.0-4.8) 0.3 x10^3/uL (1.0-4.8) Monocytes # (Auto) 0.5 x10^3/uL (0.0-1.1) 0.6 x10^3/uL (0.0-1.1) Eosinophils # (Auto) 0.0 x10^3/uL (0.0-0.7) 0.0 x10^3/uL (0.0-0.7) Basophils # (Auto) 0.0 x10^3/uL (0.0-0.2) 0.0 x10^3/uL (0.0-0.2) Segmented Neutrophils % 91 % (35-66) Band Neutrophils % 1 % (0-9) Lymphocytes % 1 % (24-48) Monocytes % 7 % (0-10) Platelet Estimate Adequate (ADEQUATE) Erythrocyte Sedimentation Rate 30 (0-25) Sodium Level 130 mmol/L (136-145) 129 mmol/L (136-145) Potassium Level 4.2 mmol/L (3.5-5.1) 4.0 mmol/L (3.5-5.1) Chloride Level 96 mmol/L (98-107) 94 mmol/L (98-107) Carbon Dioxide Level 26 mmol/L (21-32) 26 mmol/L (21-32) Anion Gap 8 (6-14) 9 (6-14) Blood Urea Nitrogen 17 mg/dL (7-20) 11 mg/dL (7-20) Creatinine 0.9 mg/dL (0.6-1.0) 0.7 mg/dL (0.6-1.0) Estimated GFR (Cockcroft-Gault) 59.5 79.5 BUN/Creatinine Ratio 19 (6-20) Glucose Level 131 mg/dL (70-99) 95 mg/dL (70-99) Calcium Level 9.4 mg/dL (8.5-10.1) 9.1 mg/dL (8.5-10.1) Total Bilirubin 0.6 mg/dL (0.2-1.0) Aspartate Amino Transf (AST/SGOT) 27 U/L (15-37) Alanine Aminotransferase (ALT/SGPT) 31 U/L (14-59) Alkaline Phosphatase 67 U/L (46-116) Troponin I High Sensitivity 14 ng/L (4-50) C-Reactive Protein, Quantitative 93.6 mg/L (0-3.3) Total Protein 7.0 g/dL (6.4-8.2) Albumin 4.2 g/dL (3.4-5.0) Albumin/Globulin Ratio 1.5 (1.0-1.7) Urine Nitrite (Auto) Negative (Negative) Urine Squamous Epithelial Cells Occ /LPF Laboratory Tests Test 08/19/21 00:55 08/19/21 05:15 Urine Collection Type Unknown Urine Color (Auto) Colorless Urine Turbidity Clear Urine pH (Auto) 7.5 (<5.0-8.0) Urine Specific Blackburn 1.009 (1.000-1.030) Urine Protein (Auto) Negative mg/dL (Negative) Urine Glucose (Auto)(UA) Negative mg/dL (Negative) Urine Ketones (Auto) 10 mg/dL (Negative) Urine Blood (Auto) Negative (Negative) Urine Nitrite (Auto) Negative (Negative) Urine Bilirubin (Auto) Negative (Negative) Urine Urobilinogen (Auto) Normal mg/dL (Normal) Urine Leukocyte Esterase (Auto) Negative (Negative) Urine RBC 3-5 /HPF (0-2) Urine WBC 1-4 /HPF (0-4) Urine Squamous Epithelial Cells Occ /LPF Urine Bacteria 0 /HPF (0-FEW) White Blood Count 8.6 x10^3/uL (4.0-11.0) Red Blood Count 3.06 x10^6/uL (3.50-5.40) Hemoglobin 11.0 g/dL (12.0-15.5) Hematocrit 30.9 % (36.0-47.0) Mean Corpuscular Volume 101 fL (79-100) Mean Corpuscular Hemoglobin 36 pg (25-35) Mean Corpuscular Hemoglobin Concent 36 g/dL (31-37) Red Cell Distribution Width 13.7 % (11.5-14.5) Platelet Count 151 x10^3/uL (140-400) Neutrophils (%) (Auto) 90 % (31-73) Lymphocytes (%) (Auto) 4 % (24-48) Monocytes (%) (Auto) 7 % (0-9) Eosinophils (%) (Auto) 0 % (0-3) Basophils (%) (Auto) 0 % (0-3) Neutrophils # (Auto) 7.7 x10^3/uL (1.8-7.7) Lymphocytes # (Auto) 0.3 x10^3/uL (1.0-4.8) Monocytes # (Auto) 0.6 x10^3/uL (0.0-1.1) Eosinophils # (Auto) 0.0 x10^3/uL (0.0-0.7) Basophils # (Auto) 0.0 x10^3/uL (0.0-0.2) Sodium Level 129 mmol/L (136-145) Potassium Level 4.0 mmol/L (3.5-5.1) Chloride Level 94 mmol/L (98-107) Carbon Dioxide Level 26 mmol/L (21-32) Anion Gap 9 (6-14) Blood Urea Nitrogen 11 mg/dL (7-20) Creatinine 0.7 mg/dL (0.6-1.0) Estimated GFR (Cockcroft-Gault) 79.5 Glucose Level 95 mg/dL (70-99) Calcium Level 9.1 mg/dL (8.5-10.1) Brief Hospital Course Acute on chronic back pain Ms. Coyne is an 85-year-old female with past medical history of chronic back pain, hypertension, chronic diastolic congestive heart failure, GERD, osteoarthritis who presented to the ED complaining worsening back pain. She notes base of her neck and midthoracic back as well as lumbar are significantly worse than baseline not managed by her home hydrocodone. No recent travel or sick contacts, no fevers, nausea or vomiting, headache, upper respiratory congestion/rhinorrhea, cough, sore throat, shortness of breath or chest pain of any kind, abdominal pain of any kind, flank pain, dysuria, hematuria, polyuria or oliguria, changes in bowel habits, pain or swelling to arms or legs. No loss of bowel or bladder control, saddle anesthesia, new lower extremity weakness, numbness or tingling, new urinary retention. CT thoracic spine and cervical spine on my interpretation compression fracture of L2 vertebral body and degenerative spondylosis of the cervical spine and old T6 compression fracture. 08/19: Complaining of 9 out of 10 bilateral shoulder pain as well as neck pain radiating into her arms. CRP 93 ESR 30. Will start corticosteroids for likely diagnosis of polymyalgia rheumatica. Had evaluation by physical medicine rehabilitation and recommended home health. Discussed prednisone tapering and need for outpatient follow-up for sed rate and CRP. Problem list: Bilateral shoulder pain - no visual symptoms, elevated inflammatory markers indicative of polymyalgia rheumatica. Will initiate 20 mg of prednisone daily. Fall at home -she thinks is due to her new walker. Will need therapy evaluation prior to discharge, she would be an unsafe discharge she exhibits gait instability. May need skilled services on discharge. Home health ordered Hypertension Chronic diastolic congestive heart failure GERD Osteoarthritis Compression fracture of the L2 vertebral body. The fracture is new compared February 2021. She thinks she is aware of this already and does not want any interventions. No lower back pain at this time. Degenerative spondylosis of the cervical spine. Old compression fracture of the T6 vertebral body. 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 Hyperlipidemia - atorvastatin History of bladder hemorrhage Greater than 30 minutes spent on discharge home with home health Discharge Information Condition at Discharge: Improved Follow Up: Weeks (1) Disposition/Orders: D/C to Home w/ HH Scheduled Aspirin (Aspirin) 81 Mg Tab.chew, 1 TAB PO DAILY, #30 Ref 3 (Reported) Entered as Reported by: PAOLA MACE on 02/09/152240 Last Action: Continued on 08/18/211358 by DELIA HEWITT Atorvastatin Calcium (Atorvastatin Calcium) 20 Mg Tablet, 20 MG PO QHS for CVA for 30 Days, #30 Prescribed by: IGNACIO NUÑEZ MD on 06/15/19 0948 Last Action: Continued on 08/18/211358 by DELIA HEWITT Calcium Carbonate/Vitamin D3 (Calcium 600 + D Tablet) 1 Each Tablet, 1 EACH PO DAILY, (Reported) Entered as Reported by: PAOLA MACE on 02/09/152240 Last Action: Reviewed on 08/18/211334 by COLBY BARON RN Colestipol Hcl (Colestipol Hcl) 1 Gm Tablet, 1 GM PO DAILY for unk, (Reported) Entered as Reported by: DOMINGO MARINO on 10/19/19 101 Last Action: Reviewed on 08/18/211334 by COLBY BARON RN Cyanocobalamin (Vitamin B-12) (Vitamin B12) 2,500 Mcg Tablet, 1 TAB PO DAILY for supp for 30 Days, #30 Ref 0 (Reported) Entered as Reported by: DOMINGO MARINO on 10/19/19 1015 Last Action: Reviewed on 08/18/211334 by COLBY BARON, RN Denosumab (Prolia) 60 Mg/1 Ml Disp.syrin, 60 MG SQ every 6 months for osteoporosis, (Reported) Entered as Reported by: DOMINGO MARINO on 11/02/19 1019 Gabapentin (Gabapentin ) 300 Mg Capsule, 300 MG PO TID for NEUROGENIC PAIN, (Reported) Entered as Reported by: KELLIE AYALA on 03/30/19 1502 Last Action: Continued on 08/18/211358 by DELIA HEWITT Hydrocodone/Acetaminophen (Hydrocodone-Acetamin 5-325 mg) 1 Each Tablet, 5 MG DAILY for pain, (Reported) Entered as Reported by: COLBY BARON RN on 08/18/211336 Last Action: New Order on 08/18/211336 by COLBY BARON RN Lisinopril (Lisinopril) 10 Mg Tablet, 10 MG PO DAILY for FOR HYPERTENSION, #30 Ref 0 (Reported) Entered as Reported by: PAOLA MACE on 02/09/152240 Last Action: Continued on 08/18/211358 by DELIA HEWITT Multivitamin (Multi Vitamin Daily) 1 Each Tablet, 1 EACH PO DAILY, (Reported) Entered as Reported by: PAOLA MACE on 02/09/152240 Omeprazole (Omeprazole) 20 Mg Capsule.dr, 1 CAP PO DAILY for gerd, #30 Ref 5 (Reported) Entered as Reported by: DOMINGO MARINO on 10/19/19 1015 Last Action: Reviewed on 08/18/211334 by COLBY BARON RN Prednisone (Prednisone ) 10 Mg Tablet, 10 MG PO UD for PREDNISONE TAPER for 20 Days, #30 Ref 0 2 tabs PO daily for 10 days Then 1 tablet by mouth daily for 10 days. Then ask for labs for CRP and sed rate Prescribed by: MANDEEP ARROYO MD on 08/19/21 1530 Scheduled PRN Acetaminophen (Acetaminophen) 500 Mg Tablet, 1,000 MG PO PRN Q6HRS PRN for PAIN, (Reported) Entered as Reported by: LATONYA SHINE on 03/11/21 1754 Discontinued Medications Doxycycline Hyclate (Doxycycline Hyclate) 100 Mg Tablet, 100 MG PO BID for cellulitis of the LLE for 1 Days, #2 Prescribed by: KALI SWANSON MD on 03/14/21 1146 Furosemide (Furosemide) 40 Mg Tablet, 1 TAB PO DAILY, #30 Ref 5 (Reported) Entered as Reported by: MYESHA MIGUEL on 12/14/17 1346 Ibuprofen (Advil) 200 Mg Tablet, 200 MG PO PRN Q4HRS PRN for PAIN, (Reported) Entered as Reported by: Mikayla Cao on 02/07/15 1048 Potassium Chloride (Klor-Con 10) 10 Meq Tablet.er, 1 TAB PO DAILY, #30 Ref 5 (Reported) Entered as Reported by: AGNIESZKA GARCÍA on 08/31/17 0945 Justicifation of Admission Dx: Justifications for Admission: Justification of Admission Dx: Yes Chronic Renal Failure: Electrolyte Abnormality Cellulitis: Cellulitis MANDEEP ARROYO MD Aug 19, 2021 15:35
--- NOTE | 2021-08-20 04:58 | CONS ---
DATE OF CONSULTATION: 08/19/2021 ATTENDING PHYSICIAN: Ligia Ortiz MD REASON FOR CONSULTATION: The patient was seen at the request of Dr. Hernandez for rehab evaluation. HISTORY OF PRESENT ILLNESS: This is an 85-year-old female with upper back pain for the last few days. She apparently had a new walker. 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 She was admitted on 08/18/2021 with increase in upper back area pain for the last few days after she started using a new walker. She lives with her daughter. The patient denies any trouble with bowel or bladder control. SHE IS KNOWN ALLERGIC TO CELEBREX. The patient had CT scan of her cervical and thoracic spine, which revealed subacute compression deformity of L2 vertebral body, moderate degenerative spondylosis of cervical spine and pannus posterior to the odontoid and ligamentum flavum redundancy resulting in moderate central canal stenosis, old compression fracture of T6 vertebral body. The patient was noted with sed rate of 30, WBC of 9. The patient is eager to go home. PHYSICAL EXAMINATION: GENERAL: Today revealed an elderly female. The patient is alert, oriented to time, place, person and circumstance, follows commands appropriately. NEUROLOGIC: Moves all 4 extremities voluntarily where she had 4+/5 grade muscle strength except no active left hand finger extension at metacarpophalangeal joint secondary to degenerative joint disease changes. The patient had some edema of her left hand fingers at metacarpophalangeal joints. The patient had equal perception of touch and pinprick sensation bilaterally. She had crepitus on range of motion of right shoulder and right elbow. She had exaggerated knee and ankle jerks. She is independent with bed mobility and transfers. Once up, she walks using a roller walker with wide-based gait slowly. She had a bruised area of left arm. Other than that, her skin is intact. Minimal tenderness to palpation over upper trapezius muscles bilaterally. No obvious weakness of rotator cuff muscles was noted. ASSESSMENT: Elderly female with radiological evidence of degenerative disk disease and degenerative joint disease of cervical vertebrae with some degree of cervical spinal stenosis. No clinical evidence of cervical radiculopathy. Also, degenerative joint disease of right shoulder, right elbow and left hand with no active finger extension at metacarpophalangeal joints of left hand fingers. The patient with known hypertension, diastolic heart failure, gastroesophageal reflux disease, kyphotic deformities of thoracolumbar spine, hypertension. RECOMMENDATIONS: Home with home health physical therapy and occupational therapy. Follow up when medically stable. Dr. Hernandez, I appreciate asking me to participate in the care of this interesting patient. I will be glad to see her for followup with you on as needed basis. CORDELL/EJ/ARMANDO DR: CORDELL/lynn TID: [id number] VALENTÍN
== END 2021-08-19 19:25 | disposition home health service (06) | DRG 545 ==
LOC: ER 05:56 → 4 NORTH 10:45
PROVIDERS: ADMIT Internal Medicine; ATTEND Internal Medicine
DX: M35.3 Polymyalgia rheumatica (principal); G93.41 Metabolic encephalopathy; I50.32 Chronic diastolic (congestive) heart failure; M48.56XA Collapsed vertebra, not elsewhere classified, lumbar region, initial encounter for fracture; M54.2 Cervicalgia; M47.812 Spondylosis without myelopathy or radiculopathy, cervical region; Z86.73 Personal history of transient ischemic attack (TIA), and cerebral infarction without residual deficits; F03.90 Unspecified dementia, unspecified severity, without behavioral disturbance, psychotic disturbance, mood disturbance, and anxiety; E56.9 Vitamin deficiency, unspecified; E78.5 Hyperlipidemia, unspecified; G89.29 Other chronic pain; I11.0 Hypertensive heart disease with heart failure; K21.9 Gastro-esophageal reflux disease without esophagitis; M19.011 Primary osteoarthritis, right shoulder; M40.209 Unspecified kyphosis, site unspecified; M48.02 Spinal stenosis, cervical region; M48.04 Spinal stenosis, thoracic region; M81.0 Age-related osteoporosis without current pathological fracture; Z82.49 Family history of ischemic heart disease and other diseases of the circulatory system; Z88.6 Allergy status to analgesic agent; Z90.710 Acquired absence of both cervix and uterus; Z87.440 Personal history of urinary (tract) infections
CPT/HCPCS: 36415; 72125; 72128; 80048; 80053; 81001; 84484; 85007; 85025; 85651; 86140; 93005; 96372; 96374; J1170; J1644; J1885; J2270; J2405; J3420; J7512; 97530-GP; 99285-25; G0378

== ENCOUNTER 2021-09-01 14:15 | Inpatient (IN) | payer MEDICARE, BC ==
[~2021-09-01] VITALS: Ht 149.9 cm; Wt 43.9 kg
[~2021-09-01 14:15] MED LIST changes: +HYDR-2759; +PRED-220 PO
--- NOTE | 2021-09-01 14:43 | PHYS DOC ---
Past Medical History Past Medical History: CHF, GERD, Hypertension, UTI, Other Additional Past Medical Histor: osteoporosis, chronic back pain, DAILY ASA, MURMUR,KYPHOSIS Past Surgical History: No Surgical History Additional Past Surgical Histo: back sx x 2, R breast lump removed Smoking Status: Former Smoker Alcohol Use: None Drug Use: None General Adult EDM: Chief Complaint: BACK PAIN - NO INJURY HPI: HPI: Patient is a 85 year old female who presents with mid upper back pain and she cannot exactly give me a timeframe of when this is worsened. She has chronic back pain. She states she recently started taking hydrocodone. She states she is just achy all over. She denies abdominal pain, nausea, vomiting, diarrhea, urinary symptoms, lower back pain, radiation of pain, chest pain, shortness of air, headache, dizziness, generalized weakness, fall, numbness or tingling, focal weakness, vision change. Patient has a history of chronic back pain, CHF, osteoporosis, kyphosis, murmur, hypertension, GERD, UTI, hypokalemia, hyponatremia, spinal stenosis, degenerative disc disease, peripheral edema, fractured pelvis. Review of Systems: Review of Systems: Constitutional: Denies fever or chills. [] Eyes: Denies change in visual acuity. [] HENT: Denies nasal congestion or sore throat. [] Respiratory: Denies cough or shortness of breath. [] Cardiovascular: Denies chest pain or edema. [] GI: Denies abdominal pain, nausea, vomiting, bloody stools or diarrhea. [] : Denies dysuria. [] Musculoskeletal: + Upper back pain or denies joint pain. + Generalized body aches [] Integument: Denies rash. [] Neurologic: Denies headache, focal weakness or sensory changes. [] Endocrine: Denies polyuria or polydipsia. [] Lymphatic: Denies swollen glands. [] Psychiatric: Denies depression or anxiety. [] Heart Score: C/O Chest Pain: No HEART Score for Chest Pain: HEART Score for Chest Pain Response (Comments) Value History Slighlty/Non-Suspicious 0 ECG Nonspecific Repolarizatio 1 Age > 65 2 Risk Factors 1 or 2 Risk Factors 1 Troponin < Normal Limit 0 Total 4 Risk Factors: Risk Factors: DM, Current or recent (<one month) smoker, HTN, HLP, family history of CAD, obesity. Risk Scores: Score 0 - 3: 2.5% MACE over next 6 weeks - Discharge Home Score 4 - 6: 20.3% MACE over next 6 weeks - Admit for Clinical Observation Score 7 - 10: 72.7% MACE over next 6 weeks - Early Invasive Strategies Allergies: Allergies: Allergies Coded Allergies Type Severity Reaction Last Updated Verified celecoxib Allergy Intermediate 12/14/17 Yes Physical Exam: PE: Constitutional: Well developed, well nourished, no acute distress, non-toxic appearance. [] HENT: Normocephalic, atraumatic, bilateral external ears normal, oropharynx moist, no oral exudates, nose normal. [] Eyes: PERRLA, EOMI, conjunctiva normal, no discharge. [] Neck: Normal range of motion, no tenderness, supple, no stridor. [] Cardiovascular:Heart rate regular rhythm, no murmur [] Lungs & Thorax: Bilateral upper breath sounds clear and lower diminished to auscultation [] Abdomen: Bowel sounds normal, soft, no tenderness, no masses, no pulsatile masses. [] Skin: Warm, dry, no erythema, no rash. [] Back: No tenderness, no CVA tenderness. [] Extremities: No tenderness, no cyanosis, no clubbing, ROM intact, lower extremity 2+ edema. [] Neurologic: Alert and oriented X 3, normal motor function, normal sensory function, no focal deficits noted. [] Psychologic: Affect normal, judgement normal, mood normal. [] Current Patient Data: Vital Signs: Vital Signs Date Time Temp Pulse Resp B/P (MAP) Pulse Ox O2 Delivery O2 Flow Rate FiO2 09/01/21 14:18 98.0 20 174/81 (112) 96 Room Air 98.0 EKG: EK and read by Dr. Vallecillo as sinus tach at 101 but no STEMI Radiology/Procedures: Radiology/Procedures: [] Impression: [facility] [address] [place] [address] IMAGING REPORT Signed PATIENT: JUDY SEBASTIAN VACCOUNT: [id number] : 1935 LOCATION: ER AGE: 85 SEX: F EXAM STATUS: REG ER ORD. PHYSICIAN: RAYMUNDO BRASHER APRN REASON: upper back pain, cough 1440 DOING EKG AND STARTING IV PROCEDURE: PORTABLE CHEST 1V XR CHEST 1V 09/01/2021 3:06 PM INDICATION: Upper back pain, cough COMPARISON: 03/10/2021 TECHNIQUE: Portable frontal view of the chest is provided. FINDINGS: The cardiomediastinal silhouette is within normal limits. Lungs are clear. There are no significant pleural effusions. There is no pulmonary vascular congestion. No pneumothorax. No suspicious osseous abnormality. IMPRESSION: There is no acute cardiopulmonary process. Electronically signed by: Lul Varela MD (09/01/2021 3:14 PM) [facility] DICTATED and SIGNED BY: LUL VARELA MD DATE: 09/01/21 1513 [facility] [address] [place] [address] IMAGING REPORT Signed PATIENT: JUDY SEBASTIAN VACCOUNT: [id number] : 1935 LOCATION: ER AGE: 85 SEX: F EXAM STATUS: REG ER ORD. PHYSICIAN: RAYMUNDO BRASHER APRN REASON: worsening pain PROCEDURE: CT CERVICAL SPINE WO CONTRAST CT cervical spine without contrast dated 09/01/2021. COMPARISON: 08/18/2021. INDICATION: Worsening pain. TECHNIQUE: Contiguous axial imaging the cervical spine performed with thin cut coronal and sagittal reconstruction. One or more of the following individualized dose reduction techniques were utilized for this examination: 1. Automated exposure control 2. Adjustment of the mA and/or kV according to patient size 3. Use of iterative reconstruction technique FINDINGS: There is mild anterolisthesis of C3 on C4 and C4 on C5, similar to prior study. There is also slight anterolisthesis of C7 on T1, unchanged. Vertebral body heights are maintained. Mild thickening of the prevertebral soft tissues, similar to prior study. Posterior elements are intact. No apparent fracture. Moderate to severe endplate hypertrophic changes with severe disc space narrowing at C5-C6, C6-C7 and C7-T1. Multilevel uncovertebral spurring and facet arthropathy. Multilevel broad-based posterior bulging with resultant mild central canal narrowing at C3-C4, C5-C6 and C7-T1. There is multilevel mild to severe foraminal stenosis with severe left foraminal narrowing at C5-C6. There is prominent posterior panus at the odontoid resulting in mild narrowing of the cervicomedullary junction, unchanged. No new disc herniation. Visualized soft tissue structures are unremarkable. Limited images of the lung apices are clear. IMPRESSION: 1. No new or acute findings. 2. Moderate multilevel cervical spondylosis. There is multilevel mild to severe foraminal narrowing with mild central canal narrowing C3-C4 and C5-C6, unchanged. Electronically signed by: Sudeep Low MD (09/01/2021 3:41 PM) [id number] DICTATED and SIGNED BY: SUDEEP LOW MD DATE: 09/01/211521 Course & Med Decision Making: Course & Med Decision Making Pertinent Labs and Imaging studies reviewed. (See chart for details) See HPI. Alert and oriented x4. Speaks in full clear sentences. No focal bony spinal tenderness. No nuchal rigidity. Afebrile. Lungs are clear to upper lobes but diminished in lower lobes. Abdomen is soft and nontender. No CVA tenderness. Bilateral lower extremity 2+. Sodium is 122. She does have a history of this but she was not this low couple weeks ago. CT of the cervical spine shows no new acute findings. Chest x-ray shows no acute findings. Patient is admitted for hyponatremia to hospitalist. [] Jenny Disclaimer: Jenny Disclaimer: This electronic medical record was generated, in whole or in part, using a voice recognition dictation system. Departure Departure Impression: Primary Impression: Hyponatremia Additional Impressions: Body aches Hyperkalemia Disposition: ADMITTED INPATIENT Admitting Physician: GISELLE Condition: STABLE Referrals: EMELYN MARTINES MD (PCP) RAYMUNDO BRASHER APRN Sep 01, 2021 14:43
[2021-09-01 14:47] LABS: BASO % 0 % (0-3); EOS % 0 % (0-3); HEMOGLOBIN 10.3 g/dL (12.0-15.5); LYMPH # 0.9 x10^3/uL (1.0-4.8); LYMPH % 6 % (24-48); MEAN CORPUSCULAR HEMOGLOBIN 34 pg (25-35); MEAN CORPUSCULAR HGB CONC 34 g/dL (31-37); MEAN CORPUSCULAR VOLUME 100 fL (79-100); MONO # 0.6 x10^3/uL (0.0-1.1); MONO % 4 % (0-9); NEUT # 14.8 x10^3/uL (1.8-7.7); NEUT % 90 % (31-73); PLATELET COUNT 570 x10^3/uL (140-400); WHITE BLOOD COUNT 16.3 x10^3/uL (4.0-11.0)
[2021-09-01 15:08] LABS: CALCIUM 8.4 mg/dL (8.5-10.1); CREATININE 0.8 mg/dL (0.6-1.0); GFR 68.2; POTASSIUM 5.4 mmol/L (3.5-5.1)
[2021-09-01 15:13] LABS: ALBUMIN 2.9 g/dL (3.4-5.0); ALBUMIN/GLOBULIN RATIO 0.8 (1.0-1.7); TOTAL BILIRUBIN 0.4 mg/dL (0.2-1.0); TOTAL PROTEIN 6.4 g/dL (6.4-8.2)
--- NOTE | 2021-09-01 15:17 | RAD ---
XR CHEST 1V 09/01/2021 3:06 PM INDICATION: Upper back pain, cough COMPARISON: 03/10/2021 TECHNIQUE: Portable frontal view of the chest is provided. FINDINGS: The cardiomediastinal silhouette is within normal limits. Lungs are clear. There are no significant pleural effusions. There is no pulmonary vascular congestion. No pneumothora x. No suspicious osseous abnormality. IMPRESSION: There is no acute cardiopulmonary process. Electronically signed by: Diane Mark MD (09/01/2021 3:14 PM) [facility]
[2021-09-01] MEDS ORDERED: IV NORMAL SALINE 1000ML BAG 1,000 ML IV ONE ×2 (15:30→17:15)
--- NOTE | 2021-09-01 15:44 | RAD ---
CT cervical spine without contrast dated 09/01/2021. COMPARISON: 08/18/2021. INDICATION: Worsening pain. TECHNIQUE: Contiguous axial imaging the cervical spine performed with thin cut coronal and sagittal reconstructi on. One or more of the following individualized dose reduction techniques were utilized for this examinat ion: 1. Automated exposure control 2. Adjustment of the mA and/or kV according to patient size 3. Use of iterative reconstruction technique FINDINGS: There is mild anterolisthesis of C3 on C4 and C4 on C5, similar to prior study. There is also slight anterolisthesis of C7 on T1, unchanged. Vertebral body heights are maintained. Mild thickening of the prevertebral soft tissues, similar to prior study. Posterior elements are intact. No apparent fractu re. Moderate to severe endplate hypertrophic changes with severe disc space narrowing at C5-C6, C6-C7 and C7-T1. Multilevel uncovertebral spurring and facet arthropathy. Multilevel broad-based posterior bul ging with resultant mild central canal narrowing at C3-C4, C5-C6 and C7-T1. There is multilevel mild to severe foraminal stenosis with severe left foraminal narrowing at C5-C6. There is prominent pin inserter ior panus at the odontoid resulting in mild narrowing of the cervicomedullary junction, unchanged. No new disc herniation. Visualized soft tissue structures are unremarkable. Limited images of the lung apices are clear. IMPRESSION: 1. No new or acute findings. 2. Moderate multilevel cervical spondylosis. There is multilevel mild to severe foraminal narrowing w ith mild central canal narrowing C3-C4 and C5-C6, unchanged. Electronically signed by: Sudeep Low MD (09/01/2021 3:41 PM) [id number]
[2021-09-01 16:52] LABS: BACTERIA,URINE MODERATE /HPF (0-FEW)
[2021-09-01 17:06] LABS: INFLUENZA A PATIENT NEGATIVE (NEGATIVE); INFLUENZA B PATIENT NEGATIVE (NEGATIVE)
--- NOTE | 2021-09-01 17:26 | PDOC1 ---
History and Physical Date of Service: DOS: DATE: 09/01/21 TIME: 17:13 Chief Complaint: Chief Complain: back pain History of Present Illness: HPI: 85-year-old female presenting today due to worsening chronic upper back pain. Was recently seen here for the same and discharged home in stable condition. Has been taking her hydrocodone but thinks she ran out. Reports that she feels very rundown and achy all over. Presenting with very similar complaints to recent admissions. Will perform basic work-up. Check TSH. Past Medical/Surgical History: PMH/PSH: Past Medical History: CHF, GERD, Hypertension, UTI, Additional Past Medical Histor: osteoporosis, chronic back pain, DAILY ASA, MURMUR,KYPHOSIS Additional Past Surgical Histo: back sx x 2, R breast lump removed Smoking Status: Former Smoker Alcohol Use: None Drug Use: None Allergies: Allergies: Coded Allergies: celecoxib (Verified Allergy, Intermediate, 12/14/17) Family History: Family History: HTN Current Medications: Current Medications Current Medications Sodium Chloride 1,000 ml @ 1,000 mls/hr 1X ONCE IV Last administered on 09/01/21at 15:40; Start 09/01/21 at 15:30; Stop 09/01/21 at 16:29; Status DC Active Scripts Active Prednisone (Prednisone) 10 Mg Tablet 10 Mg PO UD 20 Days 2 tabs PO daily for 10 days Then 1 tablet by mouth daily for 10 days. Then ask for labs for CRP and sed rate Atorvastatin Calcium 20 Mg Tablet 20 Mg PO QHS 30 Days Reported Hydrocodone-Acetamin 5-325 mg (Hydrocodone/Acetaminophen) 1 Each Tablet 5 Mg DAILY Acetaminophen 500 Mg Tablet 1,000 Mg PO PRN Q6HRS PRN Prolia (Denosumab) 60 Mg/1 Ml Disp.syrin 60 Mg SQ EVERY 6 MONTHS Colestipol Hcl 1 Gm Tablet 1 Gm PO DAILY Vitamin B12 (Cyanocobalamin (Vitamin B-12)) 2,500 Mcg Tablet 1 Tab PO DAILY 30 Days Omeprazole 20 Mg Capsule. 1 Cap PO DAILY Gabapentin (Gabapentin) 300 Mg Capsule 300 Mg PO TID Aspirin 81 Mg Tab.chew 1 Tab PO DAILY Calcium 600 + D Tablet (Calcium Carbonate/Vitamin D3) 1 Each Tablet 1 Each PO DAILY Multi Vitamin Daily (Multivitamin) 1 Each Tablet 1 Each PO DAILY Lisinopril 10 Mg Tablet 10 Mg PO DAILY ROS: Review of Systems Review of System Unless noted in HPI 14 point review of systems was negative Physical Exam: Vital Signs: Vital Signs Date Time Temp Pulse Resp B/P (MAP) Pulse Ox O2 Delivery O2 Flow Rate FiO2 09/01/21 16:53 84 20 156/74 (101) 94 Room Air 09/01/21 14:18 98.0 98.0 Physcial Exam: GEN: No apparent distress. Alert and oriented HEENT: Normal cephalic, atraumatic, external auditory canals are patent EYES: Extraocular muscles are intact, pupil are equally round and reactive to light and accommodation MUSCULOSKELETAL: Well developed , well nourished, good range of motion ENDOCRINE: No thyromegaly was palpated LYMPHATICS: No cervical chain or axillary nodes were noted HEMATOPOIETIC: No bruising NECK: Supple, no JVD, no thyromegaly was noted LUNGS: Clear to auscultation in all lung almeida without rhonchi or wheezing HEART: RRR, S!, S2 present. Peripheral pulses intact, no obvious murmurs noted ABDOMEN: Soft, nontender. Positive bowel sounds, no organomegaly, normal bowel sounds EXTREMITIES: Without clubbing, cyanosis, or edema. Pedal pulses intact. Negative Homans sign NEUROLOGIC: Normal speech and tone. A&O x 3, moves all extremities, no obvious focal deficits PSYCHIATRIC: Normal affect, normal mood. Stable SKIN: No ulcerations or rashes, good skin turgor, no jaundice VASCULAR: Good capillary refill, neurovascular bundle appears to be intact Labs: Labs: Laboratory Tests Test 09/01/21 14:30 09/01/21 15:58 09/01/21 16:30 White Blood Count 16.3 x10^3/uL (4.0-11.0) Red Blood Count 3.00 x10^6/uL (3.50-5.40) Hemoglobin 10.3 g/dL (12.0-15.5) Hematocrit 30.0 % (36.0-47.0) Mean Corpuscular Volume 100 fL (79-100) Mean Corpuscular Hemoglobin 34 pg (25-35) Mean Corpuscular Hemoglobin Concent 34 g/dL (31-37) Red Cell Distribution Width 14.0 % (11.5-14.5) Platelet Count 570 x10^3/uL (140-400) Neutrophils (%) (Auto) 90 % (31-73) Lymphocytes (%) (Auto) 6 % (24-48) Monocytes (%) (Auto) 4 % (0-9) Eosinophils (%) (Auto) 0 % (0-3) Basophils (%) (Auto) 0 % (0-3) Neutrophils # (Auto) 14.8 x10^3/uL (1.8-7.7) Lymphocytes # (Auto) 0.9 x10^3/uL (1.0-4.8) Monocytes # (Auto) 0.6 x10^3/uL (0.0-1.1) Eosinophils # (Auto) 0.0 x10^3/uL (0.0-0.7) Basophils # (Auto) 0.0 x10^3/uL (0.0-0.2) Sodium Level 122 mmol/L (136-145) Potassium Level 5.4 mmol/L (3.5-5.1) Chloride Level 90 mmol/L (98-107) Carbon Dioxide Level 20 mmol/L (21-32) Anion Gap 12 (6-14) Blood Urea Nitrogen 29 mg/dL (7-20) Creatinine 0.8 mg/dL (0.6-1.0) Estimated GFR (Cockcroft-Gault) 68.2 BUN/Creatinine Ratio 36 (6-20) Glucose Level 93 mg/dL (70-99) Calcium Level 8.4 mg/dL (8.5-10.1) Magnesium Level 2.0 mg/dL (1.8-2.4) Total Bilirubin 0.4 mg/dL (0.2-1.0) Aspartate Amino Transf (AST/SGOT) 29 U/L (15-37) Alanine Aminotransferase (ALT/SGPT) 51 U/L (14-59) Alkaline Phosphatase 279 U/L (46-116) Troponin I High Sensitivity 11 ng/L (4-50) Total Protein 6.4 g/dL (6.4-8.2) Albumin 2.9 g/dL (3.4-5.0) Albumin/Globulin Ratio 0.8 (1.0-1.7) Lipase 125 U/L (73-393) Urine Collection Type Unknown Urine Color (Auto) Light yellow Urine Turbidity Clear Urine pH (Auto) 6.0 (<5.0-8.0) Urine Specific [place] 1.011 (1.000-1.030) Urine Protein (Auto) Negative mg/dL (Negative) Urine Glucose (Auto)(UA) Negative mg/dL (Negative) Urine Ketones (Auto) Negative mg/dL (Negative) Urine Blood (Auto) Trace (Negative) Urine Nitrite Negative (Negative) Urine Bilirubin (Auto) Negative (Negative) Urine Urobilinogen (Auto) Normal mg/dL (Normal) Urine Leukocyte Esterase (Auto) Negative (Negative) Urine RBC 1-2 /HPF (0-2) Urine WBC 1-4 /HPF (0-4) Urine Squamous Epithelial Cells Mod /LPF Urine Bacteria Moderate /HPF (0-FEW) Influenza Type A Antigen Negative (NEGATIVE) Influenza Type B Antigen Negative (NEGATIVE) SARS-CoV-2 Antigen (Rapid) Negative (NEGATIVE) Laboratory Tests Test 09/01/21 14:30 09/01/21 15:58 09/01/21 16:30 White Blood Count 16.3 x10^3/uL (4.0-11.0) Red Blood Count 3.00 x10^6/uL (3.50-5.40) Hemoglobin 10.3 g/dL (12.0-15.5) Hematocrit 30.0 % (36.0-47.0) Mean Corpuscular Volume 100 fL (79-100) Mean Corpuscular Hemoglobin 34 pg (25-35) Mean Corpuscular Hemoglobin Concent 34 g/dL (31-37) Red Cell Distribution Width 14.0 % (11.5-14.5) Platelet Count 570 x10^3/uL (140-400) Neutrophils (%) (Auto) 90 % (31-73) Lymphocytes (%) (Auto) 6 % (24-48) Monocytes (%) (Auto) 4 % (0-9) Eosinophils (%) (Auto) 0 % (0-3) Basophils (%) (Auto) 0 % (0-3) Neutrophils # (Auto) 14.8 x10^3/uL (1.8-7.7) Lymphocytes # (Auto) 0.9 x10^3/uL (1.0-4.8) Monocytes # (Auto) 0.6 x10^3/uL (0.0-1.1) Eosinophils # (Auto) 0.0 x10^3/uL (0.0-0.7) Basophils # (Auto) 0.0 x10^3/uL (0.0-0.2) Sodium Level 122 mmol/L (136-145) Potassium Level 5.4 mmol/L (3.5-5.1) Chloride Level 90 mmol/L (98-107) Carbon Dioxide Level 20 mmol/L (21-32) Anion Gap 12 (6-14) Blood Urea Nitrogen 29 mg/dL (7-20) Creatinine 0.8 mg/dL (0.6-1.0) Estimated GFR (Cockcroft-Gault) 68.2 BUN/Creatinine Ratio 36 (6-20) Glucose Level 93 mg/dL (70-99) Calcium Level 8.4 mg/dL (8.5-10.1) Magnesium Level 2.0 mg/dL (1.8-2.4) Total Bilirubin 0.4 mg/dL (0.2-1.0) Aspartate Amino Transf (AST/SGOT) 29 U/L (15-37) Alanine Aminotransferase (ALT/SGPT) 51 U/L (14-59) Alkaline Phosphatase 279 U/L (46-116) Troponin I High Sensitivity 11 ng/L (4-50) Total Protein 6.4 g/dL (6.4-8.2) Albumin 2.9 g/dL (3.4-5.0) Albumin/Globulin Ratio 0.8 (1.0-1.7) Lipase 125 U/L (73-393) Urine Collection Type Unknown Urine Color (Auto) Light yellow Urine Turbidity Clear Urine pH (Auto) 6.0 (<5.0-8.0) Urine Specific [place] 1.011 (1.000-1.030) Urine Protein (Auto) Negative mg/dL (Negative) Urine Glucose (Auto)(UA) Negative mg/dL (Negative) Urine Ketones (Auto) Negative mg/dL (Negative) Urine Blood (Auto) Trace (Negative) Urine Nitrite Negative (Negative) Urine Bilirubin (Auto) Negative (Negative) Urine Urobilinogen (Auto) Normal mg/dL (Normal) Urine Leukocyte Esterase (Auto) Negative (Negative) Urine RBC 1-2 /HPF (0-2) Urine WBC 1-4 /HPF (0-4) Urine Squamous Epithelial Cells Mod /LPF Urine Bacteria Moderate /HPF (0-FEW) Influenza Type A Antigen Negative (NEGATIVE) Influenza Type B Antigen Negative (NEGATIVE) SARS-CoV-2 Antigen (Rapid) Negative (NEGATIVE) Assessment/Plan Assessment/Plan Chronic back pain. Hyponatremia hyperkalemia normal creatinine. History CHF GERD hypertension UTI. -Presented emergency room today with worsening of chronic back pain. Was recently seen here for the same and essentially said she ran out of meds prompting her to come back. -No acute changes on spinal imaging. consulted regarding back pain management if any -Plan was for discharge but notable electrolyte abnormalities recommended admission then. -Consult nephrology regarding electrolyte abnormalities. -Correct as ordered. Recheck BMP later tonight and again in the morning. Check magnesium. -Trend creatinine; check TSH iron panel; flu screen -Urine code go either way on being infection or not. Given acuity of situation will start on basic Rocephin. -Home meds as indicated -DVT prophylaxis -Cardiac diet Justifications for Admission Other Justification Generalized weakness and lower extremity cellulitis MANDEEP REID MD Sep 01, 2021 17:26
[2021-09-01] MEDS ORDERED: ACETAMINOPHEN 325 MG TABLET. PO PRN (17:30)
[2021-09-01] MEDS ORDERED: ONDANSETRON PF 4 MG/2 ML VIAL. IVP PRN (17:30)
[2021-09-01] MEDS ORDERED: ELECTROLYTE (NON-ICU) PROTOCOL. MC PRN (17:30)
[2021-09-01] MEDS ORDERED: CALCIUM CARBONATE 500 MG TAB.CHEW PO PRN (17:30)
[2021-09-01 18:14] VITALS: BP 167/83
[2021-09-01 18:53] LABS: CALCIUM 8.3 mg/dL (8.5-10.1); CREATININE 0.8 mg/dL (0.6-1.0); GFR 68.2; POTASSIUM 4.7 mmol/L (3.5-5.1)
[2021-09-01] MEDS: cefTRIAXone IV Push 1 GM VIAL. IVP SCH (19:26)
[2021-09-01] MEDS: HYDROcodone/APAP 5/325MG 1 TAB TABLET PO PRN ×2 (19:26→21:28)
[2021-09-01] MEDS: HEPARIN for SUB-Q USE 5,000 UNIT/ML VIAL. SQ SCH (19:34)
--- NOTE | 2021-09-01 19:53 | EKG ---
[facility] [address] [place] [address] Test Date: 2021-09-01 Test Time: 14:37:32 Pat Name: JUDY SEBASTIAN Department: Room: [facility] Gender: F Behavioral Therapist: : 1935 Requested By: RAYMUNDO BRASHER Order Number: [id number] Reading MD: Benny Bneitez Measurements Intervals [place] Rate: 101 P: 9 GA: 134 QRS: -1 QRSD: 90 T: 45 QT: 314 QTc: 408 Interpretive Statements SINUS TACHYCARDIA LEFT ATRIAL ABNORMALITY MILD NON SPECIFIC ST CHANGES Electronically Signed On 09-04-2021 17:20:28 CDT by Benny Benitez
[2021-09-01 19:58] VITALS: BP 178/83
[2021-09-01] MEDS: GABAPENTIN 300 MG CAPSULE. PO SCH (21:27)
[2021-09-01] MEDS: ATORVASTATIN CALCIUM 20 MG TABLET PO SCH (21:27)
[2021-09-01] MEDS: SENNOSIDES/DOCUSATE 8.6/50MG TABLET. PO SCH (21:27)
[2021-09-01 23:36] VITALS: BP 178/84
[2021-09-02] MEDS: HYDROcodone/APAP 5/325MG 1 TAB TABLET PO PRN ×4 (01:58→23:47)
[2021-09-02 03:17] VITALS: BP 176/94
[2021-09-02 07:00] VITALS: BP 189/97
[2021-09-02] MEDS: predniSONE 10 MG TABLET PO SCH (09:20)
[2021-09-02] MEDS: GABAPENTIN 300 MG CAPSULE. PO SCH ×3 (09:20→21:54)
[2021-09-02] MEDS: CALCIUM CARB/VIT D3 500/200 TABLET. PO SCH (09:20)
[2021-09-02] MEDS: ASPIRIN CHEWABLE 81 MG TABLET. PO SCH (09:20)
[2021-09-02] MEDS: PANTOPRAZOLE 40 MG TABLET.DR. PO SCH (09:20)
[2021-09-02] MEDS: SENNOSIDES/DOCUSATE 8.6/50MG TABLET. PO SCH ×2 (09:20→21:54)
[2021-09-02] MEDS: LISINOPRIL 10 MG TABLET PO SCH (09:20)
[2021-09-02] MEDS: MULTIVITAMIN with MINERAL TABLET. PO SCH (09:20)
[2021-09-02] MEDS: COLESTIPOL HCL 1 GM TABLET PO SCH (09:21)
[2021-09-02] MEDS: CYANOCOBALAMIN (VITAMIN B-12) 1,000 MCG TABLET. PO SCH (09:21)
--- NOTE | 2021-09-02 09:28 | PDOC2 ---
CONSULT Date of Consult Date of Consult DATE: 09/02/21 TIME: 09:13 Reason for Consult Reason for Consult: rehab evaluation. Referring Physician Referring Physician: . Identification/Chief Complaint Chief Complaint Pain all over. History of Present Illness Reason for Visit: This is an 85 year old right handed female admitted with generalized body pain and was found with hyponatraemia and leukocytosis. Past Medical History Cardiovascular: HTN CENTRAL NERVOUS SYSTEM: Periperal neuropathy GI: GERD Musculoskeletal: Osteoarthritis, Muscle atrophy, Weakness, Stiffness Renal/: No pertinent hx Family History Family History: Hypertension Social History ALCOHOL: none Drugs: None Lives: with Family Current Problem List Problem List Problems Medical Problems: (1) Body aches Status: Acute (2) Hyperkalemia Status: Acute Current Medications Current Medications Current Medications Sodium Chloride 1,000 ml @ 1,000 mls/hr 1X ONCE IV Last administered on 09/01/21at 15:40; Start 09/01/21 at 15:30; Stop 09/01/21 at 16:29; Status DC Sodium Chloride 1,000 ml @ 1,000 mls/hr 1X ONCE IV Last administered on 09/01/21at 17:15; Start 09/01/21 at 17:15; Stop 09/01/21 at 18:14; Status DC Aspirin (Aspirin Chewable) 81 mg DAILY PO ; Start 09/02/21 at 09:00 Atorvastatin Calcium (Lipitor) 20 mg QHS PO Last administered on 09/01/21at 21:27; Start 09/01/21 at 21:00 Colestipol HCl (Colestid) 1 gm DAILY@1000 PO ; Start 09/02/21 at 10:00 Gabapentin (Neurontin) 300 mg TID PO Last administered on 09/01/21at 21:27; Start 09/01/21 at 21:00 Lisinopril (Prinivil) 10 mg DAILY PO ; Start 09/02/21 at 09:00 Prednisone (Prednisone) 10 mg DAILY PO ; Start 09/02/21 at 09:00 Calcium/Vitamin D (Oscal D 500mg/ 200uts) 1 tab DAILY PO ; Start 09/02/21 at 09:00 Cyanocobalamin (Vitamin B-12) 2,500 mcg DAILY PO ; Start 09/02/21 at 09:00 Multivitamins (Thera M Plus) 1 tab DAILY PO ; Start 09/02/21 at 09:00 Pantoprazole Sodium (Protonix) 40 mg DAILYAC PO ; Start 09/02/21 at 07:30 Ondansetron HCl (Zofran) 4 mg PRN Q6HRS PRN IVP NAUSEA/VOMITING; Start 09/01/21 at 17:30 Calcium Carbonate/ Glycine (Tums) 500 mg PRN Q3HRS PRN PO UPSET STOMACH; Start 09/01/21 at 17:30 Info (Non-Icu Electrolyte Protocol) 1 ea PRN DAILY PRN MC SEE COMMENTS; Start 09/01/21 at 17:30 Acetaminophen/ Hydrocodone Bitart (Lortab 5/325) 1 tab PRN Q4HRS PRN PO MILD PAIN 1-3 Last administered on 09/02/21at 01:58; Start 09/01/21 at 17:30 Acetaminophen/ Hydrocodone Bitart (Lortab 5/325) 2 tab PRN Q4HRS PRN PO MODERATE PAIN, SEVERE PAIN; Start 09/01/21 at 17:30 Acetaminophen (Tylenol) 650 mg PRN Q6HRS PRN PO Headaches, Temp > 101.5F Last administered on 09/02/21at 00:59; Start 09/01/21 at 17:30 Senna/Docusate Sodium (Senna Plus) 1 tab BID PO Last administered on 09/01/21at 21:27; Start 09/01/21 at 21:00 Heparin Sodium (Porcine) (Heparin Sodium) 5,000 unit Q12HR SQ Last administered on 09/01/21at 19:34; Start 09/01/21 at 18:00 Ceftriaxone Sodium (Rocephin) 1 gm Q24H IVP Last administered on 09/01/21at 19:26; Start 09/01/21 at 18:00 Active Scripts Active Prednisone (Prednisone) 10 Mg Tablet 10 Mg PO UD 20 Days 2 tabs PO daily for 10 days Then 1 tablet by mouth daily for 10 days. Then ask for labs for CRP and sed rate Atorvastatin Calcium 20 Mg Tablet 20 Mg PO QHS 30 Days Reported Hydrocodone-Acetamin 5-325 mg (Hydrocodone/Acetaminophen) 1 Each Tablet 5 Mg DAILY Acetaminophen 500 Mg Tablet 1,000 Mg PO PRN Q6HRS PRN Prolia (Denosumab) 60 Mg/1 Ml Disp.syrin 60 Mg SQ EVERY 6 MONTHS Colestipol Hcl 1 Gm Tablet 1 Gm PO DAILY Vitamin B12 (Cyanocobalamin (Vitamin B-12)) 2,500 Mcg Tablet 1 Tab PO DAILY 30 Days Omeprazole 20 Mg Capsule. 1 Cap PO DAILY Gabapentin (Gabapentin) 300 Mg Capsule 300 Mg PO TID Aspirin 81 Mg Tab.chew 1 Tab PO DAILY Calcium 600 + D Tablet (Calcium Carbonate/Vitamin D3) 1 Each Tablet 1 Each PO DAILY Multi Vitamin Daily (Multivitamin) 1 Each Tablet 1 Each PO DAILY Lisinopril 10 Mg Tablet 10 Mg PO DAILY Allergies Allergies: Coded Allergies: celecoxib (Verified Allergy, Intermediate, 12/14/17) Physical Exam General: Alert, Oriented X3, Cooperative, mild distress Extremities: Other (She had tenderness to palaption over medial and lateral knee joint line and over both hands and over posterior shoulder girdle muscles bilaterally.) Neuro: Normal speech, Normal tone, Other (She had generalized muscle weakness with associated extremity muscle atrophy,especially of hand and foot intrinsic muscles and she had 4/5 grade muscle strength overall,except no active left hand finger extension at MCP joint level and she had absent DTRs in her ankles.) MUSCULOSKELETAL: Osteoarthritic changes both hands, Other (She had crepitus on ROM of her knees with effusiopn and deformities of both hand fingers an thumb from DJD changes.) Vitals VITALS Vital Signs Date Time Temp Pulse Resp B/P (MAP) Pulse Ox O2 Delivery O2 Flow Rate FiO2 09/02/21 07:00 98.0 100 18 189/97 (127) 96 Room Air 98.0 Labs Labs Laboratory Tests Test 09/01/21 14:30 09/01/21 15:58 09/01/21 16:30 09/01/21 18:27 White Blood Count 16.3 x10^3/uL (4.0-11.0) Red Blood Count 3.00 x10^6/uL (3.50-5.40) Hemoglobin 10.3 g/dL (12.0-15.5) Hematocrit 30.0 % (36.0-47.0) Mean Corpuscular Volume 100 fL (79-100) Mean Corpuscular Hemoglobin 34 pg (25-35) Mean Corpuscular Hemoglobin Concent 34 g/dL (31-37) Red Cell Distribution Width 14.0 % (11.5-14.5) Platelet Count 570 x10^3/uL (140-400) Neutrophils (%) (Auto) 90 % (31-73) Lymphocytes (%) (Auto) 6 % (24-48) Monocytes (%) (Auto) 4 % (0-9) Eosinophils (%) (Auto) 0 % (0-3) Basophils (%) (Auto) 0 % (0-3) Neutrophils # (Auto) 14.8 x10^3/uL (1.8-7.7) Lymphocytes # (Auto) 0.9 x10^3/uL (1.0-4.8) Monocytes # (Auto) 0.6 x10^3/uL (0.0-1.1) Eosinophils # (Auto) 0.0 x10^3/uL (0.0-0.7) Basophils # (Auto) 0.0 x10^3/uL (0.0-0.2) Sodium Level 122 mmol/L (136-145) 124 mmol/L (136-145) Potassium Level 5.4 mmol/L (3.5-5.1) 4.7 mmol/L (3.5-5.1) Chloride Level 90 mmol/L (98-107) 94 mmol/L (98-107) Carbon Dioxide Level 20 mmol/L (21-32) 21 mmol/L (21-32) Anion Gap 12 (6-14) 9 (6-14) Blood Urea Nitrogen 29 mg/dL (7-20) 24 mg/dL (7-20) Creatinine 0.8 mg/dL (0.6-1.0) 0.8 mg/dL (0.6-1.0) Estimated GFR (Cockcroft-Gault) 68.2 68.2 BUN/Creatinine Ratio 36 (6-20) Glucose Level 93 mg/dL (70-99) 131 mg/dL (70-99) Calcium Level 8.4 mg/dL (8.5-10.1) 8.3 mg/dL (8.5-10.1) Magnesium Level 2.0 mg/dL (1.8-2.4) Total Bilirubin 0.4 mg/dL (0.2-1.0) Aspartate Amino Transf (AST/SGOT) 29 U/L (15-37) Alanine Aminotransferase (ALT/SGPT) 51 U/L (14-59) Alkaline Phosphatase 279 U/L (46-116) Troponin I High Sensitivity 11 ng/L (4-50) 14 ng/L (4-50) Total Protein 6.4 g/dL (6.4-8.2) Albumin 2.9 g/dL (3.4-5.0) Albumin/Globulin Ratio 0.8 (1.0-1.7) Lipase 125 U/L (73-393) Urine Collection Type Unknown Urine Color (Auto) Light yellow Urine Turbidity Clear Urine pH (Auto) 6.0 (<5.0-8.0) Urine Specific [place] 1.011 (1.000-1.030) Urine Protein (Auto) Negative mg/dL (Negative) Urine Glucose (Auto)(UA) Negative mg/dL (Negative) Urine Ketones (Auto) Negative mg/dL (Negative) Urine Blood (Auto) Trace (Negative) Urine Nitrite Negative (Negative) Urine Bilirubin (Auto) Negative (Negative) Urine Urobilinogen (Auto) Normal mg/dL (Normal) Urine Leukocyte Esterase (Auto) Negative (Negative) Urine RBC 1-2 /HPF (0-2) Urine WBC 1-4 /HPF (0-4) Urine Squamous Epithelial Cells Mod /LPF Urine Bacteria Moderate /HPF (0-FEW) Influenza Type A Antigen Negative (NEGATIVE) Influenza Type B Antigen Negative (NEGATIVE) SARS-CoV-2 Antigen (Rapid) Negative (NEGATIVE) Thyroid Stimulating Hormone (TSH) 1.274 uIU/mL (0.358-3.74) Test 09/01/21 20:55 Troponin I High Sensitivity 15 ng/L (4-50) Laboratory Tests Test 09/01/21 14:30 09/01/21 15:58 09/01/21 16:30 09/01/21 18:27 White Blood Count 16.3 x10^3/uL (4.0-11.0) Red Blood Count 3.00 x10^6/uL (3.50-5.40) Hemoglobin 10.3 g/dL (12.0-15.5) Hematocrit 30.0 % (36.0-47.0) Mean Corpuscular Volume 100 fL (79-100) Mean Corpuscular Hemoglobin 34 pg (25-35) Mean Corpuscular Hemoglobin Concent 34 g/dL (31-37) Red Cell Distribution Width 14.0 % (11.5-14.5) Platelet Count 570 x10^3/uL (140-400) Neutrophils (%) (Auto) 90 % (31-73) Lymphocytes (%) (Auto) 6 % (24-48) Monocytes (%) (Auto) 4 % (0-9) Eosinophils (%) (Auto) 0 % (0-3) Basophils (%) (Auto) 0 % (0-3) Neutrophils # (Auto) 14.8 x10^3/uL (1.8-7.7) Lymphocytes # (Auto) 0.9 x10^3/uL (1.0-4.8) Monocytes # (Auto) 0.6 x10^3/uL (0.0-1.1) Eosinophils # (Auto) 0.0 x10^3/uL (0.0-0.7) Basophils # (Auto) 0.0 x10^3/uL (0.0-0.2) Sodium Level 122 mmol/L (136-145) 124 mmol/L (136-145) Potassium Level 5.4 mmol/L (3.5-5.1) 4.7 mmol/L (3.5-5.1) Chloride Level 90 mmol/L (98-107) 94 mmol/L (98-107) Carbon Dioxide Level 20 mmol/L (21-32) 21 mmol/L (21-32) Anion Gap 12 (6-14) 9 (6-14) Blood Urea Nitrogen 29 mg/dL (7-20) 24 mg/dL (7-20) Creatinine 0.8 mg/dL (0.6-1.0) 0.8 mg/dL (0.6-1.0) Estimated GFR (Cockcroft-Gault) 68.2 68.2 BUN/Creatinine Ratio 36 (6-20) Glucose Level 93 mg/dL (70-99) 131 mg/dL (70-99) Calcium Level 8.4 mg/dL (8.5-10.1) 8.3 mg/dL (8.5-10.1) Magnesium Level 2.0 mg/dL (1.8-2.4) Total Bilirubin 0.4 mg/dL (0.2-1.0) Aspartate Amino Transf (AST/SGOT) 29 U/L (15-37) Alanine Aminotransferase (ALT/SGPT) 51 U/L (14-59) Alkaline Phosphatase 279 U/L (46-116) Troponin I High Sensitivity 11 ng/L (4-50) 14 ng/L (4-50) Total Protein 6.4 g/dL (6.4-8.2) Albumin 2.9 g/dL (3.4-5.0) Albumin/Globulin Ratio 0.8 (1.0-1.7) Lipase 125 U/L (73-393) Urine Collection Type Unknown Urine Color (Auto) Light yellow Urine Turbidity Clear Urine pH (Auto) 6.0 (<5.0-8.0) Urine Specific [place] 1.011 (1.000-1.030) Urine Protein (Auto) Negative mg/dL (Negative) Urine Glucose (Auto)(UA) Negative mg/dL (Negative) Urine Ketones (Auto) Negative mg/dL (Negative) Urine Blood (Auto) Trace (Negative) Urine Nitrite Negative (Negative) Urine Bilirubin (Auto) Negative (Negative) Urine Urobilinogen (Auto) Normal mg/dL (Normal) Urine Leukocyte Esterase (Auto) Negative (Negative) Urine RBC 1-2 /HPF (0-2) Urine WBC 1-4 /HPF (0-4) Urine Squamous Epithelial Cells Mod /LPF Urine Bacteria Moderate /HPF (0-FEW) Influenza Type A Antigen Negative (NEGATIVE) Influenza Type B Antigen Negative (NEGATIVE) SARS-CoV-2 Antigen (Rapid) Negative (NEGATIVE) Thyroid Stimulating Hormone (TSH) 1.274 uIU/mL (0.358-3.74) Test 09/01/21 20:55 Troponin I High Sensitivity 15 ng/L (4-50) Assessment/Plan Assessment/Plan Chronic upper back area pain from DDD and DJD of cervical,thoracic and lumbar vertebrae with associated exaggerated thoracic kyphosis and DJD of both hands with deformities and DJD of both knee with pain and peripheral neuropathy with mobility and self care limitations. Rec: To consider injecting painful knee joints and to obtain hinge knee braces for use while up. Home when medicallys table. STACIE ANGUIANO MD Sep 02, 2021 09:28
[2021-09-02] MEDS ORDERED: BUPIVACAINE MPF 0.25% 10 ML VIAL. IJ ONE (09:30)
[2021-09-02] MEDS ORDERED: TRIAMCINOLONE PRES.FREE 40 MG/ML VIAL. INT ART ONE ×2 (09:30)
[2021-09-02 10:51] LABS: CALCIUM 8.5 mg/dL (8.5-10.1); CREATININE 0.7 mg/dL (0.6-1.0); GFR 79.5; POTASSIUM 4.7 mmol/L (3.5-5.1)
[2021-09-02 10:56] LABS: ALBUMIN 2.9 g/dL (3.4-5.0); PHOSPHORUS 2.2 mg/dL (2.6-4.7)
[2021-09-02 11:00] VITALS: BP 163/89
[2021-09-02] MEDS: HEPARIN for SUB-Q USE 5,000 UNIT/ML VIAL. SQ SCH ×2 (12:34→21:59)
--- NOTE | 2021-09-02 13:17 | PDOC ---
[employer] PROGRESS NOTE Date of Service DOS: DATE: 09/02/21 TIME: 13:16 Chief Complaint Chief Complaint Chronic back pain. Hyponatremia hyperkalemia normal creatinine. History CHF GERD hypertension UTI. History of Present Illness History of Present Illness 09/02/2021 Patient seen On commode currently Discussed with RN Discussed with case management Chart reviewed Vitals/I&O Vitals/I&O: Vital Signs Date Time Temp Pulse Resp B/P (MAP) Pulse Ox O2 Delivery O2 Flow Rate FiO2 09/02/21 11:00 98.3 100 19 163/89 (113) 95 Room Air 98.3 I & O 09/01/21 09/01/21 09/02/21 15:00 23:00 07:00 Intake Total 30 ml Balance 30 ml Physical Exam General: Alert, Oriented X3, Cooperative, mild distress Lungs: Clear Extremities: Other (She had tenderness to palaption over medial and lateral knee joint line and over both hands and over posterior shoulder girdle muscles bilaterally.) Labs Labs: Laboratory Tests Test 09/01/21 14:30 09/01/21 15:58 09/01/21 16:30 09/01/21 18:27 White Blood Count 16.3 x10^3/uL (4.0-11.0) Red Blood Count 3.00 x10^6/uL (3.50-5.40) Hemoglobin 10.3 g/dL (12.0-15.5) Hematocrit 30.0 % (36.0-47.0) Mean Corpuscular Volume 100 fL (79-100) Mean Corpuscular Hemoglobin 34 pg (25-35) Mean Corpuscular Hemoglobin Concent 34 g/dL (31-37) Red Cell Distribution Width 14.0 % (11.5-14.5) Platelet Count 570 x10^3/uL (140-400) Neutrophils (%) (Auto) 90 % (31-73) Lymphocytes (%) (Auto) 6 % (24-48) Monocytes (%) (Auto) 4 % (0-9) Eosinophils (%) (Auto) 0 % (0-3) Basophils (%) (Auto) 0 % (0-3) Neutrophils # (Auto) 14.8 x10^3/uL (1.8-7.7) Lymphocytes # (Auto) 0.9 x10^3/uL (1.0-4.8) Monocytes # (Auto) 0.6 x10^3/uL (0.0-1.1) Eosinophils # (Auto) 0.0 x10^3/uL (0.0-0.7) Basophils # (Auto) 0.0 x10^3/uL (0.0-0.2) Sodium Level 122 mmol/L (136-145) 124 mmol/L (136-145) Potassium Level 5.4 mmol/L (3.5-5.1) 4.7 mmol/L (3.5-5.1) Chloride Level 90 mmol/L (98-107) 94 mmol/L (98-107) Carbon Dioxide Level 20 mmol/L (21-32) 21 mmol/L (21-32) Anion Gap 12 (6-14) 9 (6-14) Blood Urea Nitrogen 29 mg/dL (7-20) 24 mg/dL (7-20) Creatinine 0.8 mg/dL (0.6-1.0) 0.8 mg/dL (0.6-1.0) Estimated GFR (Cockcroft-Gault) 68.2 68.2 BUN/Creatinine Ratio 36 (6-20) Glucose Level 93 mg/dL (70-99) 131 mg/dL (70-99) Calcium Level 8.4 mg/dL (8.5-10.1) 8.3 mg/dL (8.5-10.1) Magnesium Level 2.0 mg/dL (1.8-2.4) Total Bilirubin 0.4 mg/dL (0.2-1.0) Aspartate Amino Transf (AST/SGOT) 29 U/L (15-37) Alanine Aminotransferase (ALT/SGPT) 51 U/L (14-59) Alkaline Phosphatase 279 U/L (46-116) Troponin I High Sensitivity 11 ng/L (4-50) 14 ng/L (4-50) Total Protein 6.4 g/dL (6.4-8.2) Albumin 2.9 g/dL (3.4-5.0) Albumin/Globulin Ratio 0.8 (1.0-1.7) Lipase 125 U/L (73-393) Urine Collection Type Unknown Urine Color (Auto) Light yellow Urine Turbidity Clear Urine pH (Auto) 6.0 (<5.0-8.0) Urine Specific [place] 1.011 (1.000-1.030) Urine Protein (Auto) Negative mg/dL (Negative) Urine Glucose (Auto)(UA) Negative mg/dL (Negative) Urine Ketones (Auto) Negative mg/dL (Negative) Urine Blood (Auto) Trace (Negative) Urine Nitrite Negative (Negative) Urine Bilirubin (Auto) Negative (Negative) Urine Urobilinogen (Auto) Normal mg/dL (Normal) Urine Leukocyte Esterase (Auto) Negative (Negative) Urine RBC 1-2 /HPF (0-2) Urine WBC 1-4 /HPF (0-4) Urine Squamous Epithelial Cells Mod /LPF Urine Bacteria Moderate /HPF (0-FEW) Influenza Type A Antigen Negative (NEGATIVE) Influenza Type B Antigen Negative (NEGATIVE) SARS-CoV-2 Antigen (Rapid) Negative (NEGATIVE) Vitamin B12 Level > 2000 pg/mL (247-911) Thyroid Stimulating Hormone (TSH) 1.274 uIU/mL (0.358-3.74) Test 09/01/21 20:55 09/02/21 10:20 Troponin I High Sensitivity 15 ng/L (4-50) Sodium Level 124 mmol/L (136-145) Potassium Level 4.7 mmol/L (3.5-5.1) Chloride Level 90 mmol/L (98-107) Carbon Dioxide Level 20 mmol/L (21-32) Anion Gap 14 (6-14) Blood Urea Nitrogen 12 mg/dL (7-20) Creatinine 0.7 mg/dL (0.6-1.0) Estimated GFR (Cockcroft-Gault) 79.5 Glucose Level 122 mg/dL (70-99) Calcium Level 8.5 mg/dL (8.5-10.1) Phosphorus Level 2.2 mg/dL (2.6-4.7) Creatine Kinase 42 U/L (26-192) Albumin 2.9 g/dL (3.4-5.0) Assessment and Plan Assessmemt and Plan Problems Medical Problems: (1) Body aches Status: Acute (2) Hyperkalemia Status: Acute Chronic back pain. Hyponatremia hyperkalemia normal creatinine. History CHF GERD hypertension UTI. -Presented emergency room today with worsening of chronic back pain. Was recently seen here for the same and essentially said she ran out of [employer] ng her to come back. -No acute changes on spinal imaging. consulted regarding back pain management if any -Plan was for discharge but notable electrolyte abnormalities recommended admission then. -Consult nephrology regarding electrolyte abnormalities. -Correct as ordered. Recheck BMP later tonight and again in the morning. Check magnesium. -Trend creatinine; check TSH iron panel; flu screen -Urine code go either way on being infection or not. Given acuity of situation will start on basic Rocephin. -Home meds as indicated -Cardiac diet Home meds DVT prophylaxis Full code Trend labs next encourage p.o. intake Suspect she will need fpc Comment Review of Relevant I have reviewed the following items pete (where applicable) has been applied. Medications: Current Medications Medications (Trade) Dose Ordered Sig/Mason Route PRN Reason Start Time Stop Time Status Last Admin Dose Admin Sodium Chloride 1,000 ml @ 1,000 mls/hr 1X ONCE IV 09/01/21 15:30 09/01/21 16:29 DC 09/01/21 15:40 Sodium Chloride 1,000 ml @ 1,000 mls/hr 1X ONCE IV 09/01/21 17:15 09/01/21 18:14 DC 09/01/21 17:15 Aspirin (Aspirin Chewable) 81 mg DAILY PO 09/02/21 09:00 09/02/21 09:20 Atorvastatin Calcium (Lipitor) 20 mg QHS PO 09/01/21 21:00 09/01/21 21:27 Colestipol HCl (Colestid) 1 gm DAILY@1000 PO 09/02/21 10:00 09/02/21 09:21 Gabapentin (Neurontin) 300 mg TID PO 09/01/21 21:00 09/02/21 09:20 Lisinopril (Prinivil) 10 mg DAILY PO 09/02/21 09:00 09/02/21 09:20 Prednisone (Prednisone) 10 mg DAILY PO 09/02/21 09:00 09/02/21 09:20 Calcium/Vitamin D (Oscal D 500mg/ 200uts) 1 tab DAILY PO 09/02/21 09:00 09/02/21 09:20 Cyanocobalamin (Vitamin B-12) 2,500 mcg DAILY PO 09/02/21 09:00 09/02/21 09:21 Multivitamins (Thera M Plus) 1 tab DAILY PO 09/02/21 09:00 09/02/21 09:20 Pantoprazole Sodium (Protonix) 40 mg DAILYAC PO 09/02/21 07:30 09/02/21 09:20 Acetaminophen/ Hydrocodone Bitart (Lortab 5/325) 1 tab PRN Q4HRS PRN PO MILD PAIN 1-3 09/01/21 17:30 09/02/21 09:19 Acetaminophen (Tylenol) 650 mg PRN Q6HRS PRN PO Headaches, Temp > 101.5F 09/01/21 17:30 09/02/21 00:59 Senna/Docusate Sodium (Senna Plus) 1 tab BID PO 09/01/21 21:00 09/02/21 09:20 Heparin Sodium (Porcine) (Heparin Sodium) 5,000 unit Q12HR SQ 09/01/21 18:00 09/02/21 12:34 Ceftriaxone Sodium (Rocephin) 1 gm Q24H IVP 09/01/21 18:00 09/01/21 19:26 Justifications for Admission Other Justification Generalized weakness and lower extremity cellulitis PATIENCE GUAN III DO Sep 02, 2021 13:17
--- NOTE | 2021-09-02 14:35 | PDOC2 ---
CONSULT Date of Consult Date of Consult DATE: 09/02/21 TIME: 14:09 Reason for Consult Reason for Consult: HypoNatremia Identification/Chief Complaint Chief Complaint "Im not feeling good, Im a mess" Source Source: Caregiver, Chart review History of Present Illness Reason for Visit: Patient is a 85 year old CF who presents with mid upper back pain, cannot exactly give me a timeframe of when this is worsened. She has chronic back pain. She states she recently started taking hydrocodone. She states she is just achy all over. She is c/o Mils nausea,ate eggs and Ham for breakfast this morning .Denies abdominal pain, vomiting, diarrhea. No urinary symptoms . No headache, dizziness, generalized weakness, fall, numbness or tingling, focal weakness, vision change. She states overall she is not feeling well . She is tearful states she is amess. Daughter at bedside. Patient stays with the other daughter. Denies use of NSAID's . No Hx of Kidney stones, recurrent UTI's . Appetite fair , drinks enough fluid s / Hx of Low Na in the past as well Patient has a history of chronic back pain, CHF, osteoporosis, kyphosis, murmur, hypertension, GERD, UTI, hypokalemia, hyponatremia, spinal stenosis, degenerative disc disease, peripheral edema, fractured pelvis. Past Medical History Cardiovascular: HTN CENTRAL NERVOUS SYSTEM: Periperal neuropathy GI: GERD Musculoskeletal: Osteoarthritis, Muscle atrophy, Weakness, Stiffness Renal/: No pertinent hx Family History Family History: Hypertension Social History ALCOHOL: none Drugs: None Lives: with Family Current Problem List Problem List Problems Medical Problems: (1) Body aches Status: Acute (2) Hyperkalemia Status: Acute Current Medications Current Medications Current Medications Sodium Chloride 1,000 ml @ 1,000 mls/hr 1X ONCE IV Last administered on 09/01/21at 15:40; Start 09/01/21 at 15:30; Stop 09/01/21 at 16:29; Status DC Sodium Chloride 1,000 ml @ 1,000 mls/hr 1X ONCE IV Last administered on 09/01/21at 17:15; Start 09/01/21 at 17:15; Stop 09/01/21 at 18:14; Status DC Aspirin (Aspirin Chewable) 81 mg DAILY PO Last administered on 09/02/21at 09:20; Start 09/02/21 at 09:00 Atorvastatin Calcium (Lipitor) 20 mg QHS PO Last administered on 09/01/21at 21:27; Start 09/01/21 at 21:00 Colestipol HCl (Colestid) 1 gm DAILY@1000 PO Last administered on 09/02/21at 09:21; Start 09/02/21 at 10:00 Gabapentin (Neurontin) 300 mg TID PO Last administered on 09/02/21at 09:20; Start 09/01/21 at 21:00 Lisinopril (Prinivil) 10 mg DAILY PO Last administered on 09/02/21 09:20; Start 09/02/21 at 09:00 Prednisone (Prednisone) 10 mg DAILY PO Last administered on 09/02/21 09:20; Start 09/02/21 at 09:00 Calcium/Vitamin D (Oscal D 500mg/ 200uts) 1 tab DAILY PO Last administered on 09/02/21 09:20; Start 09/02/21 at 09:00 Cyanocobalamin (Vitamin B-12) 2,500 mcg DAILY PO Last administered on 09/02/21 09:21; Start 09/02/21 at 09:00 Multivitamins (Thera M Plus) 1 tab DAILY PO Last administered on 09/02/21 09:20; Start 09/02/21 at 09:00 Pantoprazole Sodium (Protonix) 40 mg DAILYAC PO Last administered on 09/02/21at 09:20; Start 09/02/21 at 07:30 Ondansetron HCl (Zofran) 4 mg PRN Q6HRS PRN IVP NAUSEA/VOMITING; Start 09/01/21 at 17:30 Calcium Carbonate/ Glycine (Tums) 500 mg PRN Q3HRS PRN PO UPSET STOMACH; Start 09/01/21 at 17:30 Info (Non-Icu Electrolyte Protocol) 1 ea PRN DAILY PRN MC SEE COMMENTS; Start 09/01/21 at 17:30 Acetaminophen/ Hydrocodone Bitart (Lortab 5/325) 1 tab PRN Q4HRS PRN PO MILD PAIN 1-3 Last administered on 09/02/21at 09:19; Start 09/01/21 at 17:30 Acetaminophen/ Hydrocodone Bitart (Lortab 5/325) 2 tab PRN Q4HRS PRN PO MODERATE PAIN, SEVERE PAIN; Start 09/01/21 at 17:30 Acetaminophen (Tylenol) 650 mg PRN Q6HRS PRN PO Headaches, Temp > 101.5F Last administered on 09/02/21at 00:59; Start 09/01/21 at 17:30 Senna/Docusate Sodium (Senna Plus) 1 tab BID PO Last administered on 09/02/21at 09:20; Start 09/01/21 at 21:00 Heparin Sodium (Porcine) (Heparin Sodium) 5,000 unit Q12HR SQ Last administered on 09/02/21at 12:34; Start 09/01/21 at 18:00 Ceftriaxone Sodium (Rocephin) 1 gm Q24H IVP Last administered on 09/01/21at 19:26; Start 09/01/21 at 18:00 Triamcinolone Acetonide (Kenalog-40) 40 mg 1X ONCE INT ART ; Start 09/02/21 at 09:30; Stop 09/02/21 at 09:31; Status DC Triamcinolone Acetonide (Kenalog-40) 40 mg 1X ONCE INT ART ; Start 09/02/21 at 09:30; Stop 09/02/21 at 09:31; Status DC Bupivacaine HCl (Sensorcaine-Mpf 0.25%) 10 ml 1X ONCE IJ ; Start 09/02/21 at 09:30; Stop 09/02/21 at 09:31; Status DC Active Scripts Active Prednisone (Prednisone) 10 Mg Tablet 10 Mg PO UD 20 Days 2 tabs PO daily for 10 days Then 1 tablet by mouth daily for 10 days. Then ask for labs for CRP and sed rate Atorvastatin Calcium 20 Mg Tablet 20 Mg PO QHS 30 Days Reported Hydrocodone-Acetamin 5-325 mg (Hydrocodone/Acetaminophen) 1 Each Tablet 5 Mg DAILY Acetaminophen 500 Mg Tablet 1,000 Mg PO PRN Q6HRS PRN Prolia (Denosumab) 60 Mg/1 Ml Disp.syrin 60 Mg SQ EVERY 6 MONTHS Colestipol Hcl 1 Gm Tablet 1 Gm PO DAILY Vitamin B12 (Cyanocobalamin (Vitamin B-12)) 2,500 Mcg Tablet 1 Tab PO DAILY 30 Days Omeprazole 20 Mg Capsule.dr 1 Cap PO DAILY Gabapentin (Gabapentin) 300 Mg Capsule 300 Mg PO TID Aspirin 81 Mg Tab.chew 1 Tab PO DAILY Calcium 600 + D Tablet (Calcium Carbonate/Vitamin D3) 1 Each Tablet 1 Each PO DAILY Multi Vitamin Daily (Multivitamin) 1 Each Tablet 1 Each PO DAILY Lisinopril 10 Mg Tablet 10 Mg PO DAILY Allergies Allergies: Coded Allergies: celecoxib (Verified Allergy, Intermediate, 12/14/17) ROS Review of System as per HPI, rest of the ROS is negative Physical Exam Physical Exam GEN: Awake, Oriented x [], In [] distress EYES: Vision Unchanged, Conjunctiva Normal EN: No EN Drainage, Mucous Membranes [] NECK: [] JVD, [] JVP, Supple, [] Thyromegaly CVS: S1S2, [] Murmur, No Gallop, No Rub,[] Edema RESP: [] Rales, [] Rhonchi,[] Acc. Muscle Use GI: BS + ve, NO Bruit, Non Tender, Non Distended : [] CVA tenderness, [] Suprapubic Tenderness Vital Signs Vital Signs Date Time Temp Pulse Resp B/P (MAP) Pulse Ox O2 Delivery O2 Flow Rate FiO2 09/02/21 11:00 98.3 100 19 163/89 (113) 95 Room Air 98.3 Assessment & Plan HypoNatremia --Has Mild Chronic HypoNa 127-132 with Na of 120 in 2018 . TSH normal . Recommendations- IV NS, Strict I/O , If No improvement will switch to Hypertonic saline .m onitor Reps status Check Serum and urine Osm Chronic back pain- No acute changes on spinal imaging. consulted Hyperkalemia POA - Mild, resolved HypoPhos- Replace IV, ordered Renal Cyst- reported Ct scan 2018(Renal not consulted) Multiple small hyperdense lesions in the kidneys bilaterally with the largest at the lower pole the left kidney measuring 1.8 cm in size. These may represent hemorrhagic cysts. Differential would include angiomyolipoma renal cell carcinoma. Not sure if she has seen urology. Consult urology to r/o RCC defer to primary History CHF - Compensated currently Hypertension BP high , continue meds Labs Labs Laboratory Tests Test 09/01/21 14:30 09/01/21 15:58 09/01/21 16:30 09/01/21 18:27 White Blood Count 16.3 x10^3/uL (4.0-11.0) Red Blood Count 3.00 x10^6/uL (3.50-5.40) Hemoglobin 10.3 g/dL (12.0-15.5) Hematocrit 30.0 % (36.0-47.0) Mean Corpuscular Volume 100 fL (79-100) Mean Corpuscular Hemoglobin 34 pg (25-35) Mean Corpuscular Hemoglobin Concent 34 g/dL (31-37) Red Cell Distribution Width 14.0 % (11.5-14.5) Platelet Count 570 x10^3/uL (140-400) Neutrophils (%) (Auto) 90 % (31-73) Lymphocytes (%) (Auto) 6 % (24-48) Monocytes (%) (Auto) 4 % (0-9) Eosinophils (%) (Auto) 0 % (0-3) Basophils (%) (Auto) 0 % (0-3) Neutrophils # (Auto) 14.8 x10^3/uL (1.8-7.7) Lymphocytes # (Auto) 0.9 x10^3/uL (1.0-4.8) Monocytes # (Auto) 0.6 x10^3/uL (0.0-1.1) Eosinophils # (Auto) 0.0 x10^3/uL (0.0-0.7) Basophils # (Auto) 0.0 x10^3/uL (0.0-0.2) Sodium Level 122 mmol/L (136-145) 124 mmol/L (136-145) Potassium Level 5.4 mmol/L (3.5-5.1) 4.7 mmol/L (3.5-5.1) Chloride Level 90 mmol/L (98-107) 94 mmol/L (98-107) Carbon Dioxide Level 20 mmol/L (21-32) 21 mmol/L (21-32) Anion Gap 12 (6-14) 9 (6-14) Blood Urea Nitrogen 29 mg/dL (7-20) 24 mg/dL (7-20) Creatinine 0.8 mg/dL (0.6-1.0) 0.8 mg/dL (0.6-1.0) Estimated GFR (Cockcroft-Gault) 68.2 68.2 BUN/Creatinine Ratio 36 (6-20) Glucose Level 93 mg/dL (70-99) 131 mg/dL (70-99) Calcium Level 8.4 mg/dL (8.5-10.1) 8.3 mg/dL (8.5-10.1) Magnesium Level 2.0 mg/dL (1.8-2.4) Total Bilirubin 0.4 mg/dL (0.2-1.0) Aspartate Amino Transf (AST/SGOT) 29 U/L (15-37) Alanine Aminotransferase (ALT/SGPT) 51 U/L (14-59) Alkaline Phosphatase 279 U/L (46-116) Troponin I High Sensitivity 11 ng/L (4-50) 14 ng/L (4-50) Total Protein 6.4 g/dL (6.4-8.2) Albumin 2.9 g/dL (3.4-5.0) Albumin/Globulin Ratio 0.8 (1.0-1.7) Lipase 125 U/L (73-393) Urine Collection Type Unknown Urine Color (Auto) Light yellow Urine Turbidity Clear Urine pH (Auto) 6.0 (<5.0-8.0) Urine Specific [place] 1.011 (1.000-1.030) Urine Protein (Auto) Negative mg/dL (Negative) Urine Glucose (Auto)(UA) Negative mg/dL (Negative) Urine Ketones (Auto) Negative mg/dL (Negative) Urine Blood (Auto) Trace (Negative) Urine Nitrite Negative (Negative) Urine Bilirubin (Auto) Negative (Negative) Urine Urobilinogen (Auto) Normal mg/dL (Normal) Urine Leukocyte Esterase (Auto) Negative (Negative) Urine RBC 1-2 /HPF (0-2) Urine WBC 1-4 /HPF (0-4) Urine Squamous Epithelial Cells Mod /LPF Urine Bacteria Moderate /HPF (0-FEW) Influenza Type A Antigen Negative (NEGATIVE) Influenza Type B Antigen Negative (NEGATIVE) SARS-CoV-2 Antigen (Rapid) Negative (NEGATIVE) Vitamin B12 Level > 2000 pg/mL (247-911) Thyroid Stimulating Hormone (TSH) 1.274 uIU/mL (0.358-3.74) Test 09/01/21 20:55 09/02/21 10:20 Troponin I High Sensitivity 15 ng/L (4-50) Sodium Level 124 mmol/L (136-145) Potassium Level 4.7 mmol/L (3.5-5.1) Chloride Level 90 mmol/L (98-107) Carbon Dioxide Level 20 mmol/L (21-32) Anion Gap 14 (6-14) Blood Urea Nitrogen 12 mg/dL (7-20) Creatinine 0.7 mg/dL (0.6-1.0) Estimated GFR (Cockcroft-Gault) 79.5 Glucose Level 122 mg/dL (70-99) Calcium Level 8.5 mg/dL (8.5-10.1) Phosphorus Level 2.2 mg/dL (2.6-4.7) Creatine Kinase 42 U/L (26-192) Albumin 2.9 g/dL (3.4-5.0) Laboratory Tests Test 09/01/21 14:30 09/01/21 15:58 09/01/21 16:30 09/01/21 18:27 White Blood Count 16.3 x10^3/uL (4.0-11.0) Red Blood Count 3.00 x10^6/uL (3.50-5.40) Hemoglobin 10.3 g/dL (12.0-15.5) Hematocrit 30.0 % (36.0-47.0) Mean Corpuscular Volume 100 fL (79-100) Mean Corpuscular Hemoglobin 34 pg (25-35) Mean Corpuscular Hemoglobin Concent 34 g/dL (31-37) Red Cell Distribution Width 14.0 % (11.5-14.5) Platelet Count 570 x10^3/uL (140-400) Neutrophils (%) (Auto) 90 % (31-73) Lymphocytes (%) (Auto) 6 % (24-48) Monocytes (%) (Auto) 4 % (0-9) Eosinophils (%) (Auto) 0 % (0-3) Basophils (%) (Auto) 0 % (0-3) Neutrophils # (Auto) 14.8 x10^3/uL (1.8-7.7) Lymphocytes # (Auto) 0.9 x10^3/uL (1.0-4.8) Monocytes # (Auto) 0.6 x10^3/uL (0.0-1.1) Eosinophils # (Auto) 0.0 x10^3/uL (0.0-0.7) Basophils # (Auto) 0.0 x10^3/uL (0.0-0.2) Sodium Level 122 mmol/L (136-145) 124 mmol/L (136-145) Potassium Level 5.4 mmol/L (3.5-5.1) 4.7 mmol/L (3.5-5.1) Chloride Level 90 mmol/L (98-107) 94 mmol/L (98-107) Carbon Dioxide Level 20 mmol/L (21-32) 21 mmol/L (21-32) Anion Gap 12 (6-14) 9 (6-14) Blood Urea Nitrogen 29 mg/dL (7-20) 24 mg/dL (7-20) Creatinine 0.8 mg/dL (0.6-1.0) 0.8 mg/dL (0.6-1.0) Estimated GFR (Cockcroft-Gault) 68.2 68.2 BUN/Creatinine Ratio 36 (6-20) Glucose Level 93 mg/dL (70-99) 131 mg/dL (70-99) Calcium Level 8.4 mg/dL (8.5-10.1) 8.3 mg/dL (8.5-10.1) Magnesium Level 2.0 mg/dL (1.8-2.4) Total Bilirubin 0.4 mg/dL (0.2-1.0) Aspartate Amino Transf (AST/SGOT) 29 U/L (15-37) Alanine Aminotransferase (ALT/SGPT) 51 U/L (14-59) Alkaline Phosphatase 279 U/L (46-116) Troponin I High Sensitivity 11 ng/L (4-50) 14 ng/L (4-50) Total Protein 6.4 g/dL (6.4-8.2) Albumin 2.9 g/dL (3.4-5.0) Albumin/Globulin Ratio 0.8 (1.0-1.7) Lipase 125 U/L (73-393) Urine Collection Type Unknown Urine Color (Auto) Light yellow Urine Turbidity Clear Urine pH (Auto) 6.0 (<5.0-8.0) Urine Specific [place] 1.011 (1.000-1.030) Urine Protein (Auto) Negative mg/dL (Negative) Urine Glucose (Auto)(UA) Negative mg/dL (Negative) Urine Ketones (Auto) Negative mg/dL (Negative) Urine Blood (Auto) Trace (Negative) Urine Nitrite Negative (Negative) Urine Bilirubin (Auto) Negative (Negative) Urine Urobilinogen (Auto) Normal mg/dL (Normal) Urine Leukocyte Esterase (Auto) Negative (Negative) Urine RBC 1-2 /HPF (0-2) Urine WBC 1-4 /HPF (0-4) Urine Squamous Epithelial Cells Mod /LPF Urine Bacteria Moderate /HPF (0-FEW) Influenza Type A Antigen Negative (NEGATIVE) Influenza Type B Antigen Negative (NEGATIVE) SARS-CoV-2 Antigen (Rapid) Negative (NEGATIVE) Vitamin B12 Level > 2000 pg/mL (247-911) Thyroid Stimulating Hormone (TSH) 1.274 uIU/mL (0.358-3.74) Test 09/01/21 20:55 09/02/21 10:20 Troponin I High Sensitivity 15 ng/L (4-50) Sodium Level 124 mmol/L (136-145) Potassium Level 4.7 mmol/L (3.5-5.1) Chloride Level 90 mmol/L (98-107) Carbon Dioxide Level 20 mmol/L (21-32) Anion Gap 14 (6-14) Blood Urea Nitrogen 12 mg/dL (7-20) Creatinine 0.7 mg/dL (0.6-1.0) Estimated GFR (Cockcroft-Gault) 79.5 Glucose Level 122 mg/dL (70-99) Calcium Level 8.5 mg/dL (8.5-10.1) Phosphorus Level 2.2 mg/dL (2.6-4.7) Creatine Kinase 42 U/L (26-192) Albumin 2.9 g/dL (3.4-5.0) Review All relevant outside records, renal labs, imaging studies, telemetry/EKG's were reviewed. Images Images EST 1V 09/01/2021 3:06 PM INDICATION: Upper back pain, cough COMPARISON: 03/10/2021 TECHNIQUE: Portable frontal view of the chest is provided. FINDINGS: The cardiomediastinal silhouette is within normal limits. Lungs are clear. There are no significant pleural effusions. There is no pulmonary vascular congestion. No pneumothorax. No suspicious osseous abnormality. IMPRESSION: There is no acute cardiopulmonary process. RE RUDOLPH MD Sep 02, 2021 14:35
[2021-09-02] MEDS: IV NORMAL SALINE 1000ML BAG 1,000 ML IV SCH (14:45)
[2021-09-02 15:00] VITALS: BP 163/79
[2021-09-02] MEDS ORDERED: SODIUM PHOSPHATE 20 MMOL in IV NORMAL SALINE 250ML 250 ML IV ONE (16:00)
[2021-09-02 19:00] VITALS: BP 167/80
[2021-09-02] MEDS: cefTRIAXone IV Push 1 GM VIAL. IVP SCH (21:53)
[2021-09-02] MEDS: ATORVASTATIN CALCIUM 20 MG TABLET PO SCH (21:54)
[2021-09-02] MEDS: LACTOBACILLUS RHAMNOSUS GG 1 CAPSULE. PO SCH (21:54)
[2021-09-02 23:00] VITALS: BP 172/86
[2021-09-03 03:19] VITALS: BP 187/79
[2021-09-03] MEDS: IV NORMAL SALINE 1000ML BAG 1,000 ML IV SCH ×2 (04:05→15:10)
[2021-09-03 07:00] VITALS: BP 182/97
[2021-09-03 08:13] LABS: CALCIUM 8.4 mg/dL (8.5-10.1); CREATININE 0.5 mg/dL (0.6-1.0); GFR 117.3; POTASSIUM 3.9 mmol/L (3.5-5.1)
[2021-09-03] MEDS: PANTOPRAZOLE 40 MG TABLET.DR. PO SCH (09:00)
[2021-09-03] MEDS: HYDROcodone/APAP 5/325MG 1 TAB TABLET PO PRN ×2 (09:41→22:19)
[2021-09-03] MEDS: predniSONE 10 MG TABLET PO SCH (09:42)
[2021-09-03] MEDS: ASPIRIN CHEWABLE 81 MG TABLET. PO SCH (09:42)
[2021-09-03] MEDS: LISINOPRIL 10 MG TABLET PO SCH (09:42)
[2021-09-03] MEDS: CYANOCOBALAMIN (VITAMIN B-12) 1,000 MCG TABLET. PO SCH (09:42)
[2021-09-03] MEDS: LACTOBACILLUS RHAMNOSUS GG 1 CAPSULE. PO SCH ×2 (09:42→22:18)
[2021-09-03] MEDS: CALCIUM CARB/VIT D3 500/200 TABLET. PO SCH (09:43)
[2021-09-03] MEDS: COLESTIPOL HCL 1 GM TABLET PO SCH (09:43)
[2021-09-03] MEDS: GABAPENTIN 300 MG CAPSULE. PO SCH ×3 (09:43→22:19)
[2021-09-03] MEDS: MULTIVITAMIN with MINERAL TABLET. PO SCH (09:43)
[2021-09-03] MEDS: SENNOSIDES/DOCUSATE 8.6/50MG TABLET. PO SCH ×2 (09:43→22:18)
--- NOTE | 2021-09-03 09:43 | PDOC ---
PROGRESS NOTES Date of Service DATE: 09/03/21 TIME: 09:40 Subjective Subjective She admits upper back and arm pain. Objective Objective Vital Signs Date Time Temp Pulse Resp B/P (MAP) Pulse Ox O2 Delivery O2 Flow Rate FiO2 09/03/21 07:00 97.8 98 18 182/97 (125) 96 Room Air 97.8 Intake and Output 09/03/21 07:00 Intake Total 240 ml Output Total 700 ml Balance -460 ml Intake Oral 240 ml Output Urine Total 700 ml # Voids 7 Physical Exam Physical Exam She is alert,and continues with tenderness to palpation over posterior shoulder girdle muscles and she had pain free ROM of her shoulders without any tenderness and she got up with help and made a few steps with roller walker at bedside. Assessment Assessment Problems Medical Problems: (1) Body aches Status: Acute (2) Hyperkalemia Status: Acute Plan Plan of Care To get her up as tolerated Comment Review of Relevant I have reviewed the following items pete (where applicable) has been applied. Labs Laboratory Tests Test 09/01/21 14:30 09/01/21 15:58 09/01/21 16:30 09/01/21 18:27 White Blood Count 16.3 x10^3/uL (4.0-11.0) Red Blood Count 3.00 x10^6/uL (3.50-5.40) Hemoglobin 10.3 g/dL (12.0-15.5) Hematocrit 30.0 % (36.0-47.0) Mean Corpuscular Volume 100 fL (79-100) Mean Corpuscular Hemoglobin 34 pg (25-35) Mean Corpuscular Hemoglobin Concent 34 g/dL (31-37) Red Cell Distribution Width 14.0 % (11.5-14.5) Platelet Count 570 x10^3/uL (140-400) Neutrophils (%) (Auto) 90 % (31-73) Lymphocytes (%) (Auto) 6 % (24-48) Monocytes (%) (Auto) 4 % (0-9) Eosinophils (%) (Auto) 0 % (0-3) Basophils (%) (Auto) 0 % (0-3) Neutrophils # (Auto) 14.8 x10^3/uL (1.8-7.7) Lymphocytes # (Auto) 0.9 x10^3/uL (1.0-4.8) Monocytes # (Auto) 0.6 x10^3/uL (0.0-1.1) Eosinophils # (Auto) 0.0 x10^3/uL (0.0-0.7) Basophils # (Auto) 0.0 x10^3/uL (0.0-0.2) Sodium Level 122 mmol/L (136-145) 124 mmol/L (136-145) Potassium Level 5.4 mmol/L (3.5-5.1) 4.7 mmol/L (3.5-5.1) Chloride Level 90 mmol/L (98-107) 94 mmol/L (98-107) Carbon Dioxide Level 20 mmol/L (21-32) 21 mmol/L (21-32) Anion Gap 12 (6-14) 9 (6-14) Blood Urea Nitrogen 29 mg/dL (7-20) 24 mg/dL (7-20) Creatinine 0.8 mg/dL (0.6-1.0) 0.8 mg/dL (0.6-1.0) Estimated GFR (Cockcroft-Gault) 68.2 68.2 BUN/Creatinine Ratio 36 (6-20) Glucose Level 93 mg/dL (70-99) 131 mg/dL (70-99) Calcium Level 8.4 mg/dL (8.5-10.1) 8.3 mg/dL (8.5-10.1) Magnesium Level 2.0 mg/dL (1.8-2.4) Total Bilirubin 0.4 mg/dL (0.2-1.0) Aspartate Amino Transf (AST/SGOT) 29 U/L (15-37) Alanine Aminotransferase (ALT/SGPT) 51 U/L (14-59) Alkaline Phosphatase 279 U/L (46-116) Troponin I High Sensitivity 11 ng/L (4-50) 14 ng/L (4-50) Total Protein 6.4 g/dL (6.4-8.2) Albumin 2.9 g/dL (3.4-5.0) Albumin/Globulin Ratio 0.8 (1.0-1.7) Lipase 125 U/L (73-393) Urine Collection Type Unknown Urine Color (Auto) Light yellow Urine Turbidity Clear Urine pH (Auto) 6.0 (<5.0-8.0) Urine Specific [place] 1.011 (1.000-1.030) Urine Protein (Auto) Negative mg/dL (Negative) Urine Glucose (Auto)(UA) Negative mg/dL (Negative) Urine Ketones (Auto) Negative mg/dL (Negative) Urine Blood (Auto) Trace (Negative) Urine Nitrite Negative (Negative) Urine Bilirubin (Auto) Negative (Negative) Urine Urobilinogen (Auto) Normal mg/dL (Normal) Urine Leukocyte Esterase (Auto) Negative (Negative) Urine RBC 1-2 /HPF (0-2) Urine WBC 1-4 /HPF (0-4) Urine Squamous Epithelial Cells Mod /LPF Urine Bacteria Moderate /HPF (0-FEW) Influenza Type A Antigen Negative (NEGATIVE) Influenza Type B Antigen Negative (NEGATIVE) SARS-CoV-2 Antigen (Rapid) Negative (NEGATIVE) Iron Level 20 ug/dL (50-170) Total Iron Binding Capacity 195 ug/dL (250-450) Iron Saturation 10 % (15-34) Vitamin B12 Level > 2000 pg/mL (247-911) Thyroid Stimulating Hormone (TSH) 1.274 uIU/mL (0.358-3.74) Test 09/01/21 20:55 09/02/21 10:20 09/03/21 06:35 Troponin I High Sensitivity 15 ng/L (4-50) Sodium Level 124 mmol/L (136-145) 127 mmol/L (136-145) Potassium Level 4.7 mmol/L (3.5-5.1) 3.9 mmol/L (3.5-5.1) Chloride Level 90 mmol/L (98-107) 94 mmol/L (98-107) Carbon Dioxide Level 20 mmol/L (21-32) 23 mmol/L (21-32) Anion Gap 14 (6-14) 10 (6-14) Blood Urea Nitrogen 12 mg/dL (7-20) 9 mg/dL (7-20) Creatinine 0.7 mg/dL (0.6-1.0) 0.5 mg/dL (0.6-1.0) Estimated GFR (Cockcroft-Gault) 79.5 117.3 Glucose Level 122 mg/dL (70-99) 113 mg/dL (70-99) Calcium Level 8.5 mg/dL (8.5-10.1) 8.4 mg/dL (8.5-10.1) Phosphorus Level 2.2 mg/dL (2.6-4.7) Creatine Kinase 42 U/L (26-192) Albumin 2.9 g/dL (3.4-5.0) Cortisol AM Sample 46.8 ug/dL (4.3-22.4) Laboratory Tests Test 09/02/21 10:20 09/03/21 06:35 Sodium Level 124 mmol/L (136-145) 127 mmol/L (136-145) Potassium Level 4.7 mmol/L (3.5-5.1) 3.9 mmol/L (3.5-5.1) Chloride Level 90 mmol/L (98-107) 94 mmol/L (98-107) Carbon Dioxide Level 20 mmol/L (21-32) 23 mmol/L (21-32) Anion Gap 14 (6-14) 10 (6-14) Blood Urea Nitrogen 12 mg/dL (7-20) 9 mg/dL (7-20) Creatinine 0.7 mg/dL (0.6-1.0) 0.5 mg/dL (0.6-1.0) Estimated GFR (Cockcroft-Gault) 79.5 117.3 Glucose Level 122 mg/dL (70-99) 113 mg/dL (70-99) Calcium Level 8.5 mg/dL (8.5-10.1) 8.4 mg/dL (8.5-10.1) Phosphorus Level 2.2 mg/dL (2.6-4.7) Creatine Kinase 42 U/L (26-192) Albumin 2.9 g/dL (3.4-5.0) Cortisol AM Sample 46.8 ug/dL (4.3-22.4) Microbiology 09/01/21 Urine Culture - Final, Complete Medications Current Medications Sodium Chloride 1,000 ml @ 1,000 mls/hr 1X ONCE IV Last administered on 09/01/21at 15:40; Start 09/01/21 at 15:30; Stop 09/01/21 at 16:29; Status DC Sodium Chloride 1,000 ml @ 1,000 mls/hr 1X ONCE IV Last administered on 09/01/21at 17:15; Start 09/01/21 at 17:15; Stop 09/01/21 at 18:14; Status DC Aspirin (Aspirin Chewable) 81 mg DAILY PO Last administered on 09/02/21 09:20; Start 09/02/21 at 09:00 Atorvastatin Calcium (Lipitor) 20 mg QHS PO Last administered on 09/02/21at 21:54; Start 09/01/21 at 21:00 Colestipol HCl (Colestid) 1 gm DAILY@1000 PO Last administered on 09/02/21 09:21; Start 09/02/21 at 10:00 Gabapentin (Neurontin) 300 mg TID PO Last administered on 09/02/21 21:54; Start 09/01/21 at 21:00 Lisinopril (Prinivil) 10 mg DAILY PO Last administered on 09/02/21 09:20; Start 09/02/21 at 09:00 Prednisone (Prednisone) 10 mg DAILY PO Last administered on 09/02/21 09:20; Start 09/02/21 at 09:00 Calcium/Vitamin D (Oscal D 500mg/ 200uts) 1 tab DAILY PO Last administered on 09/02/21 09:20; Start 09/02/21 at 09:00 Cyanocobalamin (Vitamin B-12) 2,500 mcg DAILY PO Last administered on 09/02/21 09:21; Start 09/02/21 at 09:00 Multivitamins (Thera M Plus) 1 tab DAILY PO Last administered on 09/02/21 09:20; Start 09/02/21 at 09:00 Pantoprazole Sodium (Protonix) 40 mg DAILYAC PO Last administered on 09/02/21at 09:20; Start 09/02/21 at 07:30 Ondansetron HCl (Zofran) 4 mg PRN Q6HRS PRN IVP NAUSEA/VOMITING; Start 09/01/21 at 17:30 Calcium Carbonate/ Glycine (Tums) 500 mg PRN Q3HRS PRN PO UPSET STOMACH; Start 09/01/21 at 17:30 Info (Non-Icu Electrolyte Protocol) 1 ea PRN DAILY PRN MC SEE COMMENTS; Start 09/01/21 at 17:30 Acetaminophen/ Hydrocodone Bitart (Lortab 5/325) 1 tab PRN Q4HRS PRN PO MILD PAIN 1-3 Last administered on 09/02/21at 23:47; Start 09/01/21 at 17:30 Acetaminophen/ Hydrocodone Bitart (Lortab 5/325) 2 tab PRN Q4HRS PRN PO MODERATE PAIN, SEVERE PAIN; Start 09/01/21 at 17:30 Acetaminophen (Tylenol) 650 mg PRN Q6HRS PRN PO Headaches, Temp > 101.5F Last administered on 09/02/21at 00:59; Start 09/01/21 at 17:30 Senna/Docusate Sodium (Senna Plus) 1 tab BID PO Last administered on 09/02/21at 21:54; Start 09/01/21 at 21:00 Heparin Sodium (Porcine) (Heparin Sodium) 5,000 unit Q12HR SQ Last administered on 09/02/21at 21:59; Start 09/01/21 at 18:00 Ceftriaxone Sodium (Rocephin) 1 gm Q24H IVP Last administered on 09/02/21at 21:53; Start 09/01/21 at 18:00 Triamcinolone Acetonide (Kenalog-40) 40 mg 1X ONCE INT ART ; Start 09/02/21 at 09:30; Stop 09/02/21 at 09:31; Status DC Triamcinolone Acetonide (Kenalog-40) 40 mg 1X ONCE INT ART ; Start 09/02/21 at 09:30; Stop 09/02/21 at 09:31; Status DC Bupivacaine HCl (Sensorcaine-Mpf 0.25%) 10 ml 1X ONCE IJ ; Start 09/02/21 at 09:30; Stop 09/02/21 at 09:31; Status DC Sodium Phosphate 20 mmol/Sodium Chloride 256.6667 ml @ 64.167 m... 1X ONCE IV Last administered on 09/02/21at 15:36; Start 09/02/21 at 16:00; Stop 09/02/21 at 19:59; Status DC Sodium Chloride 1,000 ml @ 75 mls/hr [id number] IV Last administered on 09/02/21at 14:45; Start 09/02/21 at 14:45 Lactobacillus Rhamnosus (Culturelle) 1 cap BID PO Last administered on 09/02/21at 21:54; Start 09/02/21 at 21:00 Active Scripts Active Prednisone (Prednisone) 10 Mg Tablet 10 Mg PO UD 20 Days 2 tabs PO daily for 10 days Then 1 tablet by mouth daily for 10 days. Then ask for labs for CRP and sed rate Atorvastatin Calcium 20 Mg Tablet 20 Mg PO QHS 30 Days Reported Hydrocodone-Acetamin 5-325 mg (Hydrocodone/Acetaminophen) 1 Each Tablet 5 Mg DAILY Acetaminophen 500 Mg Tablet 1,000 Mg PO PRN Q6HRS PRN Prolia (Denosumab) 60 Mg/1 Ml Disp.syrin 60 Mg SQ EVERY 6 MONTHS Colestipol Hcl 1 Gm Tablet 1 Gm PO DAILY Vitamin B12 (Cyanocobalamin (Vitamin B-12)) 2,500 Mcg Tablet 1 Tab PO DAILY 30 Days Omeprazole 20 Mg Capsule. 1 Cap PO DAILY Gabapentin (Gabapentin) 300 Mg Capsule 300 Mg PO TID Aspirin 81 Mg Tab.chew 1 Tab PO DAILY Calcium 600 + D Tablet (Calcium Carbonate/Vitamin D3) 1 Each Tablet 1 Each PO DAILY Multi Vitamin Daily (Multivitamin) 1 Each Tablet 1 Each PO DAILY Lisinopril 10 Mg Tablet 10 Mg PO DAILY Vitals/I & O Vital Sign - Last 24 Hours 09/02/21 09/02/21 09/02/21 09/02/21 09:50 11:00 15:00 19:00 Temp 98.3 98.8 97.9 98.3 98.8 97.9 Pulse 100 104 111 Resp 19 19 20 16 B/P (MAP) 163/89 (113) 163/79 (107) 167/80 (109) Pulse Ox 93 95 95 95 O2 Delivery Room Air Room Air Room Air Room Air 09/02/21 09/02/21 09/02/21 09/02/21 20:10 21:55 22:25 23:00 Temp 98.2 98.2 Pulse 111 Resp 18 B/P (MAP) 172/86 (114) Pulse Ox 95 94 94 O2 Delivery Room Air Room Air Room Air Room Air 09/02/21 09/03/21 09/03/21 09/03/21 23:47 00:17 03:19 07:00 Temp 97.7 97.8 97.7 97.8 Pulse 107 98 Resp 20 18 B/P (MAP) 187/79 (115) 182/97 (125) Pulse Ox 94 94 93 96 O2 Delivery Room Air Room Air Room Air Room Air Intake and Output 09/02/21 09/02/21 09/03/21 15:00 23:00 07:00 Intake Total 240 ml Output Total 400 ml 100 ml 200 ml Balance -160 ml -100 ml -200 ml Justifications for Admission Other Justification Generalized weakness and lower extremity cellulitis STACIE ANGUIANO MD Sep 03, 2021 09:43
[2021-09-03] MEDS: HEPARIN for SUB-Q USE 5,000 UNIT/ML VIAL. SQ SCH ×2 (09:52→22:29)
[2021-09-03 11:00] VITALS: BP 159/79
--- NOTE | 2021-09-03 11:01 | PDOC ---
[employer] PROGRESS NOTE Date of Service DOS: DATE: 09/03/21 TIME: 10:59 Chief Complaint Chief Complaint Chronic back pain. Hyponatremia hyperkalemia normal creatinine. History CHF GERD hypertension UTI. History of Present Illness History of Present Illness 09/03/2021 Patient seen and examined Discussed with her daughter Reviewed the chart with her daughter Discussed with RN Discussed with case management Occupational Therapy feels the patient needs to go to [facility] in a day or so This morning the patient did eat 50% of her breakfast Currently has IV normal saline hanging at 75 cc an hour 09/02/2021 Patient seen On commode currently Discussed with RN Discussed with case management Chart reviewed Vitals/I&O Vitals/I&O: Vital Signs Date Time Temp Pulse Resp B/P (MAP) Pulse Ox O2 Delivery O2 Flow Rate FiO2 09/03/21 09:42 98 182/97 09/03/21 09:41 20 93 Room Air 09/03/21 07:00 97.8 97.8 I & O 09/02/21 09/02/21 09/03/21 15:00 23:00 07:00 Intake Total 240 ml Output Total 400 ml 100 ml 200 ml Balance -160 ml -100 ml -200 ml Physical Exam General: Alert, Oriented X3, Cooperative, mild distress Lungs: Clear Extremities: Other (She had tenderness to palaption over medial and lateral knee joint line and over both hands and over posterior shoulder girdle muscles bilaterally.) Labs Labs: Laboratory Tests Test 09/03/21 06:35 Sodium Level 127 mmol/L (136-145) Potassium Level 3.9 mmol/L (3.5-5.1) Chloride Level 94 mmol/L (98-107) Carbon Dioxide Level 23 mmol/L (21-32) Anion Gap 10 (6-14) Blood Urea Nitrogen 9 mg/dL (7-20) Creatinine 0.5 mg/dL (0.6-1.0) Estimated GFR (Cockcroft-Gault) 117.3 Glucose Level 113 mg/dL (70-99) Calcium Level 8.4 mg/dL (8.5-10.1) Assessment and Plan Assessmemt and Plan Problems Medical Problems: (1) Body aches Status: Acute (2) Hyperkalemia Status: Acute Chronic back pain. Hyponatremia hyperkalemia normal creatinine. History CHF GERD hypertension UTI. Leukocytosis Plan IV antibiotics Trend labs Home meds DVT prophylaxis Full code Encourage p.o. intake Continue IV fluids As needed pain meds PT OT Suspect she will need [facility] and Occupational Therapy agrees Comment Review of Relevant I have reviewed the following items pete (where applicable) has been applied. Medications: Current Medications Medications (Trade) Dose Ordered Sig/Mason Route PRN Reason Start Time Stop Time Status Last Admin Dose Admin Sodium Phosphate 20 mmol/Sodium Chloride 256.6667 ml @ 64.167 m... 1X ONCE IV 09/02/21 16:00 09/02/21 19:59 DC 09/02/21 15:36 Sodium Chloride 1,000 ml @ 75 mls/hr [id number] IV 09/02/21 14:45 09/02/21 14:45 Lactobacillus Rhamnosus (Culturelle) 1 cap BID PO 09/02/21 21:00 09/03/21 09:42 Justifications for Admission Other Justification Generalized weakness and lower extremity cellulitis PATIENCE GUAN III DO Sep 03, 2021 11:01
--- NOTE | 2021-09-03 11:04 | PDOC ---
DATE OF SERVICE DATE: 09/03/21 TIME: 11:02 SUBJECTIVE ROS States feeling better Daughter at [place], reports she had good Dinner and Breakfast No N/V. No SOB OBJECTIVE Vital Signs Vital Signs Date Time Temp Pulse Resp B/P (MAP) Pulse Ox O2 Delivery O2 Flow Rate FiO2 09/03/21 09:42 98 182/97 09/03/21 09:41 20 93 Room Air 09/03/21 07:00 97.8 97.8 I & 0 Intake and Output 09/03/21 07:00 Intake Total 240 ml Output Total 700 ml Balance -460 ml Intake Oral 240 ml Output Urine Total 700 ml # Voids 7 PHYSICAL EXAM Physical Exam GEN NAD, lying flat HEEN OM mildly dry, An icteric Neck Supple Lungs CTA, Non labored CV S1S2 Abd Soft, NT Ext No LE edeam, No cyanosis No Purvis, No CAV or SP tenderness sKIN No RAsh DIAGNOSIS/ASSESSMENT Assessment & Plan HypoNatremia --Has Mild Chronic HypoNa 127-132 with Na of 120 in 2018 . TSH normal . Improving slowly . Continue IV NS, Strict I/O ,increase Na in diet .m onitor Reps status Check Serum and urine Osm Chronic back pain- No acute changes on spinal imaging. consulted Hyperkalemia POA - Mild, resolved HypoPhos- Replaced IV, Recheck in am Renal Cyst- reported Ct scan 2018(Renal not consulted) Multiple small hyperdense lesions in the kidneys bilaterally with the largest at the lower pole the left kidney measuring 1.8 cm in size. These may represent hemorrhagic cysts. Diff erential would include angiomyolipoma renal cell carcinoma. Patient reports she was transferred to [facility] due to Ct findings, was seen by urology at [facility]- with Cyst with no further swan recommended History CHF - Compensated currently Hypertension BP high , continue meds COMMENT/RELEVANT DATA Meds Current Medications Medications (Trade) Dose Ordered Sig/Mason Start Time Stop Time Status Last Admin Dose Admin Acetaminophen (Tylenol) 650 mg PRN Q6HRS PRN 09/01/21 17:30 09/02/21 00:59 650 MG Acetaminophen/ Hydrocodone Bitart (Lortab 5/325) 2 tab PRN Q4HRS PRN 09/01/21 17:30 Aspirin (Aspirin Chewable) 81 mg DAILY 09/02/21 09:00 09/03/21 09:42 81 MG Atorvastatin Calcium (Lipitor) 20 mg QHS 09/01/21 21:00 09/02/21 21:54 20 MG Bupivacaine HCl (Sensorcaine-Mpf 0.25%) 10 ml 1X ONCE 09/02/21 09:30 09/02/21 09:31 DC Calcium Carbonate/ Glycine (Tums) 500 mg PRN Q3HRS PRN 09/01/21 17:30 Calcium/Vitamin D (Oscal D 500mg/ 200uts) 1 tab DAILY 09/02/21 09:00 09/03/21 09:43 1 TAB Ceftriaxone Sodium (Rocephin) 1 gm Q24H 09/01/21 18:00 09/02/21 21:53 1 GM Colestipol HCl (Colestid) 1 gm DAILY@1000 09/02/21 10:00 09/03/21 09:43 1 GM Cyanocobalamin (Vitamin B-12) 2,500 mcg DAILY 09/02/21 09:00 09/03/21 09:42 2,500 MCG Gabapentin (Neurontin) 300 mg TID 09/01/21 21:00 09/03/21 09:43 300 MG Heparin Sodium (Porcine) (Heparin Sodium) 5,000 unit Q12HR 09/01/21 18:00 09/03/21 09:52 5,000 UNIT Info (Non-Icu Electrolyte Protocol) 1 ea PRN DAILY PRN 09/01/21 17:30 Lactobacillus Rhamnosus (Culturelle) 1 cap BID 09/02/21 21:00 09/03/21 09:42 1 CAP Lidocaine (Lidoderm) 1 patch DAILY 09/03/21 09:00 Lisinopril (Prinivil) 10 mg DAILY 09/02/21 09:00 09/03/21 09:42 10 MG Miscellaneous (Lidoderm Patch Removal) 1 ea QHS 09/03/21 21:00 Multivitamins (Thera M Plus) 1 tab DAILY 09/02/21 09:00 09/03/21 09:43 1 TAB Ondansetron HCl (Zofran) 4 mg PRN Q6HRS PRN 09/01/21 17:30 Pantoprazole Sodium (Protonix) 40 mg DAILYAC 09/02/21 07:30 09/02/21 09:20 40 MG Prednisone (Prednisone) 10 mg DAILY 09/02/21 09:00 09/03/21 09:42 10 MG Senna/Docusate Sodium (Senna Plus) 1 tab BID 09/01/21 21:00 09/03/21 09:43 1 TAB Sodium Chloride 1,000 ml @ 75 mls/hr [id number] 09/02/21 14:45 09/02/21 14:45 75 MLS/HR Sodium Phosphate 20 mmol/Sodium Chloride 256.6667 ml @ 64.167 m... 1X ONCE 09/02/21 16:00 09/02/21 19:59 DC 09/02/21 15:36 64.167 MLS/HR Triamcinolone Acetonide (Kenalog-40) 40 mg 1X ONCE 09/02/21 09:30 09/02/21 09:31 DC Lab Laboratory Tests Test 09/03/21 06:35 Sodium Level 127 mmol/L (136-145) Potassium Level 3.9 mmol/L (3.5-5.1) Chloride Level 94 mmol/L (98-107) Carbon Dioxide Level 23 mmol/L (21-32) Anion Gap 10 (6-14) Blood Urea Nitrogen 9 mg/dL (7-20) Creatinine 0.5 mg/dL (0.6-1.0) Estimated GFR (Cockcroft-Gault) 117.3 Glucose Level 113 mg/dL (70-99) Calcium Level 8.4 mg/dL (8.5-10.1) Results All relevant outside records, renal labs, imaging studies, telemetry/EKG's were reviewed. Justicifation of Admission Dx: Justifications for Admission: Justification of Admission Dx: Yes Chronic Renal Failure: Electrolyte Abnormality Cellulitis: Cellulitis RE RUDOLPH MD Sep 03, 2021 11:04
[2021-09-03] MEDS: LIDOCAINE (700MG/PATCH) PATCH. TD SCH (11:43)
[2021-09-03 13:30] LABS: UR POTASSIUM 23.3 mmol/L (Not Estab.)
--- NOTE | 2021-09-03 14:36 | NUR ---
SS following for discharge planning. SS reviewed pt chart and discussed with pt RN. Pt is from home and is currently on room air. COVID19 negative on rapid. Pt on IV Rocephin. PT/OT recommended [facility]. SS met with pt and family in room and discussed discharge planning and [facility]. Pt's family requesting referral to [facility], ; fax [phone]. Referral phoned and faxed as requested. COVID19 PCR requested for placement. SS will continue to follow for discharge planning.
[2021-09-03 15:00] VITALS: BP 156/79
[2021-09-03] MEDS: cefTRIAXone IV Push 1 GM VIAL. IVP SCH (17:50)
[2021-09-03 19:00] VITALS: BP 177/87
[2021-09-03] MEDS: PATCH REMOVAL. MC SCH (21:00)
[2021-09-03] MEDS: ATORVASTATIN CALCIUM 20 MG TABLET PO SCH (22:19)
[2021-09-03 23:04] VITALS: BP 93/84
[2021-09-04] VITALS (7 sets, daily range): BP systolic 146–193; BP diastolic 74–92
[2021-09-04] MEDS: IV NORMAL SALINE 1000ML BAG 1,000 ML IV SCH ×2 (06:15→22:33)
[2021-09-04 08:04] LABS: BASO % 0 % (0-3); EOS % 0 % (0-3); HEMATOCRIT 27.5 % (36.0-47.0); HEMOGLOBIN 9.7 g/dL (12.0-15.5); LYMPH # 0.6 x10^3/uL (1.0-4.8); LYMPH % 8 % (24-48); MEAN CORPUSCULAR HEMOGLOBIN 35 pg (25-35); MEAN CORPUSCULAR HGB CONC 35 g/dL (31-37); MEAN CORPUSCULAR VOLUME 99 fL (79-100); MONO # 0.6 x10^3/uL (0.0-1.1); MONO % 8 % (0-9); NEUT # 6.7 x10^3/uL (1.8-7.7); NEUT % 84 % (31-73); PLATELET COUNT 433 x10^3/uL (140-400); RED BLOOD COUNT 2.77 x10^6/uL (3.50-5.40)
[2021-09-04] MEDS: PANTOPRAZOLE 40 MG TABLET.DR. PO SCH (08:11)
[2021-09-04] MEDS: HYDROcodone/APAP 5/325MG 1 TAB TABLET PO PRN (08:12)
[2021-09-04 08:21] LABS: CALCIUM 7.8 mg/dL (8.5-10.1); CREATININE 0.5 mg/dL (0.6-1.0); GFR 117.3; POTASSIUM 3.5 mmol/L (3.5-5.1)
--- NOTE | 2021-09-04 09:51 | PDOC ---
DATE OF SERVICE DATE: 09/04/21 TIME: 09:51 SUBJECTIVE ROS States feeling better Daughters at [place], No N/V. No SOB Good appetite OBJECTIVE Vital Signs Vital Signs Date Time Temp Pulse Resp B/P (MAP) Pulse Ox O2 Delivery O2 Flow Rate FiO2 09/04/21 09:00 97 152/74 (100) 09/04/21 08:16 Room Air 09/04/21 07:00 97.7 18 94 97.7 I & 0 Intake and Output 09/04/21 07:00 Intake Total 975 ml Output Total 300 ml Balance 675 ml IV Total 975 ml Output Urine Total 300 ml # Voids 2 # Bowel Movements 1 PHYSICAL EXAM Physical Exam GEN NAD, lying flat HEEN OM mildly dry, An icteric Neck Supple Lungs CTA, Non labored CV S1S2 Abd Soft, NT Ext No LE edeam, No cyanosis No Purvis, No CAV or SP tenderness sKIN No RAsh HypoNatremia --Has Mild Chronic HypoNa 127-132 with Na of 120 in 2018 . TSH normal . Improving slowly . DC IV NS, encourage PO salty food , Strict I/O Serum osm cw SIADH , Ur Osm not reported, Ur Na > 20 , Cortisol Normal Chronic back pain- No acute changes on spinal imaging. consulted Hyperkalemia POA - Mild, resolved HypoPhos- Replace IV Renal Cyst- reported Ct scan 2018(Renal not consulted) Multiple small hyperdense lesions in the kidneys bilaterally with the largest at the lower pole the left kidney measuring 1.8 cm in size. These may represent hemorrhagic cysts. Differential would include angiomyolipoma renal cell carcinoma. Patient reports she was transferred to [facility] due to Ct findings, was seen by urology at [facility]- with Cyst with no further swan recommended History CHF - Compensated currently Hypertension BP high , continue meds DIAGNOSIS/ASSESSMENT Assessment & Plan ESRD/ARF: Current fluid and E-lyte status does not necessitate emergent need for dialysis. Will re-evaluate for dialysis in the am and continue on [] schedule. ANEMIA; [] Aranap as ordered, [] Transfuse [] with next HD as needed HTN: Current BP meds as reviewed. See orders for changes. BONE & MINERAL: [] Discussed Plan of Care with family [] at bedside [] over the phone COMMENT/RELEVANT DATA Meds Current Medications Medications (Trade) Dose Ordered Sig/Mason Start Time Stop Time Status Last Admin Dose Admin Acetaminophen (Tylenol) 650 mg PRN Q6HRS PRN 09/01/21 17:30 09/02/21 00:59 650 MG Acetaminophen/ Hydrocodone Bitart (Lortab 5/325) 2 tab PRN Q4HRS PRN 09/01/21 17:30 09/04/21 08:12 2 TAB Aspirin (Aspirin Chewable) 81 mg DAILY 09/02/21 09:00 09/03/21 09:42 81 MG Atorvastatin Calcium (Lipitor) 20 mg QHS 09/01/21 21:00 09/03/21 22:19 20 MG Bupivacaine HCl (Sensorcaine-Mpf 0.25%) 10 ml 1X ONCE 09/02/21 09:30 09/02/21 09:31 DC Calcium Carbonate/ Glycine (Tums) 500 mg PRN Q3HRS PRN 09/01/21 17:30 Calcium/Vitamin D (Oscal D 500mg/ 200uts) 1 tab DAILY 09/02/21 09:00 09/03/21 09:43 1 TAB Ceftriaxone Sodium (Rocephin) 1 gm Q24H 09/01/21 18:00 09/03/21 17:50 1 GM Colestipol HCl (Colestid) 1 gm DAILY@1000 09/02/21 10:00 09/03/21 09:43 1 GM Cyanocobalamin (Vitamin B-12) 2,500 mcg DAILY 09/02/21 09:00 09/03/21 09:42 2,500 MCG Gabapentin (Neurontin) 300 mg TID 09/01/21 21:00 09/03/21 22:19 300 MG Heparin Sodium (Porcine) (Heparin Sodium) 5,000 unit Q12HR 09/01/21 18:00 09/03/21 22:29 5,000 UNIT Info (Non-Icu Electrolyte Protocol) 1 ea PRN DAILY PRN 09/01/21 17:30 Lactobacillus Rhamnosus (Culturelle) 1 cap BID 09/02/21 21:00 09/03/21 22:18 1 CAP Lidocaine (Lidoderm) 1 patch DAILY 09/03/21 09:00 09/03/21 11:43 1 PATCH Lisinopril (Prinivil) 10 mg DAILY 09/02/21 09:00 09/03/21 09:42 10 MG Miscellaneous (Lidoderm Patch Removal) 1 ea QHS 09/03/21 21:00 Multivitamins (Thera M Plus) 1 tab DAILY 09/02/21 09:00 09/03/21 09:43 1 TAB Ondansetron HCl (Zofran) 4 mg PRN Q6HRS PRN 09/01/21 17:30 Pantoprazole Sodium (Protonix) 40 mg DAILYAC 09/02/21 07:30 09/04/21 08:11 40 MG Prednisone (Prednisone) 10 mg DAILY 09/02/21 09:00 09/03/21 09:42 10 MG Senna/Docusate Sodium (Senna Plus) 1 tab BID 09/01/21 21:00 09/03/21 22:18 1 TAB Sodium Chloride 1,000 ml @ 75 mls/hr [id number] 09/02/21 14:45 09/04/21 06:15 75 MLS/HR Sodium Phosphate 20 mmol/Sodium Chloride 256.6667 ml @ 64.167 m... 1X ONCE 09/02/21 16:00 09/02/21 19:59 DC 09/02/21 15:36 64.167 MLS/HR Triamcinolone Acetonide (Kenalog-40) 40 mg 1X ONCE 09/02/21 09:30 09/02/21 09:31 DC Lab Laboratory Tests Test 09/04/21 07:41 White Blood Count 8.0 x10^3/uL (4.0-11.0) Red Blood Count 2.77 x10^6/uL (3.50-5.40) Hemoglobin 9.7 g/dL (12.0-15.5) Hematocrit 27.5 % (36.0-47.0) Mean Corpuscular Volume 99 fL (79-100) Mean Corpuscular Hemoglobin 35 pg (25-35) Mean Corpuscular Hemoglobin Concent 35 g/dL (31-37) Red Cell Distribution Width 14.0 % (11.5-14.5) Platelet Count 433 x10^3/uL (140-400) Neutrophils (%) (Auto) 84 % (31-73) Lymphocytes (%) (Auto) 8 % (24-48) Monocytes (%) (Auto) 8 % (0-9) Eosinophils (%) (Auto) 0 % (0-3) Basophils (%) (Auto) 0 % (0-3) Neutrophils # (Auto) 6.7 x10^3/uL (1.8-7.7) Lymphocytes # (Auto) 0.6 x10^3/uL (1.0-4.8) Monocytes # (Auto) 0.6 x10^3/uL (0.0-1.1) Eosinophils # (Auto) 0.0 x10^3/uL (0.0-0.7) Basophils # (Auto) 0.0 x10^3/uL (0.0-0.2) Sodium Level 132 mmol/L (136-145) Potassium Level 3.5 mmol/L (3.5-5.1) Chloride Level 99 mmol/L (98-107) Carbon Dioxide Level 23 mmol/L (21-32) Anion Gap 10 (6-14) Blood Urea Nitrogen 5 mg/dL (7-20) Creatinine 0.5 mg/dL (0.6-1.0) Estimated GFR (Cockcroft-Gault) 117.3 Glucose Level 99 mg/dL (70-99) Calcium Level 7.8 mg/dL (8.5-10.1) Phosphorus Level 2.0 mg/dL (2.6-4.7) Results All relevant outside records, renal labs, imaging studies, telemetry/EKG's were reviewed. Justicifation of Admission Dx: Justifications for Admission: Justification of Admission Dx: Yes Chronic Renal Failure: Electrolyte Abnormality Cellulitis: Cellulitis RE RUDOLPH MD Sep 04, 2021 09:51
[2021-09-04] MEDS: GABAPENTIN 300 MG CAPSULE. PO SCH ×3 (10:19→22:22)
[2021-09-04] MEDS: ASPIRIN CHEWABLE 81 MG TABLET. PO SCH (10:19)
[2021-09-04] MEDS: MULTIVITAMIN with MINERAL TABLET. PO SCH (10:19)
[2021-09-04] MEDS: CALCIUM CARB/VIT D3 500/200 TABLET. PO SCH (10:19)
[2021-09-04] MEDS: LACTOBACILLUS RHAMNOSUS GG 1 CAPSULE. PO SCH ×2 (10:19→22:22)
[2021-09-04] MEDS: COLESTIPOL HCL 1 GM TABLET PO SCH (10:19)
[2021-09-04] MEDS: predniSONE 10 MG TABLET PO SCH (10:19)
[2021-09-04] MEDS: SENNOSIDES/DOCUSATE 8.6/50MG TABLET. PO SCH ×2 (10:20→22:22)
[2021-09-04] MEDS: LISINOPRIL 10 MG TABLET PO SCH (10:20)
[2021-09-04] MEDS: CYANOCOBALAMIN (VITAMIN B-12) 1,000 MCG TABLET. PO SCH (10:20)
[2021-09-04] MEDS: LIDOCAINE (700MG/PATCH) PATCH. TD SCH (10:22)
[2021-09-04] MEDS: HEPARIN for SUB-Q USE 5,000 UNIT/ML VIAL. SQ SCH ×2 (10:35→22:31)
[2021-09-04] MEDS ORDERED: SODIUM PHOSPHATE 20 MMOL in IV NORMAL SALINE 250ML 250 ML IV ONE (11:00)
--- NOTE | 2021-09-04 12:56 | PDOC ---
[employer] PROGRESS NOTE Date of Service DOS: DATE: 09/04/21 TIME: 12:49 Chief Complaint Chief Complaint Chronic back pain. Hyponatremia hyperkalemia normal creatinine. History CHF GERD hypertension UTI. History of Present Illness History of Present Illness 09/04/2021 No acute events overnight. Patient seen examined bedside. Daughters are with her. Pain is improved. Sodium improved to 132. Nephrology following. We will continue IV NS. Instructed to increase salt in diet. At least 2 g/day. Voltaren gel ordered for extremity pain. Plan for SNF at [place]. PCR pending for COVID. 09/03/2021 Patient seen and examined Discussed with her daughter Reviewed the chart with her daughter Discussed with RN Discussed with case management Occupational Therapy feels the patient needs to go to [facility] in a day or so This morning the patient did eat 50% of her breakfast Currently has IV normal saline hanging at 75 cc an hour 09/02/2021 Patient seen On commode currently Discussed with RN Discussed with case management Chart reviewed Vitals/I&O Vitals/I&O: Vital Signs Date Time Temp Pulse Resp B/P (MAP) Pulse Ox O2 Delivery O2 Flow Rate FiO2 09/04/21 11:00 98.1 87 18 146/76 (99) 95 98.1 09/04/21 08:16 Room Air I & O 09/03/21 09/03/21 09/04/21 15:00 23:00 07:00 Intake Total 975 ml Output Total 300 ml Balance 975 ml -300 ml Physical Exam General: Alert, Oriented X3, Cooperative, mild distress Lungs: Clear Extremities: Other (She had tenderness to palaption over medial and lateral knee joint line and over both hands and over posterior shoulder girdle muscles bilaterally.) Labs Labs: Laboratory Tests Test 09/04/21 07:41 White Blood Count 8.0 x10^3/uL (4.0-11.0) Red Blood Count 2.77 x10^6/uL (3.50-5.40) Hemoglobin 9.7 g/dL (12.0-15.5) Hematocrit 27.5 % (36.0-47.0) Mean Corpuscular Volume 99 fL (79-100) Mean Corpuscular Hemoglobin 35 pg (25-35) Mean Corpuscular Hemoglobin Concent 35 g/dL (31-37) Red Cell Distribution Width 14.0 % (11.5-14.5) Platelet Count 433 x10^3/uL (140-400) Neutrophils (%) (Auto) 84 % (31-73) Lymphocytes (%) (Auto) 8 % (24-48) Monocytes (%) (Auto) 8 % (0-9) Eosinophils (%) (Auto) 0 % (0-3) Basophils (%) (Auto) 0 % (0-3) Neutrophils # (Auto) 6.7 x10^3/uL (1.8-7.7) Lymphocytes # (Auto) 0.6 x10^3/uL (1.0-4.8) Monocytes # (Auto) 0.6 x10^3/uL (0.0-1.1) Eosinophils # (Auto) 0.0 x10^3/uL (0.0-0.7) Basophils # (Auto) 0.0 x10^3/uL (0.0-0.2) Sodium Level 132 mmol/L (136-145) Potassium Level 3.5 mmol/L (3.5-5.1) Chloride Level 99 mmol/L (98-107) Carbon Dioxide Level 23 mmol/L (21-32) Anion Gap 10 (6-14) Blood Urea Nitrogen 5 mg/dL (7-20) Creatinine 0.5 mg/dL (0.6-1.0) Estimated GFR (Cockcroft-Gault) 117.3 Glucose Level 99 mg/dL (70-99) Calcium Level 7.8 mg/dL (8.5-10.1) Phosphorus Level 2.0 mg/dL (2.6-4.7) Assessment and Plan Assessmemt and Plan Problems Medical Problems: (1) Body aches Status: Acute (2) Hyperkalemia Status: Acute Comment Review of Relevant I have reviewed the following items pete (where applicable) has been applied. Medications: Current Medications Medications (Trade) Dose Ordered Sig/Mason Route PRN Reason Start Time Stop Time Status Last Admin Dose Admin Sodium Phosphate 20 mmol/Sodium Chloride 256.6667 ml @ 64.167 m... 1X ONCE IV 09/04/21 11:00 09/04/21 14:59 09/04/21 10:58 Justifications for Admission Other Justification Generalized weakness and lower extremity cellulitis KALI SWANSON MD Sep 04, 2021 12:56
[2021-09-04] MEDS: DICLOFENAC SODIUM 1% TOPICAL GEL 100GM TUBE. TP SCH ×2 (13:56→22:32)
--- NOTE | 2021-09-04 15:12 | PDOC ---
PROGRESS NOTES Date of Service DATE: 09/04/21 TIME: 15:08 Subjective Subjective She feels better but admits continued upper back and knee joint pain. Objective Objective Vital Signs Date Time Temp Pulse Resp B/P (MAP) Pulse Ox O2 Delivery O2 Flow Rate FiO2 09/04/21 11:00 98.1 87 18 146/76 (99) 95 98.1 09/04/21 08:16 Room Air Intake and Output 09/04/21 07:00 Intake Total 975 ml Output Total 300 ml Balance 675 ml IV Total 975 ml Output Urine Total 300 ml # Voids 2 # Bowel Movements 1 Physical Exam Physical Exam She is alert,supine in bed with head end propped up and she continues with painfully limited knee joint ROM. Assessment Assessment Problems Medical Problems: (1) Body aches Status: Acute (2) Hyperkalemia Status: Acute Plan Plan of Care At her request,I have injected her both knee joints under aseptic skin technique with alcohol skin technique with 4 ml of 0.25% marcaine solution mixed with 2 ml of kenalog 40 mg/ 1 ml solution and she tolerated the procedures satisfactorily without any side effects. To she how she gets up and walk before plans for discharge to home or SNF. Comment Review of Relevant I have reviewed the following items pete (where applicable) has been applied. Labs Laboratory Tests Test 09/02/21 15:35 09/02/21 20:00 09/03/21 00:15 09/03/21 06:35 Plasma/Serum Osmolality 265 mOsmol/kg (280-301) Urine Random Chloride 64 mmol/L (Not Estab.) Urine Sodium 71 mmol/L (Not Estab.) 65 mmol/L (Not Estab.) Urine Sodium 24 Hour 138 mmol/24 hr (23-207) Urine Potassium 23.3 mmol/L (Not Estab.) 22.0 mmol/L (Not Estab.) Urine Potassium 24 Hour 45 mmol/24 hr (6-67) Urine Chloride 24 Hour 125 mmol/24 hr (4-148) Urine Osmolality 300 mOsmol/kg (.) Urine Chloride 53 mmol/L (Not Estab.) Sodium Level 127 mmol/L (136-145) Potassium Level 3.9 mmol/L (3.5-5.1) Chloride Level 94 mmol/L (98-107) Carbon Dioxide Level 23 mmol/L (21-32) Anion Gap 10 (6-14) Blood Urea Nitrogen 9 mg/dL (7-20) Creatinine 0.5 mg/dL (0.6-1.0) Estimated GFR (Cockcroft-Gault) 117.3 Glucose Level 113 mg/dL (70-99) Calcium Level 8.4 mg/dL (8.5-10.1) Test 09/04/21 07:41 White Blood Count 8.0 x10^3/uL (4.0-11.0) Red Blood Count 2.77 x10^6/uL (3.50-5.40) Hemoglobin 9.7 g/dL (12.0-15.5) Hematocrit 27.5 % (36.0-47.0) Mean Corpuscular Volume 99 fL (79-100) Mean Corpuscular Hemoglobin 35 pg (25-35) Mean Corpuscular Hemoglobin Concent 35 g/dL (31-37) Red Cell Distribution Width 14.0 % (11.5-14.5) Platelet Count 433 x10^3/uL (140-400) Neutrophils (%) (Auto) 84 % (31-73) Lymphocytes (%) (Auto) 8 % (24-48) Monocytes (%) (Auto) 8 % (0-9) Eosinophils (%) (Auto) 0 % (0-3) Basophils (%) (Auto) 0 % (0-3) Neutrophils # (Auto) 6.7 x10^3/uL (1.8-7.7) Lymphocytes # (Auto) 0.6 x10^3/uL (1.0-4.8) Monocytes # (Auto) 0.6 x10^3/uL (0.0-1.1) Eosinophils # (Auto) 0.0 x10^3/uL (0.0-0.7) Basophils # (Auto) 0.0 x10^3/uL (0.0-0.2) Sodium Level 132 mmol/L (136-145) Potassium Level 3.5 mmol/L (3.5-5.1) Chloride Level 99 mmol/L (98-107) Carbon Dioxide Level 23 mmol/L (21-32) Anion Gap 10 (6-14) Blood Urea Nitrogen 5 mg/dL (7-20) Creatinine 0.5 mg/dL (0.6-1.0) Estimated GFR (Cockcroft-Gault) 117.3 Glucose Level 99 mg/dL (70-99) Calcium Level 7.8 mg/dL (8.5-10.1) Phosphorus Level 2.0 mg/dL (2.6-4.7) Laboratory Tests Test 09/04/21 07:41 White Blood Count 8.0 x10^3/uL (4.0-11.0) Red Blood Count 2.77 x10^6/uL (3.50-5.40) Hemoglobin 9.7 g/dL (12.0-15.5) Hematocrit 27.5 % (36.0-47.0) Mean Corpuscular Volume 99 fL (79-100) Mean Corpuscular Hemoglobin 35 pg (25-35) Mean Corpuscular Hemoglobin Concent 35 g/dL (31-37) Red Cell Distribution Width 14.0 % (11.5-14.5) Platelet Count 433 x10^3/uL (140-400) Neutrophils (%) (Auto) 84 % (31-73) Lymphocytes (%) (Auto) 8 % (24-48) Monocytes (%) (Auto) 8 % (0-9) Eosinophils (%) (Auto) 0 % (0-3) Basophils (%) (Auto) 0 % (0-3) Neutrophils # (Auto) 6.7 x10^3/uL (1.8-7.7) Lymphocytes # (Auto) 0.6 x10^3/uL (1.0-4.8) Monocytes # (Auto) 0.6 x10^3/uL (0.0-1.1) Eosinophils # (Auto) 0.0 x10^3/uL (0.0-0.7) Basophils # (Auto) 0.0 x10^3/uL (0.0-0.2) Sodium Level 132 mmol/L (136-145) Potassium Level 3.5 mmol/L (3.5-5.1) Chloride Level 99 mmol/L (98-107) Carbon Dioxide Level 23 mmol/L (21-32) Anion Gap 10 (6-14) Blood Urea Nitrogen 5 mg/dL (7-20) Creatinine 0.5 mg/dL (0.6-1.0) Estimated GFR (Cockcroft-Gault) 117.3 Glucose Level 99 mg/dL (70-99) Calcium Level 7.8 mg/dL (8.5-10.1) Phosphorus Level 2.0 mg/dL (2.6-4.7) Microbiology 09/01/21 Urine Culture - Final, Complete Medications Current Medications Sodium Chloride 1,000 ml @ 1,000 mls/hr 1X ONCE IV Last administered on 09/01/21at 15:40; Start 09/01/21 at 15:30; Stop 09/01/21 at 16:29; Status DC Sodium Chloride 1,000 ml @ 1,000 mls/hr 1X ONCE IV Last administered on 09/01/21at 17:15; Start 09/01/21 at 17:15; Stop 09/01/21 at 18:14; Status DC Aspirin (Aspirin Chewable) 81 mg DAILY PO Last administered on 09/04/21at 10:19; Start 09/02/21 at 09:00 Atorvastatin Calcium (Lipitor) 20 mg QHS PO Last administered on 09/03/21at 22:19; Start 09/01/21 at 21:00 Colestipol HCl (Colestid) 1 gm DAILY@1000 PO Last administered on 09/04/21 10:19; Start 09/02/21 at 10:00 Gabapentin (Neurontin) 300 mg TID PO Last administered on 09/04/21at 14:00; Start 09/01/21 at 21:00 Lisinopril (Prinivil) 10 mg DAILY PO Last administered on 09/04/21at 10:20; Start 09/02/21 at 09:00 Prednisone (Prednisone) 10 mg DAILY PO Last administered on 09/04/21 10:19; Start 09/02/21 at 09:00 Calcium/Vitamin D (Oscal D 500mg/ 200uts) 1 tab DAILY PO Last administered on 09/04/21 10:19; Start 09/02/21 at 09:00 Cyanocobalamin (Vitamin B-12) 2,500 mcg DAILY PO Last administered on 09/04/21 10:20; Start 09/02/21 at 09:00 Multivitamins (Thera M Plus) 1 tab DAILY PO Last administered on 09/04/21 10:19; Start 09/02/21 at 09:00 Pantoprazole Sodium (Protonix) 40 mg DAILYAC PO Last administered on 09/04/21at 08:11; Start 09/02/21 at 07:30 Ondansetron HCl (Zofran) 4 mg PRN Q6HRS PRN IVP NAUSEA/VOMITING; Start 09/01/21 at 17:30 Calcium Carbonate/ Glycine (Tums) 500 mg PRN Q3HRS PRN PO UPSET STOMACH; Start 09/01/21 at 17:30 Info (Non-Icu Electrolyte Protocol) 1 ea PRN DAILY PRN MC SEE COMMENTS; Start 09/01/21 at 17:30 Acetaminophen/ Hydrocodone Bitart (Lortab 5/325) 1 tab PRN Q4HRS PRN PO MILD PAIN 1-3 Last administered on 09/03/21at 09:41; Start 09/01/21 at 17:30 Acetaminophen/ Hydrocodone Bitart (Lortab 5/325) 2 tab PRN Q4HRS PRN PO MODERATE PAIN, SEVERE PAIN Last administered on 09/04/21at 08:12; Start 09/01/21 at 17:30 Acetaminophen (Tylenol) 650 mg PRN Q6HRS PRN PO Headaches, Temp > 101.5F Last administered on 09/02/21at 00:59; Start 09/01/21 at 17:30 Senna/Docusate Sodium (Senna Plus) 1 tab BID PO Last administered on 09/04/21at 10:20; Start 09/01/21 at 21:00 Heparin Sodium (Porcine) (Heparin Sodium) 5,000 unit Q12HR SQ Last administered on 09/04/21at 10:35; Start 09/01/21 at 18:00 Ceftriaxone Sodium (Rocephin) 1 gm Q24H IVP Last administered on 09/03/21at 17:50; Start 09/01/21 at 18:00 Triamcinolone Acetonide (Kenalog-40) 40 mg 1X ONCE INT ART Last administered on 09/04/21at 13:47; Start 09/02/21 at 09:30; Stop 09/02/21 at 09:31; Status DC Triamcinolone Acetonide (Kenalog-40) 40 mg 1X ONCE INT ART Last administered on 09/04/21at 13:47; Start 09/02/21 at 09:30; Stop 09/02/21 at 09:31; Status DC Bupivacaine HCl (Sensorcaine-Mpf 0.25%) 10 ml 1X ONCE IJ Last administered on 09/04/21at 13:48; Start 09/02/21 at 09:30; Stop 09/02/21 at 09:31; Status DC Sodium Phosphate 20 mmol/Sodium Chloride 256.6667 ml @ 64.167 m... 1X ONCE IV Last administered on 09/02/21at 15:36; Start 09/02/21 at 16:00; Stop 09/02/21 at 19:59; Status DC Sodium Chloride 1,000 ml @ 75 mls/hr [id number] IV Last administered on 09/04/21at 06:15; Start 09/02/21 at 14:45 Lactobacillus Rhamnosus (Culturelle) 1 cap BID PO Last administered on 09/04/21at 10:19; Start 09/02/21 at 21:00 Lidocaine (Lidoderm) 1 patch DAILY TD Last administered on 09/04/21at 10:22; Start 09/03/21 at 09:00 Miscellaneous (Lidoderm Patch Removal) 1 ea QHS MC ; Start 09/03/21 at 21:00 Sodium Phosphate 20 mmol/Sodium Chloride 256.6667 ml @ 64.167 m... 1X ONCE IV Last administered on 09/04/21at 10:58; Start 09/04/21 at 11:00; Stop 09/04/21 at 14:59; Status DC Diclofenac Sodium (Voltaren) 1 quinton BID TP Last administered on 09/04/21at 13:56; Start 09/04/21 at 13:30 Active Scripts Active Prednisone (Prednisone) 10 Mg Tablet 10 Mg PO UD 20 Days 2 tabs PO daily for 10 days Then 1 tablet by mouth daily for 10 days. Then ask for labs for CRP and sed rate Atorvastatin Calcium 20 Mg Tablet 20 Mg PO QHS 30 Days Reported Hydrocodone-Acetamin 5-325 mg (Hydrocodone/Acetaminophen) 1 Each Tablet 5 Mg DAILY Acetaminophen 500 Mg Tablet 1,000 Mg PO PRN Q6HRS PRN Prolia (Denosumab) 60 Mg/1 Ml Disp.syrin 60 Mg SQ EVERY 6 MONTHS Colestipol Hcl 1 Gm Tablet 1 Gm PO DAILY Vitamin B12 (Cyanocobalamin (Vitamin B-12)) 2,500 Mcg Tablet 1 Tab PO DAILY 30 Days Omeprazole 20 Mg Capsule.dr Raymundo Cap PO DAILY Gabapentin (Gabapentin) 300 Mg Capsule 300 Mg PO TID Aspirin 81 Mg Tab.chew 1 Tab PO DAILY Calcium 600 + D Tablet (Calcium Carbonate/Vitamin D3) 1 Each Tablet 1 Each PO DAILY Multi Vitamin Daily (Multivitamin) 1 Each Tablet 1 Each PO DAILY Lisinopril 10 Mg Tablet 10 Mg PO DAILY Vitals/I & O Vital Sign - Last 24 Hours 09/03/21 09/03/21 09/03/21 09/03/21 19:00 20:05 22:19 22:49 Temp 98.5 98.5 Pulse 97 Resp 20 B/P (MAP) 177/87 (117) Pulse Ox 94 94 95 O2 Delivery Room Air Room Air Room Air Room Air 09/03/21 09/04/21 09/04/21 09/04/21 23:04 03:13 07:00 08:16 Temp 97.6 97.8 97.7 97.6 97.8 97.7 Pulse 103 91 101 Resp 20 18 18 B/P (MAP) 93/84 (87) 162/77 (105) 193/85 (121) Pulse Ox 95 95 94 O2 Delivery Room Air Room Air Room Air 09/04/21 09/04/21 09/04/21 09:00 10:20 11:00 Temp 98.1 98.1 Pulse 97 97 87 Resp 18 B/P (MAP) 152/74 (100) 152/74 146/76 (99) Pulse Ox 95 Intake and Output 09/03/21 09/03/21 09/04/21 15:00 23:00 07:00 Intake Total 975 ml Output Total 300 ml Balance 975 ml -300 ml Justifications for Admission Other Justification Generalized weakness and lower extremity cellulitis STACIE ANGUIANO MD Sep 04, 2021 15:12
--- NOTE | 2021-09-04 16:09 | NUR ---
SS following up with discharge planning. SS reviewed pt chart and discussed with pt RN. Pt is currently on room air. COVID19 negative. PT/OT recommended shelter unit. [facility] accepted [facility], ; fax [phone]. SS will continue to follow for discharge planning .
[2021-09-04] MEDS: PATCH REMOVAL. MC SCH (21:00)
[2021-09-04] MEDS: ATORVASTATIN CALCIUM 20 MG TABLET PO SCH (22:22)
[2021-09-05 03:47] VITALS: BP 155/82
[2021-09-05 06:07] LABS: CALCIUM 8.1 mg/dL (8.5-10.1); CREATININE 0.6 mg/dL (0.6-1.0); POTASSIUM 3.6 mmol/L (3.5-5.1)
[2021-09-05 06:09] LABS: BASO % 0 % (0-3); EOS % 0 % (0-3); HEMATOCRIT 25.2 % (36.0-47.0); LYMPH # 0.3 x10^3/uL (1.0-4.8); LYMPH % 5 % (24-48); MEAN CORPUSCULAR HEMOGLOBIN 35 pg (25-35); MEAN CORPUSCULAR HGB CONC 36 g/dL (31-37); MEAN CORPUSCULAR VOLUME 99 fL (79-100); MONO # 0.2 x10^3/uL (0.0-1.1); MONO % 4 % (0-9); NEUT # 4.5 x10^3/uL (1.8-7.7); NEUT % 91 % (31-73); PLATELET COUNT 343 x10^3/uL (140-400); RED BLOOD COUNT 2.54 x10^6/uL (3.50-5.40); RED CELL DISTRIBUTION WIDTH 13.9 % (11.5-14.5); WHITE BLOOD COUNT 4.9 x10^3/uL (4.0-11.0)
[2021-09-05] MEDS: HYDROcodone/APAP 5/325MG 1 TAB TABLET PO PRN ×2 (06:16→11:55)
[2021-09-05 07:00] VITALS: BP 167/92
[2021-09-05] MEDS: CALCIUM CARB/VIT D3 500/200 TABLET. PO SCH (08:32)
[2021-09-05] MEDS: LACTOBACILLUS RHAMNOSUS GG 1 CAPSULE. PO SCH (08:32)
[2021-09-05] MEDS: predniSONE 10 MG TABLET PO SCH (08:32)
[2021-09-05] MEDS: MULTIVITAMIN with MINERAL TABLET. PO SCH (08:32)
[2021-09-05] MEDS: ASPIRIN CHEWABLE 81 MG TABLET. PO SCH (08:32)
[2021-09-05] MEDS: CYANOCOBALAMIN (VITAMIN B-12) 1,000 MCG TABLET. PO SCH (08:32)
[2021-09-05] MEDS: PANTOPRAZOLE 40 MG TABLET.DR. PO SCH (08:32)
[2021-09-05] MEDS: GABAPENTIN 300 MG CAPSULE. PO SCH ×2 (08:32→13:27)
[2021-09-05] MEDS: SENNOSIDES/DOCUSATE 8.6/50MG TABLET. PO SCH (08:32)
[2021-09-05] MEDS: DICLOFENAC SODIUM 1% TOPICAL GEL 100GM TUBE. TP SCH (08:32)
[2021-09-05] MEDS: LISINOPRIL 10 MG TABLET PO SCH (08:33)
[2021-09-05] MEDS: LIDOCAINE (700MG/PATCH) PATCH. TD SCH (08:33)
[2021-09-05] MEDS: HEPARIN for SUB-Q USE 5,000 UNIT/ML VIAL. SQ SCH (08:34)
--- NOTE | 2021-09-05 09:24 | PDOC ---
DATE OF SERVICE DATE: 09/05/21 TIME: 09:21 SUBJECTIVE ROS No N/V. No SOB Good appetite OBJECTIVE Vital Signs Vital Signs Date Time Temp Pulse Resp B/P (MAP) Pulse Ox O2 Delivery O2 Flow Rate FiO2 09/05/21 08:33 77 167/92 09/05/21 07:15 Room Air 09/05/21 07:00 98.0 18 94 98.0 I & 0 Intake and Output 09/05/21 07:00 Intake Total 986.6667 ml Balance 986.6667 ml Intake Oral 730 ml IV Total 256.6667 ml # Voids 7 PHYSICAL EXAM Physical Exam GEN NAD, lying flat HEEN OM mildly dry, An icteric Neck Supple Lungs CTA, Non labored CV S1S2 Abd Soft, NT Ext No LE edeam, No cyanosis No Purvis, No CAV or SP tenderness sKIN No RAsh DIAGNOSIS/ASSESSMENT Assessment & Plan HypoNatremia --Has Mild Chronic HypoNa 127-132 with Na of 120 in 2018 . TSH normal . Improving slowly . DC IV NS, encourage PO increased salt intake. Restrict free water/fluids to 3600-9874 mls/24 hrs . Explained at great length to daughter and patient Serum osm cw SIADH , Ur Osm not reported, Ur Na > 20 , Cortisol Normal . Will Add Demeclocycline 150 mg PO BID. Monitor labs next week with PCP . Dw Daughter and Nursing Chronic back pain- No acute changes on spinal imaging. consulted Hyperkalemia POA - Mild, resolved HypoPhos- Replace IV - Ordered 20 mmol Renal Cyst- reported Ct scan 2018(Renal not consulted) Multiple small hyperdense lesions in the kidneys bilaterally with the largest at the lower pole the left kidney measuring 1.8 cm in size. These may represent hemorrhagic cysts. Differential would include angiomyolipoma renal cell carcinoma. Patient reports she was transferred to [facility] due to Ct findings, was seen by urology at [facility]- with Cyst with no further swan recommended History CHF - Compensated currently Hypertension BP high , continue meds COMMENT/RELEVANT DATA Meds Current Medications Medications (Trade) Dose Ordered Sig/Mason Start Time Stop Time Status Last Admin Dose Admin Acetaminophen (Tylenol) 650 mg PRN Q6HRS PRN 09/01/21 17:30 09/02/21 00:59 650 MG Acetaminophen/ Hydrocodone Bitart (Lortab 5/325) 2 tab PRN Q4HRS PRN 09/01/21 17:30 09/05/21 06:16 2 TAB Aspirin (Aspirin Chewable) 81 mg DAILY 09/02/21 09:00 09/05/21 08:32 81 MG Atorvastatin Calcium (Lipitor) 20 mg QHS 09/01/21 21:00 09/04/21 22:22 20 MG Bupivacaine HCl (Sensorcaine-Mpf 0.25%) 10 ml 1X ONCE 09/02/21 09:30 09/02/21 09:31 DC 09/04/21 13:48 4 ML Calcium Carbonate/ Glycine (Tums) 500 mg PRN Q3HRS PRN 09/01/21 17:30 Calcium/Vitamin D (Oscal D 500mg/ 200uts) 1 tab DAILY 09/02/21 09:00 09/05/21 08:32 1 TAB Ceftriaxone Sodium (Rocephin) 1 gm Q24H 09/01/21 18:00 09/04/21 16:47 DC 09/03/21 17:50 1 GM Colestipol HCl (Colestid) 1 gm DAILY@1000 09/02/21 10:00 09/04/21 10:19 1 GM Cyanocobalamin (Vitamin B-12) 2,500 mcg DAILY 09/02/21 09:00 09/05/21 08:32 2,500 MCG Diclofenac Sodium (Voltaren) 1 quinton BID 09/04/21 13:30 09/05/21 08:32 1 QUINTON Gabapentin (Neurontin) 300 mg TID 09/01/21 21:00 09/05/21 08:32 300 MG Heparin Sodium (Porcine) (Heparin Sodium) 5,000 unit Q12HR 09/01/21 18:00 09/05/21 08:34 5,000 UNIT Info (Non-Icu Electrolyte Protocol) 1 ea PRN DAILY PRN 09/01/21 17:30 Lactobacillus Rhamnosus (Culturelle) 1 cap BID 09/02/21 21:00 09/05/21 08:32 1 CAP Lidocaine (Lidoderm) 1 patch DAILY 09/03/21 09:00 09/05/21 08:33 1 PATCH Lisinopril (Prinivil) 10 mg DAILY 09/02/21 09:00 09/05/21 08:33 10 MG Miscellaneous (Lidoderm Patch Removal) 1 ea QHS 09/03/21 21:00 09/04/21 21:00 1 EA Multivitamins (Thera M Plus) 1 tab DAILY 09/02/21 09:00 09/05/21 08:32 1 TAB Ondansetron HCl (Zofran) 4 mg PRN Q6HRS PRN 09/01/21 17:30 Pantoprazole Sodium (Protonix) 40 mg DAILYAC 09/02/21 07:30 09/05/21 08:32 40 MG Prednisone (Prednisone) 10 mg DAILY 09/02/21 09:00 09/05/21 08:32 10 MG Senna/Docusate Sodium (Senna Plus) 1 tab BID 09/01/21 21:00 09/05/21 08:32 1 TAB Sodium Chloride 1,000 ml @ 75 mls/hr [id number] 09/02/21 14:45 09/04/21 22:33 75 MLS/HR Sodium Phosphate 20 mmol/Sodium Chloride 256.6667 ml @ 64.167 m... 1X ONCE 09/04/21 11:00 09/04/21 14:59 DC 09/04/21 10:58 64.167 MLS/HR Triamcinolone Acetonide (Kenalog-40) 40 mg 1X ONCE 09/02/21 09:30 09/02/21 09:31 DC 09/04/21 13:47 40 MG Lab Laboratory Tests Test 09/05/21 04:45 White Blood Count 4.9 x10^3/uL (4.0-11.0) Red Blood Count 2.54 x10^6/uL (3.50-5.40) Hemoglobin 9.0 g/dL (12.0-15.5) Hematocrit 25.2 % (36.0-47.0) Mean Corpuscular Volume 99 fL (79-100) Mean Corpuscular Hemoglobin 35 pg (25-35) Mean Corpuscular Hemoglobin Concent 36 g/dL (31-37) Red Cell Distribution Width 13.9 % (11.5-14.5) Platelet Count 343 x10^3/uL (140-400) Neutrophils (%) (Auto) 91 % (31-73) Lymphocytes (%) (Auto) 5 % (24-48) Monocytes (%) (Auto) 4 % (0-9) Eosinophils (%) (Auto) 0 % (0-3) Basophils (%) (Auto) 0 % (0-3) Neutrophils # (Auto) 4.5 x10^3/uL (1.8-7.7) Lymphocytes # (Auto) 0.3 x10^3/uL (1.0-4.8) Monocytes # (Auto) 0.2 x10^3/uL (0.0-1.1) Eosinophils # (Auto) 0.0 x10^3/uL (0.0-0.7) Basophils # (Auto) 0.0 x10^3/uL (0.0-0.2) Sodium Level 127 mmol/L (136-145) Potassium Level 3.6 mmol/L (3.5-5.1) Chloride Level 96 mmol/L (98-107) Carbon Dioxide Level 22 mmol/L (21-32) Anion Gap 9 (6-14) Blood Urea Nitrogen 7 mg/dL (7-20) Creatinine 0.6 mg/dL (0.6-1.0) Estimated GFR (Cockcroft-Gault) 95.0 Glucose Level 134 mg/dL (70-99) Calcium Level 8.1 mg/dL (8.5-10.1) Phosphorus Level 2.0 mg/dL (2.6-4.7) Results All relevant outside records, renal labs, imaging studies, telemetry/EKG's were reviewed. Justicifation of Admission Dx: Justifications for Admission: Justification of Admission Dx: Yes Chronic Renal Failure: Electrolyte Abnormality Cellulitis: Cellulitis RE RUDOLPH MD Sep 05, 2021 09:24
[2021-09-05] MEDS: IV NORMAL SALINE 1000ML BAG 1,000 ML IV SCH (09:25)
--- NOTE | 2021-09-05 09:47 | PDOC ---
PROGRESS NOTES Date of Service DATE: 09/05/21 TIME: 09:44 Subjective Subjective She feels better. Objective Objective Vital Signs Date Time Temp Pulse Resp B/P (MAP) Pulse Ox O2 Delivery O2 Flow Rate FiO2 09/05/21 08:33 77 167/92 09/05/21 07:15 Room Air 09/05/21 07:00 98.0 18 94 98.0 Intake and Output 09/05/21 07:00 Intake Total 986.6667 ml Balance 986.6667 ml Intake Oral 730 ml IV Total 256.6667 ml # Voids 7 Physical Exam Physical Exam She is alert,supine in bed and she got up and walked per 20' with roller walker with physical therapy yesterday. She continues with hyponatraemia nad she is anemic. Assessment Assessment Problems Medical Problems: (1) Body aches Status: Acute (2) Hyperkalemia Status: Acute Plan Plan of Care Agree with plans for SNF transfer when medically stable. Comment Review of Relevant I have reviewed the following items pete (where applicable) has been applied. Labs Laboratory Tests Test 09/03/21 22:30 09/04/21 07:41 09/05/21 04:45 Coronavirus (COVID-19)(PCR) Not detected (NOT DETECTD) White Blood Count 8.0 x10^3/uL (4.0-11.0) 4.9 x10^3/uL (4.0-11.0) Red Blood Count 2.77 x10^6/uL (3.50-5.40) 2.54 x10^6/uL (3.50-5.40) Hemoglobin 9.7 g/dL (12.0-15.5) 9.0 g/dL (12.0-15.5) Hematocrit 27.5 % (36.0-47.0) 25.2 % (36.0-47.0) Mean Corpuscular Volume 99 fL (79-100) 99 fL (79-100) Mean Corpuscular Hemoglobin 35 pg (25-35) 35 pg (25-35) Mean Corpuscular Hemoglobin Concent 35 g/dL (31-37) 36 g/dL (31-37) Red Cell Distribution Width 14.0 % (11.5-14.5) 13.9 % (11.5-14.5) Platelet Count 433 x10^3/uL (140-400) 343 x10^3/uL (140-400) Neutrophils (%) (Auto) 84 % (31-73) 91 % (31-73) Lymphocytes (%) (Auto) 8 % (24-48) 5 % (24-48) Monocytes (%) (Auto) 8 % (0-9) 4 % (0-9) Eosinophils (%) (Auto) 0 % (0-3) 0 % (0-3) Basophils (%) (Auto) 0 % (0-3) 0 % (0-3) Neutrophils # (Auto) 6.7 x10^3/uL (1.8-7.7) 4.5 x10^3/uL (1.8-7.7) Lymphocytes # (Auto) 0.6 x10^3/uL (1.0-4.8) 0.3 x10^3/uL (1.0-4.8) Monocytes # (Auto) 0.6 x10^3/uL (0.0-1.1) 0.2 x10^3/uL (0.0-1.1) Eosinophils # (Auto) 0.0 x10^3/uL (0.0-0.7) 0.0 x10^3/uL (0.0-0.7) Basophils # (Auto) 0.0 x10^3/uL (0.0-0.2) 0.0 x10^3/uL (0.0-0.2) Sodium Level 132 mmol/L (136-145) 127 mmol/L (136-145) Potassium Level 3.5 mmol/L (3.5-5.1) 3.6 mmol/L (3.5-5.1) Chloride Level 99 mmol/L (98-107) 96 mmol/L (98-107) Carbon Dioxide Level 23 mmol/L (21-32) 22 mmol/L (21-32) Anion Gap 10 (6-14) 9 (6-14) Blood Urea Nitrogen 5 mg/dL (7-20) 7 mg/dL (7-20) Creatinine 0.5 mg/dL (0.6-1.0) 0.6 mg/dL (0.6-1.0) Estimated GFR (Cockcroft-Gault) 117.3 95.0 Glucose Level 99 mg/dL (70-99) 134 mg/dL (70-99) Calcium Level 7.8 mg/dL (8.5-10.1) 8.1 mg/dL (8.5-10.1) Phosphorus Level 2.0 mg/dL (2.6-4.7) 2.0 mg/dL (2.6-4.7) Laboratory Tests Test 09/05/21 04:45 White Blood Count 4.9 x10^3/uL (4.0-11.0) Red Blood Count 2.54 x10^6/uL (3.50-5.40) Hemoglobin 9.0 g/dL (12.0-15.5) Hematocrit 25.2 % (36.0-47.0) Mean Corpuscular Volume 99 fL (79-100) Mean Corpuscular Hemoglobin 35 pg (25-35) Mean Corpuscular Hemoglobin Concent 36 g/dL (31-37) Red Cell Distribution Width 13.9 % (11.5-14.5) Platelet Count 343 x10^3/uL (140-400) Neutrophils (%) (Auto) 91 % (31-73) Lymphocytes (%) (Auto) 5 % (24-48) Monocytes (%) (Auto) 4 % (0-9) Eosinophils (%) (Auto) 0 % (0-3) Basophils (%) (Auto) 0 % (0-3) Neutrophils # (Auto) 4.5 x10^3/uL (1.8-7.7) Lymphocytes # (Auto) 0.3 x10^3/uL (1.0-4.8) Monocytes # (Auto) 0.2 x10^3/uL (0.0-1.1) Eosinophils # (Auto) 0.0 x10^3/uL (0.0-0.7) Basophils # (Auto) 0.0 x10^3/uL (0.0-0.2) Sodium Level 127 mmol/L (136-145) Potassium Level 3.6 mmol/L (3.5-5.1) Chloride Level 96 mmol/L (98-107) Carbon Dioxide Level 22 mmol/L (21-32) Anion Gap 9 (6-14) Blood Urea Nitrogen 7 mg/dL (7-20) Creatinine 0.6 mg/dL (0.6-1.0) Estimated GFR (Cockcroft-Gault) 95.0 Glucose Level 134 mg/dL (70-99) Calcium Level 8.1 mg/dL (8.5-10.1) Phosphorus Level 2.0 mg/dL (2.6-4.7) Microbiology 09/01/21 Urine Culture - Final, Complete Medications Current Medications Sodium Chloride 1,000 ml @ 1,000 mls/hr 1X ONCE IV Last administered on 09/01/21at 15:40; Start 09/01/21 at 15:30; Stop 09/01/21 at 16:29; Status DC Sodium Chloride 1,000 ml @ 1,000 mls/hr 1X ONCE IV Last administered on 09/01/21at 17:15; Start 09/01/21 at 17:15; Stop 09/01/21 at 18:14; Status DC Aspirin (Aspirin Chewable) 81 mg DAILY PO Last administered on 09/05/21 08:32; Start 09/02/21 at 09:00 Atorvastatin Calcium (Lipitor) 20 mg QHS PO Last administered on 09/04/21 22:22; Start 09/01/21 at 21:00 Colestipol HCl (Colestid) 1 gm DAILY@1000 PO Last administered on 09/04/21 10:19; Start 09/02/21 at 10:00 Gabapentin (Neurontin) 300 mg TID PO Last administered on 09/05/21 08:32; Start 09/01/21 at 21:00 Lisinopril (Prinivil) 10 mg DAILY PO Last administered on 09/05/21 08:33; Start 09/02/21 at 09:00 Prednisone (Prednisone) 10 mg DAILY PO Last administered on 09/05/21 08:32; Start 09/02/21 at 09:00 Calcium/Vitamin D (Oscal D 500mg/ 200uts) 1 tab DAILY PO Last administered on 09/05/21 08:32; Start 09/02/21 at 09:00 Cyanocobalamin (Vitamin B-12) 2,500 mcg DAILY PO Last administered on 09/05/21 08:32; Start 09/02/21 at 09:00 Multivitamins (Thera M Plus) 1 tab DAILY PO Last administered on 09/05/21at 08:32; Start 09/02/21 at 09:00 Pantoprazole Sodium (Protonix) 40 mg DAILYAC PO Last administered on 09/05/21at 08:32; Start 09/02/21 at 07:30 Ondansetron HCl (Zofran) 4 mg PRN Q6HRS PRN IVP NAUSEA/VOMITING; Start 09/01/21 at 17:30 Calcium Carbonate/ Glycine (Tums) 500 mg PRN Q3HRS PRN PO UPSET STOMACH; Start 09/01/21 at 17:30 Info (Non-Icu Electrolyte Protocol) 1 ea PRN DAILY PRN MC SEE COMMENTS; Start 09/01/21 at 17:30 Acetaminophen/ Hydrocodone Bitart (Lortab 5/325) 1 tab PRN Q4HRS PRN PO MILD PAIN 1-3 Last administered on 09/03/21at 09:41; Start 09/01/21 at 17:30 Acetaminophen/ Hydrocodone Bitart (Lortab 5/325) 2 tab PRN Q4HRS PRN PO MODERATE PAIN, SEVERE PAIN Last administered on 09/05/21at 06:16; Start 09/01/21 at 17:30 Acetaminophen (Tylenol) 650 mg PRN Q6HRS PRN PO Headaches, Temp > 101.5F Last administered on 09/02/21at 00:59; Start 09/01/21 at 17:30 Senna/Docusate Sodium (Senna Plus) 1 tab BID PO Last administered on 09/05/21at 08:32; Start 09/01/21 at 21:00 Heparin Sodium (Porcine) (Heparin Sodium) 5,000 unit Q12HR SQ Last administered on 09/05/21 08:34; Start 09/01/21 at 18:00 Ceftriaxone Sodium (Rocephin) 1 gm Q24H IVP Last administered on 09/03/21at 17:50; Start 09/01/21 at 18:00; Stop 09/04/21 at 16:47; Status DC Triamcinolone Acetonide (Kenalog-40) 40 mg 1X ONCE INT ART Last administered on 09/04/21at 13:47; Start 09/02/21 at 09:30; Stop 09/02/21 at 09:31; Status DC Triamcinolone Acetonide (Kenalog-40) 40 mg 1X ONCE INT ART Last administered on 09/04/21at 13:47; Start 09/02/21 at 09:30; Stop 09/02/21 at 09:31; Status DC Bupivacaine HCl (Sensorcaine-Mpf 0.25%) 10 ml 1X ONCE IJ Last administered on 09/04/21at 13:48; Start 09/02/21 at 09:30; Stop 09/02/21 at 09:31; Status DC Sodium Phosphate 20 mmol/Sodium Chloride 256.6667 ml @ 64.167 m... 1X ONCE IV Last administered on 09/02/21at 15:36; Start 09/02/21 at 16:00; Stop 09/02/21 at 19:59; Status DC Sodium Chloride 1,000 ml @ 75 mls/hr [id number] IV Last administered on 09/04/21at 22:33; Start 09/02/21 at 14:45 Lactobacillus Rhamnosus (Culturelle) 1 cap BID PO Last administered on 09/05/21at 08:32; Start 09/02/21 at 21:00 Lidocaine (Lidoderm) 1 patch DAILY TD Last administered on 09/05/21at 08:33; Start 09/03/21 at 09:00 Miscellaneous (Lidoderm Patch Removal) 1 ea QHS MC Last administered on 09/04/21at 21:00; Start 09/03/21 at 21:00 Sodium Phosphate 20 mmol/Sodium Chloride 256.6667 ml @ 64.167 m... 1X ONCE IV Last administered on 09/04/21at 10:58; Start 09/04/21 at 11:00; Stop 09/04/21 at 14:59; Status DC Diclofenac Sodium (Voltaren) 1 quinton BID TP Last administered on 09/05/21at 08:32; Start 09/04/21 at 13:30 Sodium Phosphate 20 mmol/Sodium Chloride 256.6667 ml @ 64.167 m... 1X ONCE IV ; Start 09/05/21 at 11:00; Stop 09/05/21 at 14:59 Active Scripts Active Prednisone (Prednisone) 10 Mg Tablet 10 Mg PO UD 20 Days 2 tabs PO daily for 10 days Then 1 tablet by mouth daily for 10 days. Then ask for labs for CRP and sed rate Atorvastatin Calcium 20 Mg Tablet 20 Mg PO QHS 30 Days Reported Hydrocodone-Acetamin 5-325 mg (Hydrocodone/Acetaminophen) 1 Each Tablet 5 Mg DAILY Acetaminophen 500 Mg Tablet 1,000 Mg PO PRN Q6HRS PRN Prolia (Denosumab) 60 Mg/1 Ml Disp.syrin 60 Mg SQ EVERY 6 MONTHS Colestipol Hcl 1 Gm Tablet 1 Gm PO DAILY Vitamin B12 (Cyanocobalamin (Vitamin B-12)) 2,500 Mcg Tablet 1 Tab PO DAILY 30 Days Omeprazole 20 Mg Capsule. 1 Cap PO DAILY Gabapentin (Gabapentin) 300 Mg Capsule 300 Mg PO TID Aspirin 81 Mg Tab.chew 1 Tab PO DAILY Calcium 600 + D Tablet (Calcium Carbonate/Vitamin D3) 1 Each Tablet 1 Each PO DAILY Multi Vitamin Daily (Multivitamin) 1 Each Tablet 1 Each PO DAILY Lisinopril 10 Mg Tablet 10 Mg PO DAILY Vitals/I & O Vital Sign - Last 24 Hours 09/04/21 09/04/21 09/04/21 09/04/21 10:20 11:00 15:00 19:00 Temp 98.1 98.2 98.3 98.1 98.2 98.3 Pulse 97 87 94 104 Resp 18 18 18 B/P (MAP) 152/74 146/76 (99) 154/75 (101) 158/90 (112) Pulse Ox 95 95 94 O2 Delivery Room Air 09/04/21 09/05/21 09/05/21 09/05/21 23:53 03:47 07:00 07:15 Temp 97.6 98.2 98.0 97.6 98.2 98.0 Pulse 96 91 77 Resp 16 16 18 B/P (MAP) 178/92 (120) 155/82 (106) 167/92 (117) Pulse Ox 95 95 94 O2 Delivery Room Air Room Air Room Air Room Air 09/05/21 08:33 Pulse 77 B/P (MAP) 167/92 Intake and Output 09/04/21 09/04/21 09/05/21 15:00 23:00 07:00 Intake Total 496.6667 ml 240 ml 250 ml Balance 496.6667 ml 240 ml 250 ml Justifications for Admission Other Justification Generalized weakness and lower extremity cellulitis STACIE ANGUIANO MD Sep 05, 2021 09:47
[2021-09-05 09:57] LABS: % LYMPHS 3 % (24-48); % MONOS 4 % (0-10); % SEGS 93 % (35-66); PLT ESTIMATE ADEQUATE (ADEQUATE)
[2021-09-05] MEDS: COLESTIPOL HCL 1 GM TABLET PO SCH (10:08)
[2021-09-05 10:53] VITALS: BP 133/72
[2021-09-05] MEDS ORDERED: SODIUM PHOSPHATE 20 MMOL in IV NORMAL SALINE 250ML 250 ML IV ONE (11:00)
--- NOTE | 2021-09-05 12:23 | PDOC ---
[employer] PROGRESS NOTE Date of Service DOS: DATE: 09/05/21 TIME: 12:22 Chief Complaint Chief Complaint Chronic back pain. Hyponatremia hyperkalemia normal creatinine. History CHF GERD hypertension UTI. History of Present Illness History of Present Illness 09/05/2021 No acute events overnight. Patient seen examined bedside. Although clinically patient appears improved, her sodium dropped back down to 127 and phosphate at 2.0. Nephrology has ordered total of 40 mmol of IV sodium phosphate. I have also encouraged patient for increased sodium in her diet. Plan for discharge after infusion. Patient's chart, labs, images were reviewed and discussed with RN 09/04/2021 No acute events overnight. Patient seen examined bedside. Daughters are with her. Pain is improved. Sodium improved to 132. Nephrology following. We will continue IV NS. Instructed to increase salt in diet. At least 2 g/day. Voltaren gel ordered for extremity pain. Plan for SNF at [place]. PCR pending for COVID. 09/03/2021 Patient seen and examined Discussed with her daughter Reviewed the chart with her daughter Discussed with RN Discussed with case management Occupational Therapy feels the patient needs to go to [facility] in a day or so This morning the patient did eat 50% of her breakfast Currently has IV normal saline hanging at 75 cc an hour 09/02/2021 Patient seen On commode currently Discussed with RN Discussed with case management Chart reviewed Vitals/I&O Vitals/I&O: Vital Signs Date Time Temp Pulse Resp B/P (MAP) Pulse Ox O2 Delivery O2 Flow Rate FiO2 09/05/21 11:55 Room Air 09/05/21 10:53 98.0 94 18 133/72 (92) 96 98.0 I & O 09/04/21 09/04/21 09/05/21 15:00 23:00 07:00 Intake Total 496.6667 ml 240 ml 250 ml Balance 496.6667 ml 240 ml 250 ml Physical Exam General: Alert, Oriented X3, Cooperative, mild distress Lungs: Clear Extremities: Other (She had tenderness to palaption over medial and lateral knee joint line and over both hands and over posterior shoulder girdle muscles b ilaterally.) Labs Labs: Laboratory Tests Test 09/05/21 04:45 White Blood Count 4.9 x10^3/uL (4.0-11.0) Red Blood Count 2.54 x10^6/uL (3.50-5.40) Hemoglobin 9.0 g/dL (12.0-15.5) Hematocrit 25.2 % (36.0-47.0) Mean Corpuscular Volume 99 fL (79-100) Mean Corpuscular Hemoglobin 35 pg (25-35) Mean Corpuscular Hemoglobin Concent 36 g/dL (31-37) Red Cell Distribution Width 13.9 % (11.5-14.5) Platelet Count 343 x10^3/uL (140-400) Neutrophils (%) (Auto) 91 % (31-73) Lymphocytes (%) (Auto) 5 % (24-48) Monocytes (%) (Auto) 4 % (0-9) Eosinophils (%) (Auto) 0 % (0-3) Basophils (%) (Auto) 0 % (0-3) Neutrophils # (Auto) 4.5 x10^3/uL (1.8-7.7) Lymphocytes # (Auto) 0.3 x10^3/uL (1.0-4.8) Monocytes # (Auto) 0.2 x10^3/uL (0.0-1.1) Eosinophils # (Auto) 0.0 x10^3/uL (0.0-0.7) Basophils # (Auto) 0.0 x10^3/uL (0.0-0.2) Segmented Neutrophils % 93 % (35-66) Lymphocytes % 3 % (24-48) Monocytes % 4 % (0-10) Platelet Estimate Adequate (ADEQUATE) Sodium Level 127 mmol/L (136-145) Potassium Level 3.6 mmol/L (3.5-5.1) Chloride Level 96 mmol/L (98-107) Carbon Dioxide Level 22 mmol/L (21-32) Anion Gap 9 (6-14) Blood Urea Nitrogen 7 mg/dL (7-20) Creatinine 0.6 mg/dL (0.6-1.0) Estimated GFR (Cockcroft-Gault) 95.0 Glucose Level 134 mg/dL (70-99) Calcium Level 8.1 mg/dL (8.5-10.1) Phosphorus Level 2.0 mg/dL (2.6-4.7) Assessment and Plan Assessmemt and Plan Problems Medical Problems: (1) Body aches Status: Acute (2) Hyperkalemia Status: Acute Comment Review of Relevant I have reviewed the following items pete (where applicable) has been applied. Medications: Current Medications Medications (Trade) Dose Ordered Sig/Mason Route PRN Reason Start Time Stop Time Status Last Admin Dose Admin Diclofenac Sodium (Voltaren) 1 quinton BID TP 09/04/21 13:30 09/05/21 08:32 Sodium Phosphate 20 mmol/Sodium Chloride 256.6667 ml @ 64.167 m... 1X ONCE IV 09/05/21 11:00 09/05/21 14:59 09/05/21 10:09 Justifications for Admission Other Justification Generalized weakness and lower extremity cellulitis KALI SWANSON MD Sep 05, 2021 12:23
[2021-09-05] MEDS ORDERED: HYDR-2761 PO (12:40)
--- NOTE | 2021-09-05 12:42 | SNU/HH DC ---
DISCHARGE ORDERS DISCHARGE INFORMATION: DISCHARGE DATE: Sep 05, 2021 FINAL DIAGNOSIS Problems Medical Problems: (1) Body aches Status: Acute (2) Hyperkalemia Status: Acute CONDITION ON DISCHARGE: Stable CODE STATUS: Code Status: Full FPC: SNF STAY <30 DAYS: Yes POST DISCHARGE ORDERS: ACTIVITY ORDERS: Activity as tolerated WEIGHT BEARING STATUS: No restrictions DIET AFTER DISCHARGE: Regular (Please add 1-2 bags of potato chips for sodium supplement) CHECKS AFTER DISCHARGE: CHECKS AFTER DISCHARGE: Check blood press - daily, Check your Temp as needed, Weigh Yourself Daily FOLLOW-UP: PHYSICIAN FOLLOW-UP: PCP upon admission ADDITIONAL FOLLOW-UP: Sodium levels every 2 to 3 days LAB ORDERS FOR FOLLOW-UP: Sed rate, CRP every 2 weeks TREATMENT/EQUIPMENT ORDERS: ADAPTIVE EQUIPMENT NEEDED: Front wheeled walker Physical Therapy For: Evalulation/Treatment Occupational Therapy For: Evaluation/Treatment Speech Language Pathology For: Evaluation/Treatment DISCHARGE MEDICATIONS: Home Meds Active Scripts Hydrocodone Bit/Acetaminophen (HYDROCODONE-APAP 5-325 ) 1 Tab Tablet, 1 TAB PO PRN Q4HRS for Pain for 3 Days, #18 TAB Prov:KALI SWANSON MD 09/05/21 Prednisone (PREDNISONE ) 10 Mg Tablet, 10 MG PO UD for PREDNISONE TAPER for 20 Days, #30 TAB 0 Refills 2 tabs PO daily for 10 days Then 1 tablet by mouth daily for 10 days. Then ask for labs for CRP and sed rate Prov:MANDEEP ARROYO MD 08/19/21 Atorvastatin Calcium (ATORVASTATIN CALCIUM) 20 Mg Tablet, 20 MG PO QHS for CVA for 30 Days, #30 TAB Prov:IGNACIO NUÑEZ MD 06/15/19 Reported Medications Acetaminophen (ACETAMINOPHEN) 500 Mg Tablet, 1000 MG PO PRN Q6HRS PRN for PAIN, TAB 03/11/21 Denosumab (PROLIA) 60 Mg/1 Ml Disp.syrin, 60 MG SQ every 6 months for osteoporosis, DIS.SYR 11/02/19 Colestipol Hcl (COLESTIPOL HCL) 1 Gm Tablet, 1 GM PO DAILY for unk, TAB 10/19/19 Cyanocobalamin (Vitamin B-12) (Vitamin B12) 2,500 Mcg Tablet, 1 TAB PO DAILY for supp for 30 Days, #30 TAB 0 Refills 10/19/19 Omeprazole (OMEPRAZOLE) 20 Mg Capsule.dr, 1 CAP PO DAILY for gerd, #30 CAP 5 Refills 10/19/19 Gabapentin (GABAPENTIN ) 300 Mg Capsule, 300 MG PO TID for NEUROGENIC PAIN, CAP 03/30/19 Aspirin (ASPIRIN) 81 Mg Tab.chew, 1 TAB PO DAILY for heart, #30 TAB 3 Refills 02/09/15 Calcium Carbonate/Vitamin D3 (Calcium 600 + D Tablet) 1 Each Tablet, 1 EACH PO DAILY for supplement 02/09/15 Multivitamin (MULTI VITAMIN DAILY) 1 Each Tablet, 1 EACH PO DAILY for supplement 02/09/15 Lisinopril (LISINOPRIL) 10 Mg Tablet, 10 MG PO DAILY for htn, #30 TAB 0 Refills 02/09/15 Discontinued Reported Medications Hydrocodone/Acetaminophen (Hydrocodone-Acetamin 5-325 mg) 1 Each Tablet, 5 MG DAILY for pain 08/18/21 KALI SWANSON MD Sep 05, 2021 12:42
[2021-09-05] MEDS ORDERED: DEMECLOCYCLINE HCL 150 MG TABLET. PO SCH (13:30)
--- NOTE | 2021-09-05 14:10 | NUR ---
SS following up with discharge planning. SS reviewed pt chart and discussed with pt RN. Pt is currently on room air. COVID19 negative. PT/OT recommended correction unit. Pt accepted at [facility], ; fax [phone]. Discharge orders received and sent to [facility]. Pt will discharge today and go to [facility] at 1530. Transportation arranged by [facility]. Pt, pt's RN, and pt's family notified.
[2021-09-05 15:00] VITALS: BP 151/73
[2021-09-05] MEDS ORDERED: Diclofenac Sodium TP ×2 (15:27→15:33)
[2021-09-05] MEDS ORDERED: Demeclocycline Hcl PO ×2 (15:27→15:33)
[2021-09-05] MEDS ORDERED: FERR325T72 PO ×2 (15:27→15:33)
--- NOTE | 2021-09-05 16:30 | NUR ---
Discharge Note: PT DISCHARGED TO [facility]. PT LEFT FACILITY VIA [facility] AT 1625. PT STABLE AND ALERT UPON DISCHARGE. PT PIV REMOVED FROM L FA WITHOUT COMPLICATIONS, BANDAGE APPLIED. PT TELE MONITOR REMOVED. REPORT CALLED TO [facility] AT 1534. EDUCATED ABOUT DISCHARGE INSTRUCTIONS, DISCHARGE MEDICATIONS, AND FOLLOW-UP CARE INSTRUCTIONS, LAB ORDERS. NO CONCERNS VOICED AT THIS TIME. PT LEFT WITH ALL PERSONAL BELONGINGS. DAUGHTERS AT BEDSIDE UPON DISCHARGE. JUDY SEBASTIAN SARAH Discharge instructions and discharge home medications reviewed with Patient and a copy given. All questions have been answered and understanding verbalized.
[2021-09-06] MEDS ORDERED: FERROUS SULFATE 325 MG TABLET. PO SCH (08:00)
== END 2021-09-05 16:25 | DRG 641 ==
LOC: ER 14:15 → 5 NORTH 15:52
PROVIDERS: ADMIT Student in an Organized Health Care Education/Training Program; ATTEND Student in an Organized Health Care Education/Training Program
DX: E87.1 Hypo-osmolality and hyponatremia (principal); L03.119 Cellulitis of unspecified part of limb; E44.0 Moderate protein-calorie malnutrition; E87.5 Hyperkalemia; G62.9 Polyneuropathy, unspecified; G89.29 Other chronic pain; I11.0 Hypertensive heart disease with heart failure; I50.9 Heart failure, unspecified; M19.041 Primary osteoarthritis, right hand; M19.042 Primary osteoarthritis, left hand; M40.204 Unspecified kyphosis, thoracic region; M47.812 Spondylosis without myelopathy or radiculopathy, cervical region; M81.0 Age-related osteoporosis without current pathological fracture; Z82.49 Family history of ischemic heart disease and other diseases of the circulatory system; Z87.891 Personal history of nicotine dependence; K21.9 Gastro-esophageal reflux disease without esophagitis; Z20.822 Contact with and (suspected) exposure to COVID-19
CPT/HCPCS: 36415; 71045; 72125; 80048; 80053; 80069; 81001; 82436; 82533; 82550; 82607; 83540; 83550; 83690; 83735; 83930; 83935; 84100; 84133; 84300; 84443; 84484; 85007; 85025; 87086; 87428; 93005; 96360; J0696; J1644; J3301; J3490; J7030; J7050; J7512; U0003; 97110-GP; 97116-GP; 97530-GO; 97535-GO; 99285-25; G0378